=== PATIENT | male | born 1935 | race African-American/Black ===

== ENCOUNTER 2019-09-17 14:50 | Inpatient (IN) | payer MEDICARE, OTHER ==
[~2019-09-17] VITALS: Ht 165.1 cm; Wt 65.8 kg
[~2019-09-17 14:50] MED LIST: AMIO200T4 PO; ASPI325T8 PO; ATOR80TA72 PO; CARV25TA2 PO; DIGO125T PO; DILT120C99 PO; FOLI1TAB4 PO; FURO20TA3 PO; FURO40TA4 PO; HYDR-2761 PO; INSU100I11 SQ; LINA5TAB PO; LISI-334 PO; LISI-338 PO; LORA2ORA7 SL; METF10007 PO; METO50TA4 PO; MORP100S3 SL; OMEG1CAP27 PO; POTA10TA12 PO; TAMS0.4C97 PO
--- NOTE | 2019-09-17 15:17 | PHYS DOC ---
Past Medical History Past Medical History: Diabetes-Type II, Heart Disease Additional Past Medical Histor: BYPASS 1999 (CARMEN CHEN APRN) Past Surgical History: Coronary Bypass Surgery, Other Additional Past Surgical Histo: NECK, hand (CARMEN CHEN APRN) Alcohol Use: None Drug Use: None (CARMEN CHEN APRN) Adult General Chief Complaint Chief Complaint: BEDSORES HPI HPI Patient is a 84 year old male who presents with pressure ulcer. Living at home with daughter on Hospice for failure to thrive and weakness. Recent admission in June 2019. Offered placement in [place], refused so sent home on hospice Patient reports he has had a buttock ulcer since April. No wound care being provided. No fever. Bed bound at this time. He is resting in no distress. Arrived via EMS (CARMEN CHEN APRN) Review of Systems Review of Systems Constitutional: Denies fever or chills [] Eyes: Denies change in visual acuity, redness, or eye pain [] HENT: Denies nasal congestion or sore throat [] Respiratory: Denies cough or shortness of breath [] Cardiovascular: No additional information not addressed in HPI [] GI: Denies abdominal pain, nausea, vomiting, bloody stools or diarrhea [] : Denies dysuria or hematuria [] Musculoskeletal: Denies joint pain []c/o lower back pain, skin ulcer Integument: Denies rash or skin lesions [] Neurologic: Denies headache, focal weakness or sensory changes [] Endocrine: Denies polyuria or polydipsia [] All other systems were reviewed and found to be within normal limits, except as documented in this note. (CARMEN CHEN APRN) Current Medications Current Medications Current Medications Medications (Trade) Dose Ordered Sig/Pat Start Time Stop Time Status Last Admin Dose Admin Acetaminophen/ Hydrocodone Bitart (Lortab 5/325) 1 tab 1X ONCE 09/17/19 15:45 09/17/19 15:46 DC (BALDEMAR KONG MD) Allergies Allergies Allergies Coded Allergies Type Severity Reaction Last Updated Verified No Known Drug Allergies 05/17/19 No (BALDEMAR KONG MD) Physical Exam Physical Exam Constitutional: Well developed, well nourished, no acute distress, non-toxic appearance. [] HENT: Normocephalic, atraumatic, bilateral external ears normal, oropharynx moist, no oral exudates, nose normal. [] Eyes: PERRLA, EOMI, conjunctiva normal, no discharge. [] Neck: Normal range of motion, no tenderness, supple, no stridor. [] Cardiovascular:Heart rate regular rhythm, no murmur [] Lungs & Thorax: Bilateral breath sounds clear to auscultation [] Abdomen: Bowel sounds normal, soft, no tenderness, no masses, no pulsatile masses. [] Skin: Warm, dry, no erythema, no rash. [] Back: no CVA tenderness. [] Lower sacrum area 6cm stage 2 pressure ulcer scant dried up blood, no streaking or purulent drainage, no abscess. normal ROM of spine, no bony TTP Extremities: No tenderness, no cyanosis, no clubbing, ROM intact, no edema. [] Neurologic: Alert and oriented X 3, normal motor function, normal sensory function, no focal deficits noted. [] Psychologic: Affect normal, judgement normal, mood normal. [] (CARMEN CHEN APRN) Current Patient Data Vital Signs Vital Signs Date Time Temp Pulse Resp B/P (MAP) Pulse Ox O2 Delivery O2 Flow Rate FiO2 09/17/19 15:45 16 09/17/19 15:00 80 110/62 (78) 95 09/17/19 14:53 97.6 Room Air 97.6 (BALDEMAR KONG MD) Lab Values Please see chart, labs reviewed (CARMEN CHEN APRN) EKG EKG [] (CARMEN CHEN APRN) Radiology/Procedures Radiology/Procedures Chest xray, No acute finding, EP interpretation[] (CARMEN CHEN APRN) Impressions: Chronic sacral pressure ulcer, inability to ambulate, leukocytosis, renal failure (CARMEN CHEN APRN) Course & Med Decision Making Course & Med Decision Making Pertinent Labs and Imaging studies reviewed. (See chart for details) []Patient here via EMS for pressure ulcer, lives with daughter, on hospice for weakness and failure to thrive. Last admit in May, refused NH care at that time. He is bed bound. Daughter having a hard time caring for him. Chronic sacral pressure ulcer since April, was healed up but broke open over the last week. 2 days ago dressing fell off and daughter has no more dressings at home. No hourly sales staff on weekends to assist. She was worried about wound care and called 911 to bring to the ER. 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 He is unable to ambulate or perform basic ADL's Discussed wound care in the ER with close fu with social work administrator and Hospice for wound are and placement, daughter would like him to be admitted at this point to help expedite/manage care, she is unable to manage his care, patient is in agreement for inpatient and NH transfer. He is a full code Admitted to Hospitalist WBC result, 21. Added on lactic and blood cultures, remains with no fever. Hx of incontience. dairrhea last week. no abdominal pain Chronic dysphagia, will add on chest xray NS 500 cc bolus, not provided with 30ml/kg due to hx of CHF. BP stable Vancomycin and Zosyn Chest xray, no acute finding. Re- discussed case with Hospitalist to update on patient status. No further orders at this time (CARMEN CHEN APRN) Course & Med Decision Making Staff Physician Addendum: I was working in the ER during the course of this patient's visit. I was available for consultation as needed, but I was not directly involved in the care of this patient. (BALDEMAR KONG MD) Dragon Disclaimer Dragon Disclaimer This electronic medical record was generated, in whole or in part, using a voice recognition dictation system. (CARMEN CHEN APRN) Departure Departure Impression: Primary Impression: Pressure ulcer Additional Impressions: Leukocytosis Unable to ambulate Renal failure Disposition: ADMITTED INPATIENT ([place]) Condition: STABLE Referrals: LOREE DESAI (PCP) Problem Qualifiers CARMEN CHEN APRN Sep 17, 2019 15:17 BALDEMAR KONG MD Sep 18, 2019 23:11
[2019-09-17] MEDS ORDERED: HYDROcodone/APAP 5/325MG 1 TAB TABLET PO ONE (15:45)
--- NOTE | 2019-09-17 16:39 | PDOC1 ---
History and Physical Date of Admission Date of Admission DATE: 09/17/19 TIME: 16:27 Identification/Chief Complaint Chief Complaint Unable to care for self Source Source: Patient History of Present Illness History of Present Illness Mr Jacome is an 84yo M w/ PMHx Arthritis, Diabetes-Type II, Hypertension, CAD s/p CABG in 1999, systolic CHF with EF15% who came in per daughter from home for progressive generalized weakness, inability to urinate, and new bedbound status. He is unable to perform any activities of daily living and his daughter is unable to completely care for him by herself. He has been previously seen 4 additional times this year for episodes of atrial fibrillation, urinary retention, and BPH. Seen by PT/OT recommended rehabili tation at SNF last visit and his family decided to home with palliative/hospice home health, but now that he is completely bedbound for the past 3 weeks, and has bedsores for the same amount of time she feels he needs further care. Patient reports he has had a buttock ulcer since 3 weeks ago with no formal wound care being provided. No fevers. Bed bound at this time. He is resting in no distress. Arrived via EMS as his family could not get him into a private vehicle. WBC 21.6, Hb 11.1, K 5.6, BUN 62, Cr 2.8, glucose 245, admit for further care. Past Medical History Cardiovascular: AFIB, CAD, HTN, Hyperlipidemia, Other Pulmonary: No pertinent hx CENTRAL NERVOUS SYSTEM: Periperal neuropathy Musculoskeletal: Osteoarthritis Rheumatologic: Rheumatoid arthritis Renal/: Chronic renal insuff, UTI, Benign prostatic enlarg. Endocrine: Diabetes Past Surgical History Past Surgical History: CABG, Cataract Removal, Other Family History Family History: Diabetes Social History ALCOHOL: none Drugs: None Current Problem List Problem List Problems Medical Problems: (1) Pressure ulcer Status: Acute Current Medications Current Medications Current Medications Acetaminophen/ Hydrocodone Bitart (Lortab 5/325) 1 tab 1X ONCE PO ; Start 09/17/19 at 15:45; Stop 09/17/19 at 15:46; Status DC Active Scripts Active Lorazepam Intensol (Lorazepam) 2 Mg/1 Ml Oral.conc 2 Mg SL PRN Q6HRS PRN 30 Days Morphine Sulfate 100 Mg/5 Ml Solution 4 Mg SL PRN Q3HRS PRN 30 Days Humalog (Insulin Lispro) 100 Unit/1 Ml Insuln.pen 0 Units SQ TIDWMEALS 30 Days For BG 151-200 - 4u 201-250 - 5u 251-300 - 7u 301-350 - 9u >351 - Call Aspirin 325 Mg Tablet 325 Mg PO DAILYWBKFT 30 Days Flomax (Tamsulosin Hcl) 0.4 Mg Cap.er.24h 0.4 Mg PO QHS 30 Days Reported Furosemide 40 Mg Tablet 40 Mg PO DAILY Amiodarone Hcl 200 Mg Tablet 200 Mg PO DAILY Centrum Silver Chewable Tablet (Folic Acid/Multivits-Min/Lut) 1 Each Tab.chew 1 Each PO DAILY08 Tradjenta (Linagliptin) 5 Mg Tablet 5 Mg PO DAILY Potassium Chloride 10 Meq Tablet.er 10 Meq PO DAILY Fish Oil 1,000 Mg Softgel ([place]-3 Fatty Acids/Fish Oil) 1 Each Capsule 1 Each PO DAILY Atorvastatin Calcium 80 Mg Tablet 40 Mg PO DAILY Allergies Allergies: Coded Allergies: No Known Drug Allergies (Unverified , 05/17/19) Physical Exam General: Alert, Cooperative, mild distress HEENT: Atraumatic, PERRLA, EOMI, Mucous membr. moist/pink Lungs: Clear to auscultation, Normal air movement Heart: S1S2, irregularly irregular Abdomen: Normal bowel sounds, Soft, No tenderness, No hepatosplenomegaly, No masses Rectal Exam: hemorrhoids Extremities: No clubbing, No cyanosis, No edema, Normal pulses, No tenderness/swelling Skin: Other (Large 4x6cm foul smelling decubitus ulcer with some fat tissue visible, mostly stage II, part stage III) Neuro: Reflexes 2+, Other (Decreased sensation in glove and stocking distribution) Vitals Vitals Vital Signs Date Time Temp Pulse Resp B/P (MAP) Pulse Ox O2 Delivery O2 Flow Rate FiO2 09/17/19 15:45 16 09/17/19 14:53 97.6 85 106/56 (73) 95 Room Air 97.6 VTE Prophylaxis Ordered VTE Prophylaxis Devices: Yes VTE Pharmacological Prophylaxi: Yes Assessment/Plan Assessment/Plan A/P: Sacral decubitus ulcer - with foul-smell, likely infected, based on his WBC as well. Will give empiric vancomycin, ceftriaxone. Consult ID RYAN on CKD2 - likely vasomotor nephropathy, unable to feed himself. Was active with hospice at home, but feels he needs hospice in a SNF setting Hyperkalemia - K 5.6, will hold potassium supplements, 1L NSS, will not likely be able to give more given his severe CHF Leukocytosis - no diarrhea per his sister, this is likely from his sacral ulcer Unable to walk - 3 weeks bedbound Falls at home recurrently - now bedbound Adult failure to thrive - nutrition to see Severe benign prostatic hypertrophy - cont flomax, previously required a elaine Diabetes - previously controlled. Now hyperglycemic. Basal bolus plus regimen in house Cognitive decline - progressive A fib s.p RVR - converted. 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 Will monitor FEN - ADA cardiac diet PPX - Heparin CODE - DNR/DNI per patient and sister bedside Dispo - Inpatient for infected decubitis ulcer, needs SNF with hospice on d/c RITIKA COLLADO MD Sep 17, 2019 16:39
[2019-09-17 16:53] LABS: BASO % 0 % (0-3); EOS % 0 % (0-3); HEMATOCRIT 33.9 % (39.0-53.0); HEMOGLOBIN 11.1 g/dL (13.0-17.5); LYMPH # 0.7 x10^3/uL (1.0-4.8); LYMPH % 3 % (24-48); MEAN CORPUSCULAR HEMOGLOBIN 29 pg (25-35); MEAN CORPUSCULAR HGB CONC 33 g/dL (31-37); MEAN CORPUSCULAR VOLUME 88 fL (79-100); MONO # 0.7 x10^3/uL (0.0-1.1); MONO % 3 % (0-9); NEUT # 20.1 x10^3/uL (1.8-7.7); NEUT % 93 % (31-73); PLATELET COUNT 180 x10^3/uL (140-400); RED BLOOD COUNT 3.86 x10^6/uL (4.30-5.70); RED CELL DISTRIBUTION WIDTH 18.8 % (11.5-14.5); WHITE BLOOD COUNT 21.6 x10^3/uL (4.0-11.0)
[2019-09-17 16:58] LABS: CALCIUM 8.6 mg/dL (8.5-10.1); CREATININE 2.8 mg/dL (0.7-1.3); GFR 26.4; POTASSIUM 5.6 mmol/L (3.5-5.1)
[2019-09-17] MEDS ORDERED: fentaNYL PF VIAL 100 MCG/2 ML VIAL IV ONE (17:00)
[2019-09-17] MEDS ORDERED: fentaNYL PF VIAL 100 MCG/2 ML VIAL IV PRN (17:00)
[2019-09-17 17:10] LABS: % BANDS 4 % (0-9); % LYMPHS 7 % (24-48); % MONOS 4 % (0-10); % SEGS 85 % (35-66)
[2019-09-17] MEDS ORDERED: IV NORMAL SALINE 500ML BAG 500 ML IV ONE (17:15)
[2019-09-17] MEDS ORDERED: DEXTROSE 50% 25 GM / 50ML DISP.SYRIN. IV PRN (17:15)
[2019-09-17] MEDS ORDERED: IV NORMAL SALINE 1000ML BAG 1,000 ML IV ONE (17:15)
[2019-09-17] MEDS ORDERED: MORPHINE SULFATE 20 MG/ML CONC SOLUTION. SL PRN (17:15)
[2019-09-17] MEDS ORDERED: LORazepam INTENSOL 2 MG/ML ORAL.CONC SL PRN (17:15)
[2019-09-17 17:18] LABS: ACANTHOCYTES MANY; ANISOCYTOSIS MOD; PLT ESTIMATE ADEQUATE (ADEQUATE); POLYCHROMASIA SLIGHT; SCHISTOCYTES FEW
[2019-09-17 17:19] LABS: TOXIC GRANULATION SLIGHT; TOXIC VACUOLATION SLIGHT
[2019-09-17] MEDS ORDERED: VANCOMYCIN PER PHARMACY MC PRN (17:45)
[2019-09-17] MEDS ORDERED: PIP/TAZO PER PHARMACY MC PRN (17:45)
[2019-09-17] MEDS ORDERED: VANCOMYCIN 1.25 GM in IV NORMAL SALINE 250ML 250 ML IV ONE (18:00)
[2019-09-17] MEDS ORDERED: cefTRIAXone IV Push 1 GM VIAL. IVP SCH (18:00)
--- NOTE | 2019-09-17 18:52 | NUR ---
The patient, CEDRIC BRINK, 84 y/o, M admitted by RITIKA COLLADO MD, was given written information regarding hospital policies, unit procedures and contact persons. Valuables were checked and left with him.
[2019-09-17 19:00] VITALS: BP 107/61
[2019-09-17] MEDS: VANCOMYCIN PER PHARMACY MC PRN ×2 (19:31→20:19)
--- NOTE | 2019-09-17 20:19 | NUR ---
Pharmacy Vancomycin Dosing Note S:Consulted to monitor and dose vancomycin started 09/17/19. O:CEDRIC BRINK is a 84 year old M with Sepsis, Pressure ulcer Height: 5 feet, 5 inches Weight: 59kg [place] Body Weight: 61.50 Adjusted Body Weight: 60.50 Dosing Weight: Actual Other Antibiotics: ceftriaxone 1g q24h LABS: Last BUN: 62 Last Creatinine: 2.8 Creatinine Clearance: 16 mL/min Last WBC: 21.6 Last Procalcitonin: Tmax (past 24 hours): 97.6 Vancomycin Dosing: Loading Dose: 1250 mg x1 Dosing Weight: Actual Target Trough: 15-20 A: Based on: weight and renal function P: 1. Dose Vancomycin 1250 mg IV One Time 2. Follow up with labs in am to time future doses and levels 3. Pharmacy will continue to monitor, follow and adjust therapy as needed. Luz Elena Rice RPH, 09/17/19 2019
[2019-09-17] MEDS ORDERED: INSULIN LISPRO 300 UNITS/3 ML VIAL. SQ SCH (21:00)
[2019-09-17] MEDS: TAMSULOSIN 0.4 MG CAP.ER.24H. PO SCH (22:25)
[2019-09-17] MEDS: ATORVASTATIN CALCIUM 40 MG TABLET. PO SCH (22:25)
[2019-09-17] MEDS: INSULIN GLARGINE SYRINGE. SQ SCH (22:35)
[2019-09-17 23:00] VITALS: BP 103/62
[2019-09-18 00:40] LABS: BILIRUBIN,URINE SMALL (NEG); CLARITY,URINE CLOUDY; COLOR,URINE AMBER; NITRITE,URINE NEGATIVE (NEG); PH,URINE 5.5; PROTEIN,URINE 100 mg/dL (NEG-TRACE)
[2019-09-18 00:44] LABS: SQUAMOUS EPITHELIAL CELL,UR FEW /LPF
[2019-09-18 00:45] LABS: AMORPHOUS SEDIMENT,UR PRESENT /HPF; BACTERIA,URINE 0 /HPF (0-FEW); GRANULAR CASTS,URINE FEW /HPF; HYALINE CASTS, URINE FEW /HPF; WBC,URINE OCC /HPF (0-4)
--- NOTE | 2019-09-18 01:53 | RAD ---
PROCEDURE: CHEST AP ONLY CLINICAL INDICATION: Dysphagia related leukocytosis. COMPARISON: 06/23/2019 FINDINGS: CABG changes noted. No pneumothorax identified. Cardiac and mediastinal contours unremarkable. No pulmonary consolidation or acute airspace disease. No acute osseous abnormalities identified. IMPRESSION: No pulmonary consolidation or acute airspace disease. Electronically signed by: Solo Oliveira DO (09/18/2019 1:50 AM) [facility]
[2019-09-18 03:00] VITALS: BP 91/56
[2019-09-18 03:23] LABS: BASO # 0.1 x10^3/uL (0.0-0.2); BASO % 0 % (0-3); EOS % 0 % (0-3); HEMATOCRIT 29.3 % (39.0-53.0); HEMOGLOBIN 9.6 g/dL (13.0-17.5); LYMPH # 0.6 x10^3/uL (1.0-4.8); LYMPH % 3 % (24-48); MEAN CORPUSCULAR HEMOGLOBIN 29 pg (25-35); MEAN CORPUSCULAR HGB CONC 33 g/dL (31-37); MEAN CORPUSCULAR VOLUME 88 fL (79-100); MONO # 0.6 x10^3/uL (0.0-1.1); MONO % 3 % (0-9); NEUT % 93 % (31-73); PLATELET COUNT 152 x10^3/uL (140-400); RED BLOOD COUNT 3.34 x10^6/uL (4.30-5.70); RED CELL DISTRIBUTION WIDTH 18.3 % (11.5-14.5); WHITE BLOOD COUNT 19.3 x10^3/uL (4.0-11.0)
[2019-09-18 03:42] LABS: ALBUMIN/GLOBULIN RATIO 0.6 (1.0-1.7); CALCIUM 8.2 mg/dL (8.5-10.1); CREATININE 2.5 mg/dL (0.7-1.3); GFR 30.1; POTASSIUM 5.2 mmol/L (3.5-5.1); TOTAL BILIRUBIN 1.9 mg/dL (0.2-1.0); TOTAL PROTEIN 5.4 g/dL (6.4-8.2)
[2019-09-18 07:00] VITALS: BP 90/42
[2019-09-18] MEDS ORDERED: ACETAMINOPHEN 500 MG TABLET PO PRN (08:30)
[2019-09-18] MEDS ORDERED: ONDANSETRON PF 4 MG/2 ML VIAL. IVP PRN (08:30)
[2019-09-18] MEDS: OMEGA-3 FATTY ACIDS/FISH OIL 1,000 MG CAPSULE. PO SCH (09:00)
--- NOTE | 2019-09-18 09:42 | PDOC2 ---
CONSULT Date of Consult Date of Consult DATE: 09/18/19 TIME: 09:34 Reason for Consult Reason for Consult: RYAN Source Source: Chart review History of Present Illness Reason for Visit: Mr Jacome is 84yo AA M w/ PMHx Arthritis, Diabetes-Type II, Hypertension, CAD s/p CABG in 1999, systolic CHF with EF15% who came in per daughter from home for progressive generalized weakness, inability to urinate, and new bedbound status. He is unable to perform any activities of daily living and his daughter is unable to completely care for him by herself. He has been previously seen 4 additional times this year for episodes of atrial fibrillation, urinary retention, and BPH. Seen by PT/OT recommended rehabilitation at SNF last visit and his family decided to home with palliative/hospice home health, but now that he is completely bedbound for the past 3 weeks, and has bedsores for the same amount of time she feels he needs further care. Patient reports he has had a buttock ulcer since 3 weeks ago with no formal wound care being provided. No fevers. Bed bound at this time. Past Medical History Cardiovascular: AFIB, CAD, HTN, Hyperlipidemia, Other Pulmonary: No pertinent hx CENTRAL NERVOUS SYSTEM: Periperal neuropathy Musculoskeletal: Osteoarthritis Rheumatologic: Rheumatoid arthritis Renal/: Chronic renal insuff, UTI, Benign prostatic enlarg. Endocrine: Diabetes Past Surgical History Past Surgical History: CABG, Cataract Removal, Other Family History Family History: Diabetes Social History ALCOHOL: none Drugs: None Lives: with Family Current Problem List Problem List Problems Medical Problems: (1) Leukocytosis Status: Acute (2) Pressure ulcer Status: Acute (3) Unable to ambulate Status: Acute Current Medications Current Medications Current Medications Acetaminophen/ Hydrocodone Bitart (Lortab 5/325) 1 tab 1X ONCE PO ; Start 09/17/19 at 15:45; Stop 09/17/19 at 15:46; Status DC Fentanyl Citrate (Fentanyl 2ml Vial) 25 mcg 1X ONCE IV Last administered on 09/17/19at 16:58; Start 09/17/19 at 17:00; Stop 09/17/19 at 17:01; Status DC Fentanyl Citrate (Fentanyl 2ml Vial) 25 mcg PRN Q3HRS PRN IV PAIN Last administered on 09/17/19at 18:31; Start 09/17/19 at 17:00; Stop 09/18/19 at 16:59 Sodium Chloride 500 ml @ 500 mls/hr 1X ONCE IV Last administered on 09/17/19at 17:11; Start 09/17/19 at 17:15; Stop 09/17/19 at 18:14; Status DC Amiodarone HCl (Cordarone) 200 mg DAILY PO ; Start 09/18/19 at 09:00 Aspirin (Rachel Aspirin) 325 mg DAILYWBKFT PO ; Start 09/18/19 at 08:00 Lorazepam (Ativan Intensol) 2 mg PRN Q6HRS PRN SL ANXIETY / AGITATION; Start 09/17/19 at 17:15 Morphine Sulfate (Roxanol Conc) 4 mg PRN Q3HRS PRN SL PAIN; Start 09/17/19 at 17:15 Tamsulosin HCl (Flomax) 0.4 mg QHS PO Last administered on 09/17/19at 22:25; Start 09/17/19 at 21:00 Atorvastatin Calcium (Lipitor) 40 mg QHS PO Last administered on 09/17/19at 22:25; Start 09/17/19 at 21:00 Multivitamins (Thera M Plus) 1 tab DAILY PO ; Start 09/18/19 at 09:00 Fish Oil (Fish Oil) 1,000 mg DAILY PO ; Start 09/18/19 at 09:00 Sodium Chloride 1,000 ml @ 75 mls/hr 1X ONCE IV Last administered on 09/17/19at 22:48; Start 09/17/19 at 17:15; Stop 09/18/19 at 06:34; Status DC Vancomycin HCl 1.25 gm/Sodium Chloride 250 ml @ 166.667 mls/hr 1X ONCE IV Last administered on 09/17/19at 22:48; Start 09/17/19 at 18:00; Stop 09/17/19 at 19:29; Status DC Vancomycin HCl (Vanco Per Pharmacy) 1 each PRN DAILY PRN MC SEE COMMENTS Last administered on 09/17/19at 20:19; Start 09/17/19 at 17:15 Ceftriaxone Sodium (Rocephin) 1 gm Q24H IVP Last administered on 09/17/19at 17:47; Start 09/17/19 at 18:00 Insulin Glargine (Lantus Syringe) 8 unit QHS SQ Last administered on 09/17/19at 22:35; Start 09/17/19 at 21:00 Insulin Human Lispro (HumaLOG) 0-7 UNITS TIDACHC SQ Last administered on 09/17/19at 22:52; Start 09/17/19 at 21:00; Stop 09/18/19 at 08:30; Status DC Dextrose (Dextrose 50%-Water Syringe) 12.5 gm PRN Q15MIN PRN IV SEE COMMENTS; Start 09/17/19 at 17:15 Vancomycin HCl (Vanco Per Pharmacy) 1 each PRN DAILY PRN MC SEE COMMENTS; Start 09/17/19 at 17:45; Status UNV Piperacillin Sod/ Tazobactam Sod (Zosyn Per Pharmacy) 1 each PRN DAILY PRN MC SEE COMMENTS; Start 09/17/19 at 17:45; Status UNV Acetaminophen/ Hydrocodone Bitart (Lortab 5/325) 1 tab PRN Q4HRS PRN PO PAIN; Start 09/18/19 at 08:30 Ondansetron HCl (Zofran) 4 mg PRN Q6HRS PRN IVP NAUSEA/VOMITING; Start 09/18/19 at 08:30 Acetaminophen (Tylenol) 500 mg PRN Q6HRS PRN PO MILD PAIN / TEMP; Start 09/18/19 at 08:30 Linagliptin (Tradjenta) 5 mg DAILY PO ; Start 09/18/19 at 09:00 Active Scripts Active Lorazepam Intensol (Lorazepam) 2 Mg/1 Ml Oral.conc 2 Mg SL PRN Q6HRS PRN 30 Days Morphine Sulfate 100 Mg/5 Ml Solution 4 Mg SL PRN Q3HRS PRN 30 Days Humalog (Insulin Lispro) 100 Unit/1 Ml Insuln.pen 0 Units SQ TIDWMEALS 30 Days For BG 151-200 - 4u 201-250 - 5u 251-300 - 7u 301-350 - 9u >351 - Call Aspirin 325 Mg Tablet 325 Mg PO DAILYWBKFT 30 Days Flomax (Tamsulosin Hcl) 0.4 Mg Cap.er.24h 0.4 Mg PO QHS 30 Days Reported Furosemide 40 Mg Tablet 40 Mg PO DAILY Amiodarone Hcl 200 Mg Tablet 200 Mg PO DAILY Centrum Silver Chewable Tablet (Folic Acid/Multivits-Min/Lut) 1 Each Tab.chew 1 Each PO DAILY08 Tradjenta (Linagliptin) 5 Mg Tablet 5 Mg PO DAILY Potassium Chloride 10 Meq Tablet.er 10 Meq PO DAILY Fish Oil 1,000 Mg Softgel (Paoli-3 Fatty Acids/Fish Oil) 1 Each Capsule 1 Each PO DAILY Atorvastatin Calcium 80 Mg Tablet 40 Mg PO DAILY Allergies Allergies: Coded Allergies: No Known Drug Allergies (Unverified , 05/17/19) ROS Review of System Per HPI, rest negative Physical Exam Physical Exam GENERAL: NAD HEENT OM moist , On O2 by NC NECK Supple HEART: Normal S1, S2. LUNGS: Clear. ABDOMEN: Soft, NT EXTREMITIES: Trace edema - No Elaine NEURO- Grossly Normal SKIN - no Rash Vital Signs Vital Signs Date Time Temp Pulse Resp B/P (MAP) Pulse Ox O2 Delivery O2 Flow Rate FiO2 09/18/19 07:00 97.8 75 16 90/42 (58) 91 Room Air 97.8 Assessment & Plan RYAN - Vasomotor- Poor PO intake Has baseline CKD , UA unremarkable Improving with IVF - cautious with IVF EF of 15% Supportive care, strict I/O Monitor Check Renal US - c/o inability to urinate, per RN unable to place elaine , Had Elaine in past and severe BPH Hyperkalemia K supplements at home Held- Improved K mildly elevated. Monitor CKD-baseline Unknown Hospitalized in April with Cr 1.5 -1.7, peaked at 2.1 Renal US- Echogenic Kidneys Hypotension- On multiple BP meds as OP Currently Holding antihypertensives A fib with RVR - converted. Now in hospice Acute on chronic systolic CHF- stable, compensated ischemic cardiomyopathy with low EF 15% Recd Lasix IV per cardiology CAD, s/p CABG Severe benign prostatic hypertrophy- US in April no e/o BEE , previously required elaine DM - per primary Sacral decubitus ulcer - with foul-smell, ID consulted Leukocytosis Falls at home recurrently - now bedbound failure to thrive - nutrition to see CAD s/p CABG in 1999 - stable Hypertension - have backed off meds in hospice Severe ischemic cardiomyopathy with an EF of 15% - History of renal stones Labs Labs Laboratory Tests Test 09/17/19 16:40 09/17/19 20:40 09/17/19 21:42 09/18/19 00:30 White Blood Count 21.6 x10^3/uL (4.0-11.0) Red Blood Count 3.86 x10^6/uL (4.30-5.70) Hemoglobin 11.1 g/dL (13.0-17.5) Hematocrit 33.9 % (39.0-53.0) Mean Corpuscular Volume 88 fL (79-100) Mean Corpuscular Hemoglobin 29 pg (25-35) Mean Corpuscular Hemoglobin Concent 33 g/dL (31-37) Red Cell Distribution Width 18.8 % (11.5-14.5) Platelet Count 180 x10^3/uL (140-400) Neutrophils (%) (Auto) 93 % (31-73) Lymphocytes (%) (Auto) 3 % (24-48) Monocytes (%) (Auto) 3 % (0-9) Eosinophils (%) (Auto) 0 % (0-3) Basophils (%) (Auto) 0 % (0-3) Neutrophils # (Auto) 20.1 x10^3/uL (1.8-7.7) Lymphocytes # (Auto) 0.7 x10^3/uL (1.0-4.8) Monocytes # (Auto) 0.7 x10^3/uL (0.0-1.1) Eosinophils # (Auto) 0.0 x10^3/uL (0.0-0.7) Basophils # (Auto) 0.0 x10^3/uL (0.0-0.2) Segmented Neutrophils % 85 % (35-66) Band Neutrophils % 4 % (0-9) Lymphocytes % 7 % (24-48) Monocytes % 4 % (0-10) Toxic Granulation Slight Toxic Vacuolation Slight Platelet Estimate Adequate (ADEQUATE) Polychromasia Slight Anisocytosis Mod Acanthocytes Many Schistocytes Few Sodium Level 142 mmol/L (136-145) Potassium Level 5.6 mmol/L (3.5-5.1) Chloride Level 106 mmol/L (98-107) Carbon Dioxide Level 26 mmol/L (21-32) Anion Gap 10 (6-14) Blood Urea Nitrogen 62 mg/dL (8-26) Creatinine 2.8 mg/dL (0.7-1.3) Estimated GFR (Cockcroft-Gault) 26.4 Glucose Level 245 mg/dL (70-99) Lactic Acid Level 2.2 mmol/L (0.4-2.0) 1.8 mmol/L (0.4-2.0) Calcium Level 8.6 mg/dL (8.5-10.1) Glucose (Fingerstick) 228 mg/dL (70-99) Urine Collection Type Unknown Urine Color [place] Urine Clarity Cloudy Urine pH 5.5 Urine Specific [place] 1.015 Urine Protein 100 mg/dL (NEG-TRACE) Urine Glucose (UA) 100 mg/dL (NEG) Urine Ketones (Stick) Negative mg/dL (NEG) Urine Blood Large (NEG) Urine Nitrite Negative (NEG) Urine Bilirubin Small (NEG) Urine Urobilinogen Dipstick 1.0 mg/dL (0.2 mg/dL) Urine Leukocyte Esterase Negative (NEG) Urine RBC 3-5 /HPF (0-2) Urine WBC Occ /HPF (0-4) Urine Squamous Epithelial Cells Few /LPF Urine Amorphous Sediment Present /HPF Urine Bacteria 0 /HPF (0-FEW) Urine Hyaline Casts Few /HPF Urine Granular Casts Few /HPF Urine Mucus Mod /LPF Test 09/18/19 02:35 09/18/19 07:52 White Blood Count 19.3 x10^3/uL (4.0-11.0) Red Blood Count 3.34 x10^6/uL (4.30-5.70) Hemoglobin 9.6 g/dL (13.0-17.5) Hematocrit 29.3 % (39.0-53.0) Mean Corpuscular Volume 88 fL (79-100) Mean Corpuscular Hemoglobin 29 pg (25-35) Mean Corpuscular Hemoglobin Concent 33 g/dL (31-37) Red Cell Distribution Width 18.3 % (11.5-14.5) Platelet Count 152 x10^3/uL (140-400) Neutrophils (%) (Auto) 93 % (31-73) Lymphocytes (%) (Auto) 3 % (24-48) Monocytes (%) (Auto) 3 % (0-9) Eosinophils (%) (Auto) 0 % (0-3) Basophils (%) (Auto) 0 % (0-3) Neutrophils # (Auto) 18.0 x10^3/uL (1.8-7.7) Lymphocytes # (Auto) 0.6 x10^3/uL (1.0-4.8) Monocytes # (Auto) 0.6 x10^3/uL (0.0-1.1) Eosinophils # (Auto) 0.0 x10^3/uL (0.0-0.7) Basophils # (Auto) 0.1 x10^3/uL (0.0-0.2) Sodium Level 140 mmol/L (136-145) Potassium Level 5.2 mmol/L (3.5-5.1) Chloride Level 106 mmol/L (98-107) Carbon Dioxide Level 25 mmol/L (21-32) Anion Gap 9 (6-14) Blood Urea Nitrogen 59 mg/dL (8-26) Creatinine 2.5 mg/dL (0.7-1.3) Estimated GFR (Cockcroft-Gault) 30.1 BUN/Creatinine Ratio 24 (6-20) Glucose Level 237 mg/dL (70-99) Calcium Level 8.2 mg/dL (8.5-10.1) Total Bilirubin 1.9 mg/dL (0.2-1.0) Aspartate Amino Transf (AST/SGOT) 277 U/L (15-37) Alanine Aminotransferase (ALT/SGPT) 244 U/L (16-63) Alkaline Phosphatase 104 U/L (46-116) Total Protein 5.4 g/dL (6.4-8.2) Albumin 2.0 g/dL (3.4-5.0) Albumin/Globulin Ratio 0.6 (1.0-1.7) Glucose (Fingerstick) 216 mg/dL (70-99) Laboratory Tests Test 09/17/19 16:40 09/17/19 20:40 09/17/19 21:42 09/18/19 00:30 White Blood Count 21.6 x10^3/uL (4.0-11.0) Red Blood Count 3.86 x10^6/uL (4.30-5.70) Hemoglobin 11.1 g/dL (13.0-17.5) Hematocrit 33.9 % (39.0-53.0) Mean Corpuscular Volume 88 fL (79-100) Mean Corpuscular Hemoglobin 29 pg (25-35) Mean Corpuscular Hemoglobin Concent 33 g/dL (31-37) Red Cell Distribution Width 18.8 % (11.5-14.5) Platelet Count 180 x10^3/uL (140-400) Neutrophils (%) (Auto) 93 % (31-73) Lymphocytes (%) (Auto) 3 % (24-48) Monocytes (%) (Auto) 3 % (0-9) Eosinophils (%) (Auto) 0 % (0-3) Basophils (%) (Auto) 0 % (0-3) Neutrophils # (Auto) 20.1 x10^3/uL (1.8-7.7) Lymphocytes # (Auto) 0.7 x10^3/uL (1.0-4.8) Monocytes # (Auto) 0.7 x10^3/uL (0.0-1.1) Eosinophils # (Auto) 0.0 x10^3/uL (0.0-0.7) Basophils # (Auto) 0.0 x10^3/uL (0.0-0.2) Segmented Neutrophils % 85 % (35-66) Band Neutrophils % 4 % (0-9) Lymphocytes % 7 % (24-48) Monocytes % 4 % (0-10) Toxic Granulation Slight Toxic Vacuolation Slight Platelet Estimate Adequate (ADEQUATE) Polychromasia Slight Anisocytosis Mod Acanthocytes Many Schistocytes Few Sodium Level 142 mmol/L (136-145) Potassium Level 5.6 mmol/L (3.5-5.1) Chloride Level 106 mmol/L (98-107) Carbon Dioxide Level 26 mmol/L (21-32) Anion Gap 10 (6-14) Blood Urea Nitrogen 62 mg/dL (8-26) Creatinine 2.8 mg/dL (0.7-1.3) Estimated GFR (Cockcroft-Gault) 26.4 Glucose Level 245 mg/dL (70-99) Lactic Acid Level 2.2 mmol/L (0.4-2.0) 1.8 mmol/L (0.4-2.0) Calcium Level 8.6 mg/dL (8.5-10.1) Glucose (Fingerstick) 228 mg/dL (70-99) Urine Collection Type Unknown Urine Color [place] Urine Clarity Cloudy Urine pH 5.5 Urine Specific [place] 1.015 Urine Protein 100 mg/dL (NEG-TRACE) Urine Glucose (UA) 100 mg/dL (NEG) Urine Ketones (Stick) Negative mg/dL (NEG) Urine Blood Large (NEG) Urine Nitrite Negative (NEG) Urine Bilirubin Small (NEG) Urine Urobilinogen Dipstick 1.0 mg/dL (0.2 mg/dL) Urine Leukocyte Esterase Negative (NEG) Urine RBC 3-5 /HPF (0-2) Urine WBC Occ /HPF (0-4) Urine Squamous Epithelial Cells Few /LPF Urine Amorphous Sediment Present /HPF Urine Bacteria 0 /HPF (0-FEW) Urine Hyaline Casts Few /HPF Urine Granular Casts Few /HPF Urine Mucus Mod /LPF Test 09/18/19 02:35 09/18/19 07:52 White Blood Count 19.3 x10^3/uL (4.0-11.0) Red Blood Count 3.34 x10^6/uL (4.30-5.70) Hemoglobin 9.6 g/dL (13.0-17.5) Hematocrit 29.3 % (39.0-53.0) Mean Corpuscular Volume 88 fL (79-100) Mean Corpuscular Hemoglobin 29 pg (25-35) Mean Corpuscular Hemoglobin Concent 33 g/dL (31-37) Red Cell Distribution Width 18.3 % (11.5-14.5) Platelet Count 152 x10^3/uL (140-400) Neutrophils (%) (Auto) 93 % (31-73) Lymphocytes (%) (Auto) 3 % (24-48) Monocytes (%) (Auto) 3 % (0-9) Eosinophils (%) (Auto) 0 % (0-3) Basophils (%) (Auto) 0 % (0-3) Neutrophils # (Auto) 18.0 x10^3/uL (1.8-7.7) Lymphocytes # (Auto) 0.6 x10^3/uL (1.0-4.8) Monocytes # (Auto) 0.6 x10^3/uL (0.0-1.1) Eosinophils # (Auto) 0.0 x10^3/uL (0.0-0.7) Basophils # (Auto) 0.1 x10^3/uL (0.0-0.2) Sodium Level 140 mmol/L (136-145) Potassium Level 5.2 mmol/L (3.5-5.1) Chloride Level 106 mmol/L (98-107) Carbon Dioxide Level 25 mmol/L (21-32) Anion Gap 9 (6-14) Blood Urea Nitrogen 59 mg/dL (8-26) Creatinine 2.5 mg/dL (0.7-1.3) Estimated GFR (Cockcroft-Gault) 30.1 BUN/Creatinine Ratio 24 (6-20) Glucose Level 237 mg/dL (70-99) Calcium Level 8.2 mg/dL (8.5-10.1) Total Bilirubin 1.9 mg/dL (0.2-1.0) Aspartate Amino Transf (AST/SGOT) 277 U/L (15-37) Alanine Aminotransferase (ALT/SGPT) 244 U/L (16-63) Alkaline Phosphatase 104 U/L (46-116) Total Protein 5.4 g/dL (6.4-8.2) Albumin 2.0 g/dL (3.4-5.0) Albumin/Globulin Ratio 0.6 (1.0-1.7) Glucose (Fingerstick) 216 mg/dL (70-99) Review All relevant outside records, renal labs, imaging studies, telemetry/EKG's were reviewed. Images Images CxR- No pulmonary consolidation or acute airspace disease. MUNDO PEOPLES MD Sep 18, 2019 09:42
[2019-09-18] MEDS ORDERED: VANCOMYCIN PER PHARMACY MC PRN (10:15)
--- NOTE | 2019-09-18 10:45 | PDOC ---
Provider Note Provider Note Pt seen and examined ID Consult dictated [id number] Thank you DAYSI HENRIQUEZ MD Sep 18, 2019 10:45
[2019-09-18] MEDS: MEROPENEM 500 MG in IV NORMAL SALINE 50ML 50 ML IV SCH ×2 (10:59→23:34)
[2019-09-18 11:00] VITALS: BP 116/53
--- NOTE | 2019-09-18 11:02 | CONS ---
DATE OF CONSULTATION: 09/18/2019 REFERRING PHYSICIAN: Garcia Long MD REASON FOR CONSULTATION: Infected sacral wound, antibiotic management. HISTORY OF PRESENT ILLNESS: This is an 84-year-old male with a history of severe cardiomyopathy, atrial fibrillation, coronary artery disease, hypertension, hyperlipidemia, peripheral neuropathy, rheumatoid arthritis, osteoarthritis, CKD, BPH, history of renal stones, multiple hospitalizations this year, was home on hospice, brought in to [facility] for progressive generalized weakness, inability to urinate and sacral wound which came on a couple of weeks ago as he is completely bedbound. The patient's daughter was unable to take care of him by herself. He was found to have a fever and leukocytosis. He received a dose of vancomycin and ceftriaxone. The patient had LFT elevation. Nurse was unable to put Downing catheter. Urology service is not available here at [facility]. ID consult has been requested for antibiotic management. White count was 21,000 with a creatinine of 2.8. The patient has CKD, BUN of 62, glucose of 245. Blood cultures were done, 1/4 have been reported positive for gram-positive cocci. Final ID and PREET is pending at this time. The patient had chest x-ray, which showed no pulmonary consolidation. Today, the patient states he still continues to feel weak, feels slightly better since admission. No other complaints. PAST MEDICAL HISTORY: Atrial fibrillation, severe cardiomyopathy, coronary artery disease, hypertension, hyperlipidemia, peripheral neuropathy, rheumatoid arthritis, osteoarthritis, CKD, BPH, renal stones. PAST SURGICAL HISTORY: CABG, cataract, back and neck surgery. FAMILY HISTORY: As per HPI. SOCIAL HISTORY: No smoking. ALLERGIES: No known drug allergies. CURRENT MEDICATIONS: IV vancomycin and ceftriaxone daily. REVIEW OF SYSTEMS: Negative except for above, though is limited. PHYSICAL EXAMINATION: VITAL SIGNS: Temperature 97.8, T-max 100, pulse 75, respirations 16, blood pressure 90/42, oxygen saturation 91% on room air. GENERAL: Alert, awake male, lying in bed, cachectic, weak appearing, chronically ill. HEENT: Sclerae are anicteric, no thrush. NECK: Supple. LUNGS: Decreased breath sounds. HEART: S1, S2. ABDOMEN: Soft, obese. EXTREMITIES: Edema both lower extremities, mild. BACK: Large foul smelling decubitus sacral ulcer with surrounding redness and erythema, very close to the anal canal. DERMATOLOGIC: Warm, dry. No generalized rash except for above. CENTRAL NERVOUS SYSTEM: Alert and awake, moves all four extremities, though weak. PSYCHIATRIC: Unable to put Downing in place. IMPRESSION: 1. Fever.source large infected decubitus necrotic wound 2. Leukocytosis. 3. Bacteremia / bottles. ID and PREET pending. Source likely infected sacral wound. 4. Infected sacral wound with surrounding cellulitis. 5. Chronic kidney disease. 6. Atrial fibrillation. 7. History of benign prostatic hypertrophy with hematuria and inability to place Downing. 8. Generalized anasarca. 9. Generalized debility. 10.Dysphagia RECOMMENDATIONS: 1. Discontinue IV vancomycin and Rocephin. 2. Start empiric daptomycin, meropenem and micafungin. Dose of daptomycin and meropenem may need to be adjusted per renal function. 3. Consult General Surgery for I and D. 4. Repeat blood cultures in a.m. 5. Follow up GPC in blood cultures. 6. Continue local wound care. 7. Prognosis very poor. 8. Recommend palliative care. 9. Continue supportive care. 10. Continue offload. Discussed with RN. Thank you, Dr. Long for consulting Infectious Disease to participate in this patient's care. If you have any questions, do not hesitate to contact us. DAYSI HENRIQUEZ MD DR: PAULA/swetha JOB#: [id number] / [id number] JULIET
--- NOTE | 2019-09-18 11:11 | PDOC ---
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 History of Present Illness History of Present Illness he has no complaints Lives at home with dtr but clearly bed bound Agreeable to SNU Huge sacral wound, ID on board, K was high - was on kCl 10 meqs at home WBC 19, no efvers, non toxic appearing CREat 2,5 AST ALT high - no sxs, prev on hospice EF 15% DM 2 on Tradjenta Lowish BP Called by RN, GPC 12/02 bottles, 2 sets drawn PLAN: Start vanc per pharmacy On rocephin - will defer to ID HOld lasix and Kcl, actually getting hydrated by renal ID with wound care for the sacral SW - agreeable to SNU Follw BC - THEY ARE POSITIVE AND HE HAS A SACRALW OUND DNR PRev on hospice Vitals Vitals Vital Signs Date Time Temp Pulse Resp B/P (MAP) Pulse Ox O2 Delivery O2 Flow Rate FiO2 09/18/19 08:30 Room Air 09/18/19 07:00 97.8 75 16 90/42 (58) 91 97.8 Physical Exam General: Alert, Cooperative, mild distress Lungs: Clear Abdomen: Normal bowel sounds, Soft, No tenderness, No hepatosplenomegaly, No masses Extremities: No clubbing, No cyanosis, No edema, Normal pulses, No tenderness/swelling Skin: Other (Large 4x6cm foul smelling decubitus ulcer with some fat tissue visible, mostly stage II, part stage III) Labs LABS Laboratory Tests Test 09/17/19 16:40 09/17/19 20:40 09/17/19 21:42 09/18/19 00:30 White Blood Count 21.6 x10^3/uL (4.0-11.0) Red Blood Count 3.86 x10^6/uL (4.30-5.70) Hemoglobin 11.1 g/dL (13.0-17.5) Hematocrit 33.9 % (39.0-53.0) Mean Corpuscular Volume 88 fL (79-100) Mean Corpuscular Hemoglobin 29 pg (25-35) Mean Corpuscular Hemoglobin Concent 33 g/dL (31-37) Red Cell Distribution Width 18.8 % (11.5-14.5) Platelet Count 180 x10^3/uL (140-400) Neutrophils (%) (Auto) 93 % (31-73) Lymphocytes (%) (Auto) 3 % (24-48) Monocytes (%) (Auto) 3 % (0-9) Eosinophils (%) (Auto) 0 % (0-3) Basophils (%) (Auto) 0 % (0-3) Neutrophils # (Auto) 20.1 x10^3/uL (1.8-7.7) Lymphocytes # (Auto) 0.7 x10^3/uL (1.0-4.8) Monocytes # (Auto) 0.7 x10^3/uL (0.0-1.1) Eosinophils # (Auto) 0.0 x10^3/uL (0.0-0.7) Basophils # (Auto) 0.0 x10^3/uL (0.0-0.2) Segmented Neutrophils % 85 % (35-66) Band Neutrophils % 4 % (0-9) Lymphocytes % 7 % (24-48) Monocytes % 4 % (0-10) Toxic Granulation Slight Toxic Vacuolation Slight Platelet Estimate Adequate (ADEQUATE) Polychromasia Slight Anisocytosis Mod Acanthocytes Many Schistocytes Few Sodium Level 142 mmol/L (136-145) Potassium Level 5.6 mmol/L (3.5-5.1) Chloride Level 106 mmol/L (98-107) Carbon Dioxide Level 26 mmol/L (21-32) Anion Gap 10 (6-14) Blood Urea Nitrogen 62 mg/dL (8-26) Creatinine 2.8 mg/dL (0.7-1.3) Estimated GFR (Cockcroft-Gault) 26.4 Glucose Level 245 mg/dL (70-99) Lactic Acid Level 2.2 mmol/L (0.4-2.0) 1.8 mmol/L (0.4-2.0) Calcium Level 8.6 mg/dL (8.5-10.1) Glucose (Fingerstick) 228 mg/dL (70-99) Urine Collection Type Unknown Urine Color [place] Urine Clarity Cloudy Urine pH 5.5 Urine Specific [place] 1.015 Urine Protein 100 mg/dL (NEG-TRACE) Urine Glucose (UA) 100 mg/dL (NEG) Urine Ketones (Stick) Negative mg/dL (NEG) Urine Blood Large (NEG) Urine Nitrite Negative (NEG) Urine Bilirubin Small (NEG) Urine Urobilinogen Dipstick 1.0 mg/dL (0.2 mg/dL) Urine Leukocyte Esterase Negative (NEG) Urine RBC 3-5 /HPF (0-2) Urine WBC Occ /HPF (0-4) Urine Squamous Epithelial Cells Few /LPF Urine Amorphous Sediment Present /HPF Urine Bacteria 0 /HPF (0-FEW) Urine Hyaline Casts Few /HPF Urine Granular Casts Few /HPF Urine Mucus Mod /LPF Test 09/18/19 02:35 09/18/19 07:52 White Blood Count 19.3 x10^3/uL (4.0-11.0) Red Blood Count 3.34 x10^6/uL (4.30-5.70) Hemoglobin 9.6 g/dL (13.0-17.5) Hematocrit 29.3 % (39.0-53.0) Mean Corpuscular Volume 88 fL (79-100) Mean Corpuscular Hemoglobin 29 pg (25-35) Mean Corpuscular Hemoglobin Concent 33 g/dL (31-37) Red Cell Distribution Width 18.3 % (11.5-14.5) Platelet Count 152 x10^3/uL (140-400) Neutrophils (%) (Auto) 93 % (31-73) Lymphocytes (%) (Auto) 3 % (24-48) Monocytes (%) (Auto) 3 % (0-9) Eosinophils (%) (Auto) 0 % (0-3) Basophils (%) (Auto) 0 % (0-3) Neutrophils # (Auto) 18.0 x10^3/uL (1.8-7.7) Lymphocytes # (Auto) 0.6 x10^3/uL (1.0-4.8) Monocytes # (Auto) 0.6 x10^3/uL (0.0-1.1) Eosinophils # (Auto) 0.0 x10^3/uL (0.0-0.7) Basophils # (Auto) 0.1 x10^3/uL (0.0-0.2) Sodium Level 140 mmol/L (136-145) Potassium Level 5.2 mmol/L (3.5-5.1) Chloride Level 106 mmol/L (98-107) Carbon Dioxide Level 25 mmol/L (21-32) Anion Gap 9 (6-14) Blood Urea Nitrogen 59 mg/dL (8-26) Creatinine 2.5 mg/dL (0.7-1.3) Estimated GFR (Cockcroft-Gault) 30.1 BUN/Creatinine Ratio 24 (6-20) Glucose Level 237 mg/dL (70-99) Calcium Level 8.2 mg/dL (8.5-10.1) Total Bilirubin 1.9 mg/dL (0.2-1.0) Aspartate Amino Transf (AST/SGOT) 277 U/L (15-37) Alanine Aminotransferase (ALT/SGPT) 244 U/L (16-63) Alkaline Phosphatase 104 U/L (46-116) Total Protein 5.4 g/dL (6.4-8.2) Albumin 2.0 g/dL (3.4-5.0) Albumin/Globulin Ratio 0.6 (1.0-1.7) Glucose (Fingerstick) 216 mg/dL (70-99) Review of Systems Review of Systems weak, all else 14 pt he denies Assessment and Plan Assessmemt and Plan Problems Medical Problems: (1) Leukocytosis Status: Acute (2) Pressure ulcer Status: Acute (3) Unable to ambulate Status: Acute Comment Review of Relevant I have reviewed the following items christina (where applicable) has been applied. Labs Laboratory Tests Test 09/17/19 16:40 09/17/19 20:40 09/17/19 21:42 09/18/19 00:30 White Blood Count 21.6 x10^3/uL (4.0-11.0) Red Blood Count 3.86 x10^6/uL (4.30-5.70) Hemoglobin 11.1 g/dL (13.0-17.5) Hematocrit 33.9 % (39.0-53.0) Mean Corpuscular Volume 88 fL (79-100) Mean Corpuscular Hemoglobin 29 pg (25-35) Mean Corpuscular Hemoglobin Concent 33 g/dL (31-37) Red Cell Distribution Width 18.8 % (11.5-14.5) Platelet Count 180 x10^3/uL (140-400) Neutrophils (%) (Auto) 93 % (31-73) Lymphocytes (%) (Auto) 3 % (24-48) Monocytes (%) (Auto) 3 % (0-9) Eosinophils (%) (Auto) 0 % (0-3) Basophils (%) (Auto) 0 % (0-3) Neutrophils # (Auto) 20.1 x10^3/uL (1.8-7.7) Lymphocytes # (Auto) 0.7 x10^3/uL (1.0-4.8) Monocytes # (Auto) 0.7 x10^3/uL (0.0-1.1) Eosinophils # (Auto) 0.0 x10^3/uL (0.0-0.7) Basophils # (Auto) 0.0 x10^3/uL (0.0-0.2) Segmented Neutrophils % 85 % (35-66) Band Neutrophils % 4 % (0-9) Lymphocytes % 7 % (24-48) Monocytes % 4 % (0-10) Toxic Granulation Slight Toxic Vacuolation Slight Platelet Estimate Adequate (ADEQUATE) Polychromasia Slight Anisocytosis Mod Acanthocytes Many Schistocytes Few Sodium Level 142 mmol/L (136-145) Potassium Level 5.6 mmol/L (3.5-5.1) Chloride Level 106 mmol/L (98-107) Carbon Dioxide Level 26 mmol/L (21-32) Anion Gap 10 (6-14) Blood Urea Nitrogen 62 mg/dL (8-26) Creatinine 2.8 mg/dL (0.7-1.3) Estimated GFR (Cockcroft-Gault) 26.4 Glucose Level 245 mg/dL (70-99) Lactic Acid Level 2.2 mmol/L (0.4-2.0) 1.8 mmol/L (0.4-2.0) Calcium Level 8.6 mg/dL (8.5-10.1) Glucose (Fingerstick) 228 mg/dL (70-99) Urine Collection Type Unknown Urine Color [place] Urine Clarity Cloudy Urine pH 5.5 Urine Specific [place] 1.015 Urine Protein 100 mg/dL (NEG-TRACE) Urine Glucose (UA) 100 mg/dL (NEG) Urine Ketones (Stick) Negative mg/dL (NEG) Urine Blood Large (NEG) Urine Nitrite Negative (NEG) Urine Bilirubin Small (NEG) Urine Urobilinogen Dipstick 1.0 mg/dL (0.2 mg/dL) Urine Leukocyte Esterase Negative (NEG) Urine RBC 3-5 /HPF (0-2) Urine WBC Occ /HPF (0-4) Urine Squamous Epithelial Cells Few /LPF Urine Amorphous Sediment Present /HPF Urine Bacteria 0 /HPF (0-FEW) Urine Hyaline Casts Few /HPF Urine Granular Casts Few /HPF Urine Mucus Mod /LPF Test 09/18/19 02:35 09/18/19 07:52 White Blood Count 19.3 x10^3/uL (4.0-11.0) Red Blood Count 3.34 x10^6/uL (4.30-5.70) Hemoglobin 9.6 g/dL (13.0-17.5) Hematocrit 29.3 % (39.0-53.0) Mean Corpuscular Volume 88 fL (79-100) Mean Corpuscular Hemoglobin 29 pg (25-35) Mean Corpuscular Hemoglobin Concent 33 g/dL (31-37) Red Cell Distribution Width 18.3 % (11.5-14.5) Platelet Count 152 x10^3/uL (140-400) Neutrophils (%) (Auto) 93 % (31-73) Lymphocytes (%) (Auto) 3 % (24-48) Monocytes (%) (Auto) 3 % (0-9) Eosinophils (%) (Auto) 0 % (0-3) Basophils (%) (Auto) 0 % (0-3) Neutrophils # (Auto) 18.0 x10^3/uL (1.8-7.7) Lymphocytes # (Auto) 0.6 x10^3/uL (1.0-4.8) Monocytes # (Auto) 0.6 x10^3/uL (0.0-1.1) Eosinophils # (Auto) 0.0 x10^3/uL (0.0-0.7) Basophils # (Auto) 0.1 x10^3/uL (0.0-0.2) Sodium Level 140 mmol/L (136-145) Potassium Level 5.2 mmol/L (3.5-5.1) Chloride Level 106 mmol/L (98-107) Carbon Dioxide Level 25 mmol/L (21-32) Anion Gap 9 (6-14) Blood Urea Nitrogen 59 mg/dL (8-26) Creatinine 2.5 mg/dL (0.7-1.3) Estimated GFR (Cockcroft-Gault) 30.1 BUN/Creatinine Ratio 24 (6-20) Glucose Level 237 mg/dL (70-99) Calcium Level 8.2 mg/dL (8.5-10.1) Total Bilirubin 1.9 mg/dL (0.2-1.0) Aspartate Amino Transf (AST/SGOT) 277 U/L (15-37) Alanine Aminotransferase (ALT/SGPT) 244 U/L (16-63) Alkaline Phosphatase 104 U/L (46-116) Total Protein 5.4 g/dL (6.4-8.2) Albumin 2.0 g/dL (3.4-5.0) Albumin/Globulin Ratio 0.6 (1.0-1.7) Glucose (Fingerstick) 216 mg/dL (70-99) Laboratory Tests Test 09/17/19 16:40 09/17/19 20:40 09/17/19 21:42 09/18/19 00:30 White Blood Count 21.6 x10^3/uL (4.0-11.0) Red Blood Count 3.86 x10^6/uL (4.30-5.70) Hemoglobin 11.1 g/dL (13.0-17.5) Hematocrit 33.9 % (39.0-53.0) Mean Corpuscular Volume 88 fL (79-100) Mean Corpuscular Hemoglobin 29 pg (25-35) Mean Corpuscular Hemoglobin Concent 33 g/dL (31-37) Red Cell Distribution Width 18.8 % (11.5-14.5) Platelet Count 180 x10^3/uL (140-400) Neutrophils (%) (Auto) 93 % (31-73) Lymphocytes (%) (Auto) 3 % (24-48) Monocytes (%) (Auto) 3 % (0-9) Eosinophils (%) (Auto) 0 % (0-3) Basophils (%) (Auto) 0 % (0-3) Neutrophils # (Auto) 20.1 x10^3/uL (1.8-7.7) Lymphocytes # (Auto) 0.7 x10^3/uL (1.0-4.8) Monocytes # (Auto) 0.7 x10^3/uL (0.0-1.1) Eosinophils # (Auto) 0.0 x10^3/uL (0.0-0.7) Basophils # (Auto) 0.0 x10^3/uL (0.0-0.2) Segmented Neutrophils % 85 % (35-66) Band Neutrophils % 4 % (0-9) Lymphocytes % 7 % (24-48) Monocytes % 4 % (0-10) Toxic Granulation Slight Toxic Vacuolation Slight Platelet Estimate Adequate (ADEQUATE) Polychromasia Slight Anisocytosis Mod Acanthocytes Many Schistocytes Few Sodium Level 142 mmol/L (136-145) Potassium Level 5.6 mmol/L (3.5-5.1) Chloride Level 106 mmol/L (98-107) Carbon Dioxide Level 26 mmol/L (21-32) Anion Gap 10 (6-14) Blood Urea Nitrogen 62 mg/dL (8-26) Creatinine 2.8 mg/dL (0.7-1.3) Estimated GFR (Cockcroft-Gault) 26.4 Glucose Level 245 mg/dL (70-99) Lactic Acid Level 2.2 mmol/L (0.4-2.0) 1.8 mmol/L (0.4-2.0) Calcium Level 8.6 mg/dL (8.5-10.1) Glucose (Fingerstick) 228 mg/dL (70-99) Urine Collection Type Unknown Urine Color [place] Urine Clarity Cloudy Urine pH 5.5 Urine Specific [place] 1.015 Urine Protein 100 mg/dL (NEG-TRACE) Urine Glucose (UA) 100 mg/dL (NEG) Urine Ketones (Stick) Negative mg/dL (NEG) Urine Blood Large (NEG) Urine Nitrite Negative (NEG) Urine Bilirubin Small (NEG) Urine Urobilinogen Dipstick 1.0 mg/dL (0.2 mg/dL) Urine Leukocyte Esterase Negative (NEG) Urine RBC 3-5 /HPF (0-2) Urine WBC Occ /HPF (0-4) Urine Squamous Epithelial Cells Few /LPF Urine Amorphous Sediment Present /HPF Urine Bacteria 0 /HPF (0-FEW) Urine Hyaline Casts Few /HPF Urine Granular Casts Few /HPF Urine Mucus Mod /LPF Test 09/18/19 02:35 09/18/19 07:52 White Blood Count 19.3 x10^3/uL (4.0-11.0) Red Blood Count 3.34 x10^6/uL (4.30-5.70) Hemoglobin 9.6 g/dL (13.0-17.5) Hematocrit 29.3 % (39.0-53.0) Mean Corpuscular Volume 88 fL (79-100) Mean Corpuscular Hemoglobin 29 pg (25-35) Mean Corpuscular Hemoglobin Concent 33 g/dL (31-37) Red Cell Distribution Width 18.3 % (11.5-14.5) Platelet Count 152 x10^3/uL (140-400) Neutrophils (%) (Auto) 93 % (31-73) Lymphocytes (%) (Auto) 3 % (24-48) Monocytes (%) (Auto) 3 % (0-9) Eosinophils (%) (Auto) 0 % (0-3) Basophils (%) (Auto) 0 % (0-3) Neutrophils # (Auto) 18.0 x10^3/uL (1.8-7.7) Lymphocytes # (Auto) 0.6 x10^3/uL (1.0-4.8) Monocytes # (Auto) 0.6 x10^3/uL (0.0-1.1) Eosinophils # (Auto) 0.0 x10^3/uL (0.0-0.7) Basophils # (Auto) 0.1 x10^3/uL (0.0-0.2) Sodium Level 140 mmol/L (136-145) Potassium Level 5.2 mmol/L (3.5-5.1) Chloride Level 106 mmol/L (98-107) Carbon Dioxide Level 25 mmol/L (21-32) Anion Gap 9 (6-14) Blood Urea Nitrogen 59 mg/dL (8-26) Creatinine 2.5 mg/dL (0.7-1.3) Estimated GFR (Cockcroft-Gault) 30.1 BUN/Creatinine Ratio 24 (6-20) Glucose Level 237 mg/dL (70-99) Calcium Level 8.2 mg/dL (8.5-10.1) Total Bilirubin 1.9 mg/dL (0.2-1.0) Aspartate Amino Transf (AST/SGOT) 277 U/L (15-37) Alanine Aminotransferase (ALT/SGPT) 244 U/L (16-63) Alkaline Phosphatase 104 U/L (46-116) Total Protein 5.4 g/dL (6.4-8.2) Albumin 2.0 g/dL (3.4-5.0) Albumin/Globulin Ratio 0.6 (1.0-1.7) Glucose (Fingerstick) 216 mg/dL (70-99) Microbiology 09/17/19 Blood Culture - Final, Complete Medications Current Medications Acetaminophen/ Hydrocodone Bitart (Lortab 5/325) 1 tab 1X ONCE PO ; Start 09/17/19 at 15:45; Stop 09/17/19 at 15:46; Status DC Fentanyl Citrate (Fentanyl 2ml Vial) 25 mcg 1X ONCE IV Last administered on 09/17/19at 16:58; Start 09/17/19 at 17:00; Stop 09/17/19 at 17:01; Status DC Fentanyl Citrate (Fentanyl 2ml Vial) 25 mcg PRN Q3HRS PRN IV PAIN Last administered on 09/17/19at 18:31; Start 09/17/19 at 17:00; Stop 09/18/19 at 16:59 Sodium Chloride 500 ml @ 500 mls/hr 1X ONCE IV Last administered on 09/17/19at 17:11; Start 09/17/19 at 17:15; Stop 09/17/19 at 18:14; Status DC Amiodarone HCl (Cordarone) 200 mg DAILY PO ; Start 09/18/19 at 09:00 Aspirin (Rachel Aspirin) 325 mg DAILYWBKFT PO ; Start 09/18/19 at 08:00 Lorazepam (Ativan Intensol) 2 mg PRN Q6HRS PRN SL ANXIETY / AGITATION; Start 09/17/19 at 17:15 Morphine Sulfate (Roxanol Conc) 4 mg PRN Q3HRS PRN SL PAIN; Start 09/17/19 at 17:15 Tamsulosin HCl (Flomax) 0.4 mg QHS PO Last administered on 09/17/19at 22:25; Start 09/17/19 at 21:00 Atorvastatin Calcium (Lipitor) 40 mg QHS PO Last administered on 09/17/19at 22:25; Start 09/17/19 at 21:00 Multivitamins (Thera M Plus) 1 tab DAILY PO ; Start 09/18/19 at 09:00 Fish Oil (Fish Oil) 1,000 mg DAILY PO ; Start 09/18/19 at 09:00 Sodium Chloride 1,000 ml @ 75 mls/hr 1X ONCE IV Last administered on 09/17/19at 22:48; Start 09/17/19 at 17:15; Stop 09/18/19 at 06:34; Status DC Vancomycin HCl 1.25 gm/Sodium Chloride 250 ml @ 166.667 mls/hr 1X ONCE IV Last administered on 09/17/19at 22:48; Start 09/17/19 at 18:00; Stop 09/17/19 at 19:29; Status DC Vancomycin HCl (Vanco Per Pharmacy) 1 each PRN DAILY PRN MC SEE COMMENTS Last administered on 09/17/19at 20:19; Start 09/17/19 at 17:15; Stop 09/18/19 at 10:37; Status DC Ceftriaxone Sodium (Rocephin) 1 gm Q24H IVP Last administered on 09/17/19at 17:47; Start 09/17/19 at 18:00 Insulin Glargine (Lantus Syringe) 8 unit QHS SQ Last administered on 09/17/19at 22:35; Start 09/17/19 at 21:00 Insulin Human Lispro (HumaLOG) 0-7 UNITS TIDACHC SQ Last administered on 09/17/19at 22:52; Start 09/17/19 at 21:00; Stop 09/18/19 at 08:30; Status DC Dextrose (Dextrose 50%-Water Syringe) 12.5 gm PRN Q15MIN PRN IV SEE COMMENTS; Start 09/17/19 at 17:15 Vancomycin HCl (Vanco Per Pharmacy) 1 each PRN DAILY PRN MC SEE COMMENTS; Start 09/17/19 at 17:45; Status UNV Piperacillin Sod/ Tazobactam Sod (Zosyn Per Pharmacy) 1 each PRN DAILY PRN MC SEE COMMENTS; Start 09/17/19 at 17:45; Status UNV Acetaminophen/ Hydrocodone Bitart (Lortab 5/325) 1 tab PRN Q4HRS PRN PO PAIN; Start 09/18/19 at 08:30 Ondansetron HCl (Zofran) 4 mg PRN Q6HRS PRN IVP NAUSEA/VOMITING; Start 09/18/19 at 08:30 Acetaminophen (Tylenol) 500 mg PRN Q6HRS PRN PO MILD PAIN / TEMP; Start 09/18/19 at 08:30 Linagliptin (Tradjenta) 5 mg DAILY PO ; Start 09/18/19 at 09:00 Vancomycin HCl (Vanco Per Pharmacy) 1 each PRN DAILY PRN MC SEE COMMENTS; Start 09/18/19 at 10:15; Stop 09/18/19 at 10:08; Status DC Daptomycin 390 mg/ Sodium Chloride 50 ml @ 100 mls/hr Q24H IV ; Start 09/18/19 at 13:00 Micafungin Sodium 100 mg/Dextrose 100 ml @ 100 mls/hr Q24H IV ; Start 09/18/19 at 12:00 Meropenem 500 mg/ Sodium Chloride 50 ml @ 100 mls/hr Q12HR IV Last administered on 09/18/19at 10:59; Start 09/18/19 at 11:30 Active Scripts Active Lorazepam Intensol (Lorazepam) 2 Mg/1 Ml Oral.conc 2 Mg SL PRN Q6HRS PRN 30 Days Morphine Sulfate 100 Mg/5 Ml Solution 4 Mg SL PRN Q3HRS PRN 30 Days Humalog (Insulin Lispro) 100 Unit/1 Ml Insuln.pen 0 Units SQ TIDWMEALS 30 Days For BG 151-200 - 4u 201-250 - 5u 251-300 - 7u 301-350 - 9u >351 - Call Aspirin 325 Mg Tablet 325 Mg PO DAILYWBKFT 30 Days Flomax (Tamsulosin Hcl) 0.4 Mg Cap.er.24h 0.4 Mg PO QHS 30 Days Reported Furosemide 40 Mg Tablet 40 Mg PO DAILY Amiodarone Hcl 200 Mg Tablet 200 Mg PO DAILY Centrum Silver Chewable Tablet (Folic Acid/Multivits-Min/Lut) 1 Each Tab.chew 1 Each PO DAILY08 Tradjenta (Linagliptin) 5 Mg Tablet 5 Mg PO DAILY Potassium Chloride 10 Meq Tablet.er 10 Meq PO DAILY Fish Oil 1,000 Mg Softgel ([place]-3 Fatty Acids/Fish Oil) 1 Each Capsule 1 Each PO DAILY Atorvastatin Calcium 80 Mg Tablet 40 Mg PO DAILY Vitals/I & O Vital Sign - Last 24 Hours 09/17/19 09/17/19 09/17/19 09/17/19 14:53 15:00 15:45 16:30 Temp 97.6 97.6 Pulse 85 80 75 Resp 18 16 16 16 B/P (MAP) 106/56 (73) 110/62 (78) 101/60 (74) Pulse Ox 95 95 95 O2 Delivery Room Air Room Air 09/17/19 09/17/19 09/17/19 09/17/19 16:58 18:10 18:31 18:58 Pulse 79 Resp 16 16 16 B/P (MAP) 102/58 (73) Pulse Ox 95 O2 Delivery Room Air 09/17/19 09/17/19 09/17/19 09/18/19 19:00 19:01 23:00 03:00 Temp 99.0 100.0 99.9 99.0 100.0 99.9 Pulse 81 80 81 Resp 22 18 18 18 B/P (MAP) 107/61 (76) 103/62 (76) 91/56 (68) Pulse Ox 96 96 91 92 O2 Delivery Room Air 09/18/19 09/18/19 07:00 08:30 Temp 97.8 97.8 Pulse 75 Resp 16 B/P (MAP) 90/42 (58) Pulse Ox 91 O2 Delivery Room Air Room Air Intake and Output 09/17/19 09/17/19 09/18/19 15:00 23:00 07:00 Intake Total 120 ml 360 ml Output Total 500 ml Balance 120 ml -140 ml MARITA VELAZQUEZ MD Sep 18, 2019 11:11
--- NOTE | 2019-09-18 11:19 | PDOC2 ---
USMAN SERRA SCREENER OPERATOR 09/18/19 1119: CONSULT Date of Consult Date of Consult DATE: 09/18/19 TIME: 11:13 Reason for Consult Reason for Consult: sacral decub Referring Physician Referring Physician: Dr Timmons Identification/Chief Complaint Chief Complaint worsening wound Source Source: Chart review, Patient History of Present Illness Reason for Visit: Has been staying with daughter. Wound to sacrum since April, has been increasingly worse in the last month. Worsening odor. Denies fevers or chills. Bed bound last few weeks, prior limited walking with assistance, mainly chair bound Past Medical History Cardiovascular: AFIB, CAD, HTN, Hyperlipidemia, Other Pulmonary: No pertinent hx CENTRAL NERVOUS SYSTEM: Periperal neuropathy Musculoskeletal: Osteoarthritis Rheumatologic: Rheumatoid arthritis Renal/: Chronic renal insuff, UTI, Benign prostatic enlarg. Endocrine: Diabetes Past Surgical History Past Surgical History: CABG, Cataract Removal, Other Family History Family History: Diabetes Social History ALCOHOL: none Drugs: None Lives: with Family Current Problem List Problem List Problems Medical Problems: (1) Leukocytosis Status: Acute (2) Pressure ulcer Status: Acute (3) Unable to ambulate Status: Acute Current Medications Current Medications Current Medications Acetaminophen/ Hydrocodone Bitart (Lortab 5/325) 1 tab 1X ONCE PO ; Start 09/17/19 at 15:45; Stop 09/17/19 at 15:46; Status DC Fentanyl Citrate (Fentanyl 2ml Vial) 25 mcg 1X ONCE IV Last administered on 09/17/19at 16:58; Start 09/17/19 at 17:00; Stop 09/17/19 at 17:01; Status DC Fentanyl Citrate (Fentanyl 2ml Vial) 25 mcg PRN Q3HRS PRN IV PAIN Last administered on 09/17/19at 18:31; Start 09/17/19 at 17:00; Stop 09/18/19 at 16:59 Sodium Chloride 500 ml @ 500 mls/hr 1X ONCE IV Last administered on 09/17/19at 17:11; Start 09/17/19 at 17:15; Stop 09/17/19 at 18:14; Status DC Amiodarone HCl (Cordarone) 200 mg DAILY PO ; Start 09/18/19 at 09:00 Aspirin (Rachel Aspirin) 325 mg DAILYWBKFT PO ; Start 09/18/19 at 08:00 Lorazepam (Ativan Intensol) 2 mg PRN Q6HRS PRN SL ANXIETY / AGITATION; Start 09/17/19 at 17:15 Morphine Sulfate (Roxanol Conc) 4 mg PRN Q3HRS PRN SL PAIN; Start 09/17/19 at 17:15 Tamsulosin HCl (Flomax) 0.4 mg QHS PO Last administered on 09/17/19at 22:25; Start 09/17/19 at 21:00 Atorvastatin Calcium (Lipitor) 40 mg QHS PO Last administered on 09/17/19at 22:25; Start 09/17/19 at 21:00 Multivitamins (Thera M Plus) 1 tab DAILY PO ; Start 09/18/19 at 09:00 Fish Oil (Fish Oil) 1,000 mg DAILY PO ; Start 09/18/19 at 09:00 Sodium Chloride 1,000 ml @ 75 mls/hr 1X ONCE IV Last administered on 09/17/19at 22:48; Start 09/17/19 at 17:15; Stop 09/18/19 at 06:34; Status DC Vancomycin HCl 1.25 gm/Sodium Chloride 250 ml @ 166.667 mls/hr 1X ONCE IV Last administered on 09/17/19at 22:48; Start 09/17/19 at 18:00; Stop 09/17/19 at 19:29; Status DC Vancomycin HCl (Vanco Per Pharmacy) 1 each PRN DAILY PRN MC SEE COMMENTS Last administered on 09/17/19at 20:19; Start 09/17/19 at 17:15; Stop 09/18/19 at 10:37; Status DC Ceftriaxone Sodium (Rocephin) 1 gm Q24H IVP Last administered on 09/17/19at 17:47; Start 09/17/19 at 18:00 Insulin Glargine (Lantus Syringe) 8 unit QHS SQ Last administered on 09/17/19at 22:35; Start 09/17/19 at 21:00 Insulin Human Lispro (HumaLOG) 0-7 UNITS TIDACHC SQ Last administered on 09/17/19at 22:52; Start 09/17/19 at 21:00; Stop 09/18/19 at 08:30; Status DC Dextrose (Dextrose 50%-Water Syringe) 12.5 gm PRN Q15MIN PRN IV SEE COMMENTS; Start 09/17/19 at 17:15 Vancomycin HCl (Vanco Per Pharmacy) 1 each PRN DAILY PRN MC SEE COMMENTS; Start 09/17/19 at 17:45; Status UNV Piperacillin Sod/ Tazobactam Sod (Zosyn Per Pharmacy) 1 each PRN DAILY PRN MC SEE COMMENTS; Start 09/17/19 at 17:45; Status UNV Acetaminophen/ Hydrocodone Bitart (Lortab 5/325) 1 tab PRN Q4HRS PRN PO PAIN; Start 09/18/19 at 08:30 Ondansetron HCl (Zofran) 4 mg PRN Q6HRS PRN IVP NAUSEA/VOMITING; Start 09/18/19 at 08:30 Acetaminophen (Tylenol) 500 mg PRN Q6HRS PRN PO MILD PAIN / TEMP; Start 09/18/19 at 08:30 Linagliptin (Tradjenta) 5 mg DAILY PO ; Start 09/18/19 at 09:00 Vancomycin HCl (Vanco Per Pharmacy) 1 each PRN DAILY PRN MC SEE COMMENTS; Star t 09/18/19 at 10:15; Stop 09/18/19 at 10:08; Status DC Daptomycin 390 mg/ Sodium Chloride 50 ml @ 100 mls/hr Q24H IV ; Start 09/18/19 at 13:00 Micafungin Sodium 100 mg/Dextrose 100 ml @ 100 mls/hr Q24H IV ; Start 09/18/19 at 12:00 Meropenem 500 mg/ Sodium Chloride 50 ml @ 100 mls/hr Q12HR IV Last administered on 09/18/19at 10:59; Start 09/18/19 at 11:30 Active Scripts Active Lorazepam Intensol (Lorazepam) 2 Mg/1 Ml Oral.conc 2 Mg SL PRN Q6HRS PRN 30 Days Morphine Sulfate 100 Mg/5 Ml Solution 4 Mg SL PRN Q3HRS PRN 30 Days Humalog (Insulin Lispro) 100 Unit/1 Ml Insuln.pen 0 Units SQ TIDWMEALS 30 Days For BG 151-200 - 4u 201-250 - 5u 251-300 - 7u 301-350 - 9u >351 - Call Aspirin 325 Mg Tablet 325 Mg PO DAILYWBKFT 30 Days Flomax (Tamsulosin Hcl) 0.4 Mg Cap.er.24h 0.4 Mg PO QHS 30 Days Reported Furosemide 40 Mg Tablet 40 Mg PO DAILY Amiodarone Hcl 200 Mg Tablet 200 Mg PO DAILY Centrum Silver Chewable Tablet (Folic Acid/Multivits-Min/Lut) 1 Each Tab.chew 1 Each PO DAILY08 Tradjenta (Linagliptin) 5 Mg Tablet 5 Mg PO DAILY Potassium Chloride 10 Meq Tablet.er 10 Meq PO DAILY Fish Oil 1,000 Mg Softgel (Caroleen-3 Fatty Acids/Fish Oil) 1 Each Capsule 1 Each PO DAILY Atorvastatin Calcium 80 Mg Tablet 40 Mg PO DAILY Allergies Allergies: Coded Allergies: No Known Drug Allergies (Unverified , 05/17/19) ROS General: YES: Fatigue; No: Chills PSYCHOLOGICAL ROS: No: Anxiety, Depression Eyes: No Blurry vision, No Double vision HEENT: No: Heacaches, Sore Throat Hematological and Lymphatic: No: Bleeding Problems, Blood Clots Respiratory: No: Cough, Shortness of breath Cardiovascular: No Chest Pain, No Palpitations Gastrointestinal: No Nausea, No Vomiting, No Abdominal Pain Genitourinary: YES Incontinence, YES Retention Musculoskeletal: Yes Joint Stiffness, Yes Muscular Weakness Neurological: Yes Impaired Coord/balance; No Numbness/Tingling Skin: Yes Other (see hpi) Physical Exam General: Alert, Oriented X3, Cooperative, No acute distress HEENT: Atraumatic, PERRLA Lungs: Clear to auscultation, Normal air movement Heart: Regular rate, Normal S1, Normal S2 Abdomen: Soft, No tenderness, No hepatosplenomegaly Extremities: No clubbing, No cyanosis Skin: Other (sacral ulcer, some dusky central tissue, + odor, no drainage ) Vitals VITALS Vital Signs Date Time Temp Pulse Resp B/P (MAP) Pulse Ox O2 Delivery O2 Flow Rate FiO2 09/18/19 08:30 Room Air 09/18/19 07:00 97.8 75 16 90/42 (58 91 97.8 Labs Labs Laboratory Tests Test 09/17/19 16:40 09/17/19 20:40 09/17/19 21:42 09/18/19 00:30 White Blood Count 21.6 x10^3/uL (4.0-11.0) Red Blood Count 3.86 x10^6/uL (4.30-5.70) Hemoglobin 11.1 g/dL (13.0-17.5) Hematocrit 33.9 % (39.0-53.0) Mean Corpuscular Volume 88 fL (79-100) Mean Corpuscular Hemoglobin 29 pg (25-35) Mean Corpuscular Hemoglobin Concent 33 g/dL (31-37) Red Cell Distribution Width 18.8 % (11.5-14.5) Platelet Count 180 x10^3/uL (140-400) Neutrophils (%) (Auto) 93 % (31-73) Lymphocytes (%) (Auto) 3 % (24-48) Monocytes (%) (Auto) 3 % (0-9) Eosinophils (%) (Auto) 0 % (0-3) Basophils (%) (Auto) 0 % (0-3) Neutrophils # (Auto) 20.1 x10^3/uL (1.8-7.7) Lymphocytes # (Auto) 0.7 x10^3/uL (1.0-4.8) Monocytes # (Auto) 0.7 x10^3/uL (0.0-1.1) Eosinophils # (Auto) 0.0 x10^3/uL (0.0-0.7) Basophils # (Auto) 0.0 x10^3/uL (0.0-0.2) Segmented Neutrophils % 85 % (35-66) Band Neutrophils % 4 % (0-9) Lymphocytes % 7 % (24-48) Monocytes % 4 % (0-10) Toxic Granulation Slight Toxic Vacuolation Slight Platelet Estimate Adequate (ADEQUATE) Polychromasia Slight Anisocytosis Mod Acanthocytes Many Schistocytes Few Sodium Level 142 mmol/L (136-145) Potassium Level 5.6 mmol/L (3.5-5.1) Chloride Level 106 mmol/L (98-107) Carbon Dioxide Level 26 mmol/L (21-32) Anion Gap 10 (6-14) Blood Urea Nitrogen 62 mg/dL (8-26) Creatinine 2.8 mg/dL (0.7-1.3) Estimated GFR (Cockcroft-Gault) 26.4 Glucose Level 245 mg/dL (70-99) Lactic Acid Level 2.2 mmol/L (0.4-2.0) 1.8 mmol/L (0.4-2.0) Calcium Level 8.6 mg/dL (8.5-10.1) Glucose (Fingerstick) 228 mg/dL (70-99) Urine Collection Type Unknown Urine Color Dahiana Urine Clarity Cloudy Urine pH 5.5 Urine Specific Bowdle 1.015 Urine Protein 100 mg/dL (NEG-TRACE) Urine Glucose (UA) 100 mg/dL (NEG) Urine Ketones (Stick) Negative mg/dL (NEG) Urine Blood Large (NEG) Urine Nitrite Negative (NEG) Urine Bilirubin Small (NEG) Urine Urobilinogen Dipstick 1.0 mg/dL (0.2 mg/dL) Urine Leukocyte Esterase Negative (NEG) Urine RBC 3-5 /HPF (0-2) Urine WBC Occ /HPF (0-4) Urine Squamous Epithelial Cells Few /LPF Urine Amorphous Sediment Present /HPF Urine Bacteria 0 /HPF (0-FEW) Urine Hyaline Casts Few /HPF Urine Granular Casts Few /HPF Urine Mucus Mod /LPF Test 09/18/19 02:35 09/18/19 07:52 White Blood Count 19.3 x10^3/uL (4.0-11.0) Red Blood Count 3.34 x10^6/uL (4.30-5.70) Hemoglobin 9.6 g/dL (13.0-17.5) Hematocrit 29.3 % (39.0-53.0) Mean Corpuscular Volume 88 fL (79-100) Mean Corpuscular Hemoglobin 29 pg (25-35) Mean Corpuscular Hemoglobin Concent 33 g/dL (31-37) Red Cell Distribution Width 18.3 % (11.5-14.5) Platelet Count 152 x10^3/uL (140-400) Neutrophils (%) (Auto) 93 % (31-73) Lymphocytes (%) (Auto) 3 % (24-48) Monocytes (%) (Auto) 3 % (0-9) Eosinophils (%) (Auto) 0 % (0-3) Basophils (%) (Auto) 0 % (0-3) Neutrophils # (Auto) 18.0 x10^3/uL (1.8-7.7) Lymphocytes # (Auto) 0.6 x10^3/uL (1.0-4.8) Monocytes # (Auto) 0.6 x10^3/uL (0.0-1.1) Eosinophils # (Auto) 0.0 x10^3/uL (0.0-0.7) Basophils # (Auto) 0.1 x10^3/uL (0.0-0.2) Sodium Level 140 mmol/L (136-145) Potassium Level 5.2 mmol/L (3.5-5.1) Chloride Level 106 mmol/L (98-107) Carbon Dioxide Level 25 mmol/L (21-32) Anion Gap 9 (6-14) Blood Urea Nitrogen 59 mg/dL (8-26) Creatinine 2.5 mg/dL (0.7-1.3) Estimated GFR (Cockcroft-Gault) 30.1 BUN/Creatinine Ratio 24 (6-20) Glucose Level 237 mg/dL (70-99) Calcium Level 8.2 mg/dL (8.5-10.1) Total Bilirubin 1.9 mg/dL (0.2-1.0) Aspartate Amino Transf (AST/SGOT) 277 U/L (15-37) Alanine Aminotransferase (ALT/SGPT) 244 U/L (16-63) Alkaline Phosphatase 104 U/L (46-116) Total Protein 5.4 g/dL (6.4-8.2) Albumin 2.0 g/dL (3.4-5.0) Albumin/Globulin Ratio 0.6 (1.0-1.7) Glucose (Fingerstick) 216 mg/dL (70-99) Laboratory Tests Test 09/17/19 16:40 09/17/19 20:40 09/17/19 21:42 09/18/19 00:30 White Blood Count 21.6 x10^3/uL (4.0-11.0) Red Blood Count 3.86 x10^6/uL (4.30-5.70) Hemoglobin 11.1 g/dL (13.0-17.5) Hematocrit 33.9 % (39.0-53.0) Mean Corpuscular Volume 88 fL (79-100) Mean Corpuscular Hemoglobin 29 pg (25-35) Mean Corpuscular Hemoglobin Concent 33 g/dL (31-37) Red Cell Distribution Width 18.8 % (11.5-14.5) Platelet Count 180 x10^3/uL (140-400) Neutrophils (%) (Auto) 93 % (31-73) Lymphocytes (%) (Auto) 3 % (24-48) Monocytes (%) (Auto) 3 % (0-9) Eosinophils (%) (Auto) 0 % (0-3) Basophils (%) (Auto) 0 % (0-3) Neutrophils # (Auto) 20.1 x10^3/uL (1.8-7.7) Lymphocytes # (Auto) 0.7 x10^3/uL (1.0-4.8) Monocytes # (Auto) 0.7 x10^3/uL (0.0-1.1) Eosinophils # (Auto) 0.0 x10^3/uL (0.0-0.7) Basophils # (Auto) 0.0 x10^3/uL (0.0-0.2) Segmented Neutrophils % 85 % (35-66) Band Neutrophils % 4 % (0-9) Lymphocytes % 7 % (24-48) Monocytes % 4 % (0-10) Toxic Granulation Slight Toxic Vacuolation Slight Platelet Estimate Adequate (ADEQUATE) Polychromasia Slight Anisocytosis Mod Acanthocytes Many Schistocytes Few Sodium Level 142 mmol/L (136-145) Potassium Level 5.6 mmol/L (3.5-5.1) Chloride Level 106 mmol/L (98-107) Carbon Dioxide Level 26 mmol/L (21-32) Anion Gap 10 (6-14) Blood Urea Nitrogen 62 mg/dL (8-26) Creatinine 2.8 mg/dL (0.7-1.3) Estimated GFR (Cockcroft-Gault) 26.4 Glucose Level 245 mg/dL (70-99) Lactic Acid Level 2.2 mmol/L (0.4-2.0) 1.8 mmol/L (0.4-2.0) Calcium Level 8.6 mg/dL (8.5-10.1) Glucose (Fingerstick) 228 mg/dL (70-99) Urine Collection Type Unknown Urine Color Dahiana Urine Clarity Cloudy Urine pH 5.5 Urine Specific Bowdle 1.015 Urine Protein 100 mg/dL (NEG-TRACE) Urine Glucose (UA) 100 mg/dL (NEG) Urine Ketones (Stick) Negative mg/dL (NEG) Urine Blood Large (NEG) Urine Nitrite Negative (NEG) Urine Bilirubin Small (NEG) Urine Urobilinogen Dipstick 1.0 mg/dL (0.2 mg/dL) Urine Leukocyte Esterase Negative (NEG) Urine RBC 3-5 /HPF (0-2) Urine WBC Occ /HPF (0-4) Urine Squamous Epithelial Cells Few /LPF Urine Amorphous Sediment Present /HPF Urine Bacteria 0 /HPF (0-FEW) Urine Hyaline Casts Few /HPF Urine Granular Casts Few /HPF Urine Mucus Mod /LPF Test 09/18/19 02:35 09/18/19 07:52 White Blood Count 19.3 x10^3/uL (4.0-11.0) Red Blood Count 3.34 x10^6/uL (4.30-5.70) Hemoglobin 9.6 g/dL (13.0-17.5) Hematocrit 29.3 % (39.0-53.0) Mean Corpuscular Volume 88 fL (79-100) Mean Corpuscular Hemoglobin 29 pg (25-35) Mean Corpuscular Hemoglobin Concent 33 g/dL (31-37) Red Cell Distribution Width 18.3 % (11.5-14.5) Platelet Count 152 x10^3/uL (140-400) Neutrophils (%) (Auto) 93 % (31-73) Lymphocytes (%) (Auto) 3 % (24-48) Monocytes (%) (Auto) 3 % (0-9) Eosinophils (%) (Auto) 0 % (0-3) Basophils (%) (Auto) 0 % (0-3) Neutrophils # (Auto) 18.0 x10^3/uL (1.8-7.7) Lymphocytes # (Auto) 0.6 x10^3/uL (1.0-4.8) Monocytes # (Auto) 0.6 x10^3/uL (0.0-1.1) Eosinophils # (Auto) 0.0 x10^3/uL (0.0-0.7) Basophils # (Auto) 0.1 x10^3/uL (0.0-0.2) Sodium Level 140 mmol/L (136-145) Potassium Level 5.2 mmol/L (3.5-5.1) Chloride Level 106 mmol/L (98-107) Carbon Dioxide Level 25 mmol/L (21-32) Anion Gap 9 (6-14) Blood Urea Nitrogen 59 mg/dL (8-26) Creatinine 2.5 mg/dL (0.7-1.3) Estimated GFR (Cockcroft-Gault) 30.1 BUN/Creatinine Ratio 24 (6-20) Glucose Level 237 mg/dL (70-99) Calcium Level 8.2 mg/dL (8.5-10.1) Total Bilirubin 1.9 mg/dL (0.2-1.0) Aspartate Amino Transf (AST/SGOT) 277 U/L (15-37) Alanine Aminotransferase (ALT/SGPT) 244 U/L (16-63) Alkaline Phosphatase 104 U/L (46-116) Total Protein 5.4 g/dL (6.4-8.2) Albumin 2.0 g/dL (3.4-5.0) Albumin/Globulin Ratio 0.6 (1.0-1.7) Glucose (Fingerstick) 216 mg/dL (70-99) Assessment/Plan Assessment/Plan sacral decub, wound care will review with RIVERA Castillo MD 09/18/19 1132: CONSULT Assessment/Plan Assessment/Plan Pt seen and examined. Agree with Ms. Serra's note Pt pleasant, d/w pt's supportive daugheter pt with increasing problems with swallowing, pt not interested in feeding tube. Currently on hospice, but unable to be cared for at home. Large sacral decub ulcer. Given cardiac issues and hyperkalemia, poor surgical candidate agree with wound care and they would like to d/w palliative care team. Will follow for possible surgical intervention. Thanks for consult! USMAN SERRA APRN Sep 18, 2019 11:19 RIVERA BIANCHI MD Sep 18, 2019 11:32
[2019-09-18] MEDS: AMIODARONE HCL 200 MG TABLET. PO SCH (11:54)
[2019-09-18] MEDS: LINAGLIPTIN 5 MG TABLET PO SCH (11:54)
[2019-09-18] MEDS: ASPIRIN 325 MG TABLET PO SCH (11:54)
[2019-09-18] MEDS: MULTIVITAMIN with MINERAL TABLET. PO SCH (11:54)
[2019-09-18] MEDS: MICAFUNGIN 100 MG in IV DEXTROSE 5% 100ML 100 ML IV SCH (11:55)
[2019-09-18] MEDS: DAPTOmycin (GENERIC) IVPB 390 MG in IV NORMAL SALINE 50ML 50 ML IV SCH (13:21)
[2019-09-18 15:00] VITALS: BP 85/40
--- NOTE | 2019-09-18 15:50 | NUR ---
Wound Care Wound care consult for multiple wounds. Pt has DFU to left heel and right midfoot that are DTI/eschar, painted with Betadine and covered with foam. Pt left finger is scabbed/calloused, left KOKI. Pt coccyx is eschar and dark red with foul odor, covered with honey alginate and foam, Recommend to change every 2-3 days. No other wounds noted on full skin inspection. Pt on P500 bed, left on left side with heels floated. WC will continue to follow for possible changes.
[2019-09-18 19:00] VITALS: BP 100/52
[2019-09-18 23:00] VITALS: BP 102/56
[2019-09-18] MEDS: LACTOBACILLUS RHAMNOSUS GG 1 CAPSULE. PO SCH (23:33)
[2019-09-18] MEDS: TAMSULOSIN 0.4 MG CAP.ER.24H. PO SCH (23:33)
[2019-09-18] MEDS: ATORVASTATIN CALCIUM 40 MG TABLET. PO SCH (23:33)
[2019-09-18] MEDS: INSULIN GLARGINE SYRINGE. SQ SCH (23:44)
[2019-09-19] VITALS (7 sets, daily range): BP systolic 89–145; BP diastolic 39–73
[2019-09-19] MEDS: HYDROcodone/APAP 5/325MG 1 TAB TABLET PO PRN (03:34)
[2019-09-19 04:59] LABS: BASO # 0.1 x10^3/uL (0.0-0.2); BASO % 1 % (0-3); EOS % 0 % (0-3); HEMOGLOBIN 9.4 g/dL (13.0-17.5); LYMPH # 0.6 x10^3/uL (1.0-4.8); LYMPH % 4 % (24-48); MEAN CORPUSCULAR HEMOGLOBIN 29 pg (25-35); MEAN CORPUSCULAR HGB CONC 33 g/dL (31-37); MEAN CORPUSCULAR VOLUME 88 fL (79-100); MONO # 0.5 x10^3/uL (0.0-1.1); MONO % 3 % (0-9); NEUT # 13.2 x10^3/uL (1.8-7.7); NEUT % 92 % (31-73); PLATELET COUNT 164 x10^3/uL (140-400); RED BLOOD COUNT 3.28 x10^6/uL (4.30-5.70); RED CELL DISTRIBUTION WIDTH 18.4 % (11.5-14.5); WHITE BLOOD COUNT 14.3 x10^3/uL (4.0-11.0)
[2019-09-19 05:47] LABS: CALCIUM 8.2 mg/dL (8.5-10.1); CREATININE 2.6 mg/dL (0.7-1.3); GFR 28.7; POTASSIUM 5.2 mmol/L (3.5-5.1)
--- NOTE | 2019-09-19 07:53 | RAD ---
Examination: RENAL COMPLETE BILATERAL History: Acute renal insufficiency. A Downing catheter reportedly could not be placed.. Comparison/Correlation: None Findings: Right kidney measures 9.6 cm x 4.8 cm x 4 cm. Left kidney measures 8.9 cm x 4.4 cm x 2.8 cm. No hydronephrosis. Renal echotexture is echogenic. Renal contours are unremarkable. No renal calculi identified. Mild thinning of the right renal cortex is evident. Urinary bladder volume is 775 cc. Debris within the urinary bladder evident. Impression: No hydronephrosis. Distended urinary bladder with debris within it. Electronically signed by: Octavio Rehman MD (09/19/2019 7:50 AM) [facility]
[2019-09-19] MEDS ORDERED: ACETAMINOPHEN 325 MG TABLET. PO PRN (08:00)
[2019-09-19] MEDS ORDERED: IV NORMAL SALINE 500ML BAG 500 ML IV ONE (08:00)
--- NOTE | 2019-09-19 08:10 | NUR ---
SW consulted for placement with hospice. Chart reviewed and pt lives at home with daughter. Pt was discharged home with [facility] in June 2019. Palliative care consulted. Per chart review, pt appears to be a poor candidate for SNU and will need to be able work with PT/OT to qualify for SNU for insurance to approve placement. Plan 1. SW will await for Palliative care discussion. 2. Pt only has managed medicare and if family is interested in LTC placement with hospice, will discuss private pays for LTC vs Medicaid pending placement. 3. SW will continue to follow.
[2019-09-19] MEDS: MEROPENEM 500 MG in IV NORMAL SALINE 50ML 50 ML IV SCH ×2 (08:17→21:19)
[2019-09-19] MEDS: ASPIRIN 325 MG TABLET PO SCH (08:18)
[2019-09-19] MEDS: LINAGLIPTIN 5 MG TABLET PO SCH (08:18)
[2019-09-19] MEDS: MULTIVITAMIN with MINERAL TABLET. PO SCH (08:18)
[2019-09-19] MEDS: LACTOBACILLUS RHAMNOSUS GG 1 CAPSULE. PO SCH ×2 (08:18→21:19)
[2019-09-19] MEDS: OMEGA-3 FATTY ACIDS/FISH OIL 1,000 MG CAPSULE. PO SCH (08:19)
--- NOTE | 2019-09-19 08:30 | PDOC ---
Infectious Disease Note Subjective: Subjective Pt says feels the same tired had fevers but pattern improving d/w rn ROS: ROS Negative otherwise. Vital Signs: Vital Signs Vital Signs Date Time Temp Pulse Resp B/P (MAP) Pulse Ox O2 Delivery O2 Flow Rate FiO2 09/19/19 07:00 100.1 75 16 89/39 (56) 94 Room Air 100.1 Medications: Inpatient Meds: Current Medications Medications (Trade) Dose Ordered Sig/Pat Start Time Stop Time Status Last Admin Dose Admin Acetaminophen (Tylenol) 650 mg PRN Q6HRS PRN 09/19/19 08:00 09/19/19 08:19 650 MG Acetaminophen/ Hydrocodone Bitart (Lortab 5/325) 1 tab PRN Q4HRS PRN 09/18/19 08:30 09/19/19 03:34 1 TAB Amiodarone HCl (Cordarone) 200 mg DAILY 09/18/19 09:00 09/18/19 11:54 200 MG Aspirin (Rachel Aspirin) 325 mg DAILYWBKFT 09/18/19 08:00 09/19/19 08:18 325 MG Atorvastatin Calcium (Lipitor) 40 mg QHS 09/17/19 21:00 09/18/19 23:33 40 MG Ceftriaxone Sodium (Rocephin) 1 gm Q24H 09/17/19 18:00 09/18/19 12:11 DC 09/17/19 17:47 1 GM Daptomycin 390 mg/ Sodium Chloride 50 ml @ 100 mls/hr Q24H 09/18/19 13:00 09/18/19 13:21 100 MLS/HR Dextrose (Dextrose 50%-Water Syringe) 12.5 gm PRN Q15MIN PRN 09/17/19 17:15 Fentanyl Citrate (Fentanyl 2ml Vial) 25 mcg PRN Q3HRS PRN 09/17/19 17:00 09/18/19 16:59 DC 09/17/19 18:31 25 MCG Fish Oil (Fish Oil) 1,000 mg DAILY 09/18/19 09:00 09/19/19 08:19 1,000 MG Insulin Glargine (Lantus Syringe) 8 unit QHS 09/17/19 21:00 09/18/19 23:44 8 UNIT Insulin Human Lispro (HumaLOG) 0-7 UNITS TIDACHC 09/17/19 21:00 09/18/19 08:30 DC 09/17/19 22:52 2 UNITS Lactobacillus Rhamnosus (Culturelle) 1 cap BID 09/18/19 21:00 09/19/19 08:18 1 CAP Linagliptin (Tradjenta) 5 mg DAILY 09/18/19 09:00 09/19/19 08:18 5 MG Lorazepam (Ativan Intensol) 2 mg PRN Q6HRS PRN 09/17/19 17:15 Meropenem 500 mg/ Sodium Chloride 50 ml @ 100 mls/hr Q12HR 09/18/19 11:30 09/19/19 08:17 100 MLS/HR Micafungin Sodium 100 mg/Dextrose 100 ml @ 100 mls/hr Q24H 09/18/19 12:00 09/18/19 11:55 100 MLS/HR Morphine Sulfate (Roxanol Conc) 4 mg PRN Q3HRS PRN 09/17/19 17:15 Multivitamins (Thera M Plus) 1 tab DAILY 09/18/19 09:00 09/19/19 08:18 1 TAB Ondansetron HCl (Zofran) 4 mg PRN Q6HRS PRN 09/18/19 08:30 Piperacillin Sod/ Tazobactam Sod (Zosyn Per Pharmacy) 1 each PRN DAILY PRN 09/17/19 17:45 UNV Sodium Chloride 1,000 ml @ 100 mls/hr Q10H 09/19/19 08:00 Tamsulosin HCl (Flomax) 0.4 mg QHS 09/17/19 21:00 09/18/19 23:33 0.4 MG Vancomycin HCl (Vanco Per Pharmacy) 1 each PRN DAILY PRN 09/18/19 10:15 09/18/19 10:08 DC Vancomycin HCl 1.25 gm/Sodium Chloride 250 ml @ 166.667 mls/hr 1X ONCE 09/17/19 18:00 09/17/19 19:29 DC 09/17/19 22:48 166.667 MLS/HR Labs: Lab Laboratory Tests Test 09/18/19 11:48 09/18/19 16:43 09/18/19 20:49 09/19/19 03:11 Glucose (Fingerstick) 164 mg/dL (70-99) 155 mg/dL (70-99) 172 mg/dL (70-99) White Blood Count 14.3 x10^3/uL (4.0-11.0) Red Blood Count 3.28 x10^6/uL (4.30-5.70) Hemoglobin 9.4 g/dL (13.0-17.5) Hematocrit 29.0 % (39.0-53.0) Mean Corpuscular Volume 88 fL (79-100) Mean Corpuscular Hemoglobin 29 pg (25-35) Mean Corpuscular Hemoglobin Concent 33 g/dL (31-37) Red Cell Distribution Width 18.4 % (11.5-14.5) Platelet Count 164 x10^3/uL (140-400) Neutrophils (%) (Auto) 92 % (31-73) Lymphocytes (%) (Auto) 4 % (24-48) Monocytes (%) (Auto) 3 % (0-9) Eosinophils (%) (Auto) 0 % (0-3) Basophils (%) (Auto) 1 % (0-3) Neutrophils # (Auto) 13.2 x10^3/uL (1.8-7.7) Lymphocytes # (Auto) 0.6 x10^3/uL (1.0-4.8) Monocytes # (Auto) 0.5 x10^3/uL (0.0-1.1) Eosinophils # (Auto) 0.0 x10^3/uL (0.0-0.7) Basophils # (Auto) 0.1 x10^3/uL (0.0-0.2) Sodium Level 142 mmol/L (136-145) Potassium Level 5.2 mmol/L (3.5-5.1) Chloride Level 107 mmol/L (98-107) Carbon Dioxide Level 23 mmol/L (21-32) Anion Gap 12 (6-14) Blood Urea Nitrogen 60 mg/dL (8-26) Creatinine 2.6 mg/dL (0.7-1.3) Estimated GFR (Cockcroft-Gault) 28.7 Glucose Level 178 mg/dL (70-99) Calcium Level 8.2 mg/dL (8.5-10.1) Test 09/19/19 07:13 09/19/19 07:47 Glucose (Fingerstick) 113 mg/dL (70-99) Lactic Acid Level 1.4 mmol/L (0.4-2.0) Objective: Assessment: 1. Fever.source large infected decubitus necrotic wound 2. Leukocytosis. 3. Bacteremia / bottles. ID and PREET pending. Source likely infected sacral wound. 4. Infected sacral wound with surrounding cellulitis. 5. Chronic kidney disease. 6. Atrial fibrillation. 7. History of benign prostatic hypertrophy with hematuria and inability to place Downing. 8. Generalized anasarca. 9. Generalized debility. 10. Dysphagia 11. PCM Plan: Plan of Care daptomycin, meropenem and micafungin. Dose of daptomycin and meropenem may need to be adjusted per renal function. gen surgery following consider palliative consult f/u blood cultures Follow up GPC in blood cultures. Continue local wound care. Continue supportive care. Continue offload. Prognosis very poor. Discussed with RN. DAYSI HENRIQUEZ MD Sep 19, 2019 08:30
[2019-09-19] MEDS: AMIODARONE HCL 200 MG TABLET. PO SCH (08:31)
--- NOTE | 2019-09-19 09:20 | PDOC ---
SURGICAL PROGRESS NOTE Subjective sleeping did not awaken, family not present Vital Signs Vital Signs Date Time Temp Pulse Resp B/P (MAP) Pulse Ox O2 Delivery O2 Flow Rate FiO2 09/19/19 08:31 77 145/58 09/19/19 08:30 18 09/19/19 07:00 100.1 94 Room Air 100.1 I&O Intake and Output 09/19/19 07:00 Intake Total 610 ml Output Total 1220 ml Balance -610 ml Intake Oral 360 ml IV Total 250 ml Output Urine Total 1020 ml Emesis 200 ml Labs Laboratory Tests Test 09/17/19 16:40 09/17/19 20:40 09/17/19 21:42 09/18/19 00:30 White Blood Count 21.6 x10^3/uL (4.0-11.0) Red Blood Count 3.86 x10^6/uL (4.30-5.70) Hemoglobin 11.1 g/dL (13.0-17.5) Hematocrit 33.9 % (39.0-53.0) Mean Corpuscular Volume 88 fL (79-100) Mean Corpuscular Hemoglobin 29 pg (25-35) Mean Corpuscular Hemoglobin Concent 33 g/dL (31-37) Red Cell Distribution Width 18.8 % (11.5-14.5) Platelet Count 180 x10^3/uL (140-400) Neutrophils (%) (Auto) 93 % (31-73) Lymphocytes (%) (Auto) 3 % (24-48) Monocytes (%) (Auto) 3 % (0-9) Eosinophils (%) (Auto) 0 % (0-3) Basophils (%) (Auto) 0 % (0-3) Neutrophils # (Auto) 20.1 x10^3/uL (1.8-7.7) Lymphocytes # (Auto) 0.7 x10^3/uL (1.0-4.8) Monocytes # (Auto) 0.7 x10^3/uL (0.0-1.1) Eosinophils # (Auto) 0.0 x10^3/uL (0.0-0.7) Basophils # (Auto) 0.0 x10^3/uL (0.0-0.2) Segmented Neutrophils % 85 % (35-66) Band Neutrophils % 4 % (0-9) Lymphocytes % 7 % (24-48) Monocytes % 4 % (0-10) Toxic Granulation Slight Toxic Vacuolation Slight Platelet Estimate Adequate (ADEQUATE) Polychromasia Slight Anisocytosis Mod Acanthocytes Many Schistocytes Few Sodium Level 142 mmol/L (136-145) Potassium Level 5.6 mmol/L (3.5-5.1) Chloride Level 106 mmol/L (98-107) Carbon Dioxide Level 26 mmol/L (21-32) Anion Gap 10 (6-14) Blood Urea Nitrogen 62 mg/dL (8-26) Creatinine 2.8 mg/dL (0.7-1.3) Estimated GFR (Cockcroft-Gault) 26.4 Glucose Level 245 mg/dL (70-99) Lactic Acid Level 2.2 mmol/L (0.4-2.0) 1.8 mmol/L (0.4-2.0) Calcium Level 8.6 mg/dL (8.5-10.1) Glucose (Fingerstick) 228 mg/dL (70-99) Urine Collection Type Unknown Urine Color [place] Urine Clarity Cloudy Urine pH 5.5 Urine Specific [place] 1.015 Urine Protein 100 mg/dL (NEG-TRACE) Urine Glucose (UA) 100 mg/dL (NEG) Urine Ketones (Stick) Negative mg/dL (NEG) Urine Blood Large (NEG) Urine Nitrite Negative (NEG) Urine Bilirubin Small (NEG) Urine Urobilinogen Dipstick 1.0 mg/dL (0.2 mg/dL) Urine Leukocyte Esterase Negative (NEG) Urine RBC 3-5 /HPF (0-2) Urine WBC Occ /HPF (0-4) Urine Squamous Epithelial Cells Few /LPF Urine Amorphous Sediment Present /HPF Urine Bacteria 0 /HPF (0-FEW) Urine Hyaline Casts Few /HPF Urine Granular Casts Few /HPF Urine Mucus Mod /LPF Test 09/18/19 02:35 09/18/19 07:52 09/18/19 11:48 09/18/19 16:43 White Blood Count 19.3 x10^3/uL (4.0-11.0) Red Blood Count 3.34 x10^6/uL (4.30-5.70) Hemoglobin 9.6 g/dL (13.0-17.5) Hematocrit 29.3 % (39.0-53.0) Mean Corpuscular Volume 88 fL (79-100) Mean Corpuscular Hemoglobin 29 pg (25-35) Mean Corpuscular Hemoglobin Concent 33 g/dL (31-37) Red Cell Distribution Width 18.3 % (11.5-14.5) Platelet Count 152 x10^3/uL (140-400) Neutrophils (%) (Auto) 93 % (31-73) Lymphocytes (%) (Auto) 3 % (24-48) Monocytes (%) (Auto) 3 % (0-9) Eosinophils (%) (Auto) 0 % (0-3) Basophils (%) (Auto) 0 % (0-3) Neutrophils # (Auto) 18.0 x10^3/uL (1.8-7.7) Lymphocytes # (Auto) 0.6 x10^3/uL (1.0-4.8) Monocytes # (Auto) 0.6 x10^3/uL (0.0-1.1) Eosinophils # (Auto) 0.0 x10^3/uL (0.0-0.7) Basophils # (Auto) 0.1 x10^3/uL (0.0-0.2) Sodium Level 140 mmol/L (136-145) Potassium Level 5.2 mmol/L (3.5-5.1) Chloride Level 106 mmol/L (98-107) Carbon Dioxide Level 25 mmol/L (21-32) Anion Gap 9 (6-14) Blood Urea Nitrogen 59 mg/dL (8-26) Creatinine 2.5 mg/dL (0.7-1.3) Estimated GFR (Cockcroft-Gault) 30.1 BUN/Creatinine Ratio 24 (6-20) Glucose Level 237 mg/dL (70-99) Calcium Level 8.2 mg/dL (8.5-10.1) Total Bilirubin 1.9 mg/dL (0.2-1.0) Aspartate Amino Transf (AST/SGOT) 277 U/L (15-37) Alanine Aminotransferase (ALT/SGPT) 244 U/L (16-63) Alkaline Phosphatase 104 U/L (46-116) Total Protein 5.4 g/dL (6.4-8.2) Albumin 2.0 g/dL (3.4-5.0) Albumin/Globulin Ratio 0.6 (1.0-1.7) Glucose (Fingerstick) 216 mg/dL (70-99) 164 mg/dL (70-99) 155 mg/dL (70-99) Test 09/18/19 20:49 09/19/19 03:11 09/19/19 07:13 09/19/19 07:47 Glucose (Fingerstick) 172 mg/dL (70-99) 113 mg/dL (70-99) White Blood Count 14.3 x10^3/uL (4.0-11.0) Red Blood Count 3.28 x10^6/uL (4.30-5.70) Hemoglobin 9.4 g/dL (13.0-17.5) Hematocrit 29.0 % (39.0-53.0) Mean Corpuscular Volume 88 fL (79-100) Mean Corpuscular Hemoglobin 29 pg (25-35) Mean Corpuscular Hemoglobin Concent 33 g/dL (31-37) Red Cell Distribution Width 18.4 % (11.5-14.5) Platelet Count 164 x10^3/uL (140-400) Neutrophils (%) (Auto) 92 % (31-73) Lymphocytes (%) (Auto) 4 % (24-48) Monocytes (%) (Auto) 3 % (0-9) Eosinophils (%) (Auto) 0 % (0-3) Basophils (%) (Auto) 1 % (0-3) Neutrophils # (Auto) 13.2 x10^3/uL (1.8-7.7) Lymphocytes # (Auto) 0.6 x10^3/uL (1.0-4.8) Monocytes # (Auto) 0.5 x10^3/uL (0.0-1.1) Eosinophils # (Auto) 0.0 x10^3/uL (0.0-0.7) Basophils # (Auto) 0.1 x10^3/uL (0.0-0.2) Sodium Level 142 mmol/L (136-145) Potassium Level 5.2 mmol/L (3.5-5.1) Chloride Level 107 mmol/L (98-107) Carbon Dioxide Level 23 mmol/L (21-32) Anion Gap 12 (6-14) Blood Urea Nitrogen 60 mg/dL (8-26) Creatinine 2.6 mg/dL (0.7-1.3) Estimated GFR (Cockcroft-Gault) 28.7 Glucose Level 178 mg/dL (70-99) Calcium Level 8.2 mg/dL (8.5-10.1) Lactic Acid Level 1.4 mmol/L (0.4-2.0) Laboratory Tests Test 09/18/19 11:48 09/18/19 16:43 09/18/19 20:49 09/19/19 03:11 Glucose (Fingerstick) 164 mg/dL (70-99) 155 mg/dL (70-99) 172 mg/dL (70-99) White Blood Count 14.3 x10^3/uL (4.0-11.0) Red Blood Count 3.28 x10^6/uL (4.30-5.70) Hemoglobin 9.4 g/dL (13.0-17.5) Hematocrit 29.0 % (39.0-53.0) Mean Corpuscular Volume 88 fL (79-100) Mean Corpuscular Hemoglobin 29 pg (25-35) Mean Corpuscular Hemoglobin Concent 33 g/dL (31-37) Red Cell Distribution Width 18.4 % (11.5-14.5) Platelet Count 164 x10^3/uL (140-400) Neutrophils (%) (Auto) 92 % (31-73) Lymphocytes (%) (Auto) 4 % (24-48) Monocytes (%) (Auto) 3 % (0-9) Eosinophils (%) (Auto) 0 % (0-3) Basophils (%) (Auto) 1 % (0-3) Neutrophils # (Auto) 13.2 x10^3/uL (1.8-7.7) Lymphocytes # (Auto) 0.6 x10^3/uL (1.0-4.8) Monocytes # (Auto) 0.5 x10^3/uL (0.0-1.1) Eosinophils # (Auto) 0.0 x10^3/uL (0.0-0.7) Basophils # (Auto) 0.1 x10^3/uL (0.0-0.2) Sodium Level 142 mmol/L (136-145) Potassium Level 5.2 mmol/L (3.5-5.1) Chloride Level 107 mmol/L (98-107) Carbon Dioxide Level 23 mmol/L (21-32) Anion Gap 12 (6-14) Blood Urea Nitrogen 60 mg/dL (8-26) Creatinine 2.6 mg/dL (0.7-1.3) Estimated GFR (Cockcroft-Gault) 28.7 Glucose Level 178 mg/dL (70-99) Calcium Level 8.2 mg/dL (8.5-10.1) Test 09/19/19 07:13 09/19/19 07:47 Glucose (Fingerstick) 113 mg/dL (70-99) Lactic Acid Level 1.4 mmol/L (0.4-2.0) Problem List Problems Medical Problems: (1) Leukocytosis Status: Acute (2) Pressure ulcer Status: Acute (3) Unable to ambulate Status: Acute Assessment/Plan wound care continue medical management USMAN BELLE APRN Sep 19, 2019 09:20
--- NOTE | 2019-09-19 09:48 | PDOC ---
SUBJECTIVE ROS Stable , has a elaine now OBJECTIVE Vital Signs Vital Signs Date Time Temp Pulse Resp B/P (MAP) Pulse Ox O2 Delivery O2 Flow Rate FiO2 09/19/19 08:31 77 145/58 09/19/19 08:30 18 09/19/19 07:00 100.1 94 Room Air 100.1 I & 0 Intake and Output 09/19/19 06:59 Intake Total 610 ml Output Total 1220 ml Balance -610 ml Intake Oral 360 ml IV Total 250 ml Output Urine Total 1020 ml Emesis 200 ml PHYSICAL EXAM Physical Exam GENERAL: NAD HEENT OM moist , On O2 by NC NECK Supple HEART: Normal S1, S2. LUNGS: Clear. ABDOMEN: Soft, NT EXTREMITIES: Trace edema - Elaine + NEURO- Grossly Normal SKIN - no Rash DIAGNOSIS/ASSESSMENT Assessment & Plan RYAN - Vasomotor- Poor PO intake , BEE Has baseline CKD , UA unremarkable EF of 15% , Supportive care, strict I/O Monitor Renal US -Urinary retention -770 ml - has a elaine now Hyperkalemia K supplements at home and suspect 2/2 urinary retention mildly elevated. Monitor CKD-baseline Unknown Hospitalized in April with Cr 1.5 -1.7, peaked at 2.1 Renal US- Echogenic Kidneys Hypotension- On multiple BP meds as OP Currently Holding antihypertensives A fib with RVR - converted. 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 Debris within the urinary bladder evident. Impression: No hydronephrosis. Distended urinary bladder with debris within it. COMMENT/RELEVANT DATA Meds Current Medications Medications (Trade) Dose Ordered Sig/Pat Start Time Stop Time Status Last Admin Dose Admin Acetaminophen (Tylenol) 650 mg PRN Q6HRS PRN 09/19/19 08:00 09/19/19 08:19 650 MG Acetaminophen/ Hydrocodone Bitart (Lortab 5/325) 1 tab PRN Q4HRS PRN 09/18/19 08:30 09/19/19 03:34 1 TAB Amiodarone HCl (Cordarone) 200 mg DAILY 09/18/19 09:00 09/19/19 08:31 200 MG Aspirin (Rachel Aspirin) 325 mg [id number] 09/18/19 08:00 09/19/19 08:18 325 MG Atorvastatin Calcium (Lipitor) 40 mg QHS 09/17/19 21:00 09/18/19 23:33 40 MG Ceftriaxone Sodium (Rocephin) 1 gm Q24H 09/17/19 18:00 09/18/19 12:11 DC 09/17/19 17:47 1 GM Daptomycin 390 mg/ Sodium Chloride 50 ml @ 100 mls/hr Q24H 09/18/19 13:00 09/18/19 13:21 100 MLS/HR Dextrose (Dextrose 50%-Water Syringe) 12.5 gm PRN Q15MIN PRN 09/17/19 17:15 Fentanyl Citrate (Fentanyl 2ml Vial) 25 mcg PRN Q3HRS PRN 09/17/19 17:00 09/18/19 16:59 DC 09/17/19 18:31 25 MCG Fish Oil (Fish Oil) 1,000 mg DAILY 09/18/19 09:00 09/19/19 08:19 1,000 MG Insulin Glargine (Lantus Syringe) 8 unit QHS 09/17/19 21:00 09/18/19 23:44 8 UNIT Insulin Human Lispro (HumaLOG) 0-7 UNITS TIDACHC 09/17/19 21:00 09/18/19 08:30 DC 09/17/19 22:52 2 UNITS Lactobacillus Rhamnosus (Culturelle) 1 cap BID 09/18/19 21:00 09/19/19 08:18 1 CAP Linagliptin (Tradjenta) 5 mg DAILY 09/18/19 09:00 09/19/19 08:18 5 MG Lorazepam (Ativan Intensol) 2 mg PRN Q6HRS PRN 09/17/19 17:15 Meropenem 500 mg/ Sodium Chloride 50 ml @ 100 mls/hr Q12HR 09/18/19 11:30 09/19/19 08:17 100 MLS/HR Micafungin Sodium 100 mg/Dextrose 100 ml @ 100 mls/hr Q24H 09/18/19 12:00 09/18/19 11:55 100 MLS/HR Morphine Sulfate (Roxanol Conc) 4 mg PRN Q3HRS PRN 09/17/19 17:15 Multivitamins (Thera M Plus) 1 tab DAILY 09/18/19 09:00 09/19/19 08:18 1 TAB Ondansetron HCl (Zofran) 4 mg PRN Q6HRS PRN 09/18/19 08:30 Piperacillin Sod/ Tazobactam Sod (Zosyn Per Pharmacy) 1 each PRN DAILY PRN 09/17/19 17:45 UNV Sodium Chloride 1,000 ml @ 100 mls/hr Q10H 09/19/19 08:00 Tamsulosin HCl (Flomax) 0.4 mg QHS 09/17/19 21:00 09/18/19 23:33 0.4 MG Vancomycin HCl (Vanco Per Pharmacy) 1 each PRN DAILY PRN 09/18/19 10:15 09/18/19 10:08 DC Vancomycin HCl 1.25 gm/Sodium Chloride 250 ml @ 166.667 mls/hr 1X ONCE 09/17/19 18:00 09/17/19 19:29 DC 09/17/19 22:48 166.667 MLS/HR Lab Laboratory Tests Test 09/18/19 11:48 09/18/19 16:43 09/18/19 20:49 09/19/19 03:11 Glucose (Fingerstick) 164 mg/dL (70-99) 155 mg/dL (70-99) 172 mg/dL (70-99) White Blood Count 14.3 x10^3/uL (4.0-11.0) Red Blood Count 3.28 x10^6/uL (4.30-5.70) Hemoglobin 9.4 g/dL (13.0-17.5) Hematocrit 29.0 % (39.0-53.0) Mean Corpuscular Volume 88 fL (79-100) Mean Corpuscular Hemoglobin 29 pg (25-35) Mean Corpuscular Hemoglobin Concent 33 g/dL (31-37) Red Cell Distribution Width 18.4 % (11.5-14.5) Platelet Count 164 x10^3/uL (140-400) Neutrophils (%) (Auto) 92 % (31-73) Lymphocytes (%) (Auto) 4 % (24-48) Monocytes (%) (Auto) 3 % (0-9) Eosinophils (%) (Auto) 0 % (0-3) Basophils (%) (Auto) 1 % (0-3) Neutrophils # (Auto) 13.2 x10^3/uL (1.8-7.7) Lymphocytes # (Auto) 0.6 x10^3/uL (1.0-4.8) Monocytes # (Auto) 0.5 x10^3/uL (0.0-1.1) Eosinophils # (Auto) 0.0 x10^3/uL (0.0-0.7) Basophils # (Auto) 0.1 x10^3/uL (0.0-0.2) Sodium Level 142 mmol/L (136-145) Potassium Level 5.2 mmol/L (3.5-5.1) Chloride Level 107 mmol/L (98-107) Carbon Dioxide Level 23 mmol/L (21-32) Anion Gap 12 (6-14) Blood Urea Nitrogen 60 mg/dL (8-26) Creatinine 2.6 mg/dL (0.7-1.3) Estimated GFR (Cockcroft-Gault) 28.7 Glucose Level 178 mg/dL (70-99) Calcium Level 8.2 mg/dL (8.5-10.1) Test 09/19/19 07:13 09/19/19 07:47 Glucose (Fingerstick) 113 mg/dL (70-99) Lactic Acid Level 1.4 mmol/L (0.4-2.0) Results All relevant outside records, renal labs, imaging studies, telemetry/EKG's were reviewed. Other Findings: Right kidney measures 9.6 cm x 4.8 cm x 4 cm. Left kidney measures 8.9 cm x 4.4 cm x 2.8 cm. No hydronephrosis. Renal echotexture is echogenic. Renal contours are unremarkable. No renal calculi identified. Mild thinning of the right renal cortex is evident. Urinary bladder volume is 775 cc. Debris within the urinary bladder evident. Impression: No hydronephrosis. Distended urinary bladder with debris within it. MUNDO PEOPLES MD Sep 19, 2019 09:48
[2019-09-19] MEDS: IV NORMAL SALINE 1000ML BAG 1,000 ML IV SCH (09:55)
[2019-09-19] MEDS: MICAFUNGIN 100 MG in IV DEXTROSE 5% 100ML 100 ML IV SCH (11:59)
--- NOTE | 2019-09-19 12:25 | PDOC ---
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 prev hospice DNR History of Present Illness History of Present Illness called by RN low BP Temp 100. GNR bacetremia 2/2 - ID on board Looking at SNU Poor po reported to me by aide PLAn: NS 100cc for pressure support I have seen wound on chart - medical mx - GS on case, wound care/medical mx COnt IV abx per ID DNR Plans on SNu then possibly hospice - dw PAT Vitals Vitals Vital Signs Date Time Temp Pulse Resp B/P (MAP) Pulse Ox O2 Delivery O2 Flow Rate FiO2 09/19/19 10:47 100.2 81 16 103/54 (70) 96 Room Air 100.2 Physical Exam General: Alert, Oriented X3, Cooperative, No acute distress Heart: Regular rate, Normal S1, Normal S2 Lungs: Clear Abdomen: Soft, No tenderness, No hepatosplenomegaly Extremities: No clubbing, No cyanosis Skin: Other (sacral ulcer, some dusky central tissue, + odor, no drainage ) Labs LABS Laboratory Tests Test 09/18/19 16:43 09/18/19 20:49 09/19/19 03:11 09/19/19 07:13 Glucose (Fingerstick) 155 mg/dL (70-99) 172 mg/dL (70-99) 113 mg/dL (70-99) White Blood Count 14.3 x10^3/uL (4.0-11.0) Red Blood Count 3.28 x10^6/uL (4.30-5.70) Hemoglobin 9.4 g/dL (13.0-17.5) Hematocrit 29.0 % (39.0-53.0) Mean Corpuscular Volume 88 fL (79-100) Mean Corpuscular Hemoglobin 29 pg (25-35) Mean Corpuscular Hemoglobin Concent 33 g/dL (31-37) Red Cell Distribution Width 18.4 % (11.5-14.5) Platelet Count 164 x10^3/uL (140-400) Neutrophils (%) (Auto) 92 % (31-73) Lymphocytes (%) (Auto) 4 % (24-48) Monocytes (%) (Auto) 3 % (0-9) Eosinophils (%) (Auto) 0 % (0-3) Basophils (%) (Auto) 1 % (0-3) Neutrophils # (Auto) 13.2 x10^3/uL (1.8-7.7) Lymphocytes # (Auto) 0.6 x10^3/uL (1.0-4.8) Monocytes # (Auto) 0.5 x10^3/uL (0.0-1.1) Eosinophils # (Auto) 0.0 x10^3/uL (0.0-0.7) Basophils # (Auto) 0.1 x10^3/uL (0.0-0.2) Sodium Level 142 mmol/L (136-145) Potassium Level 5.2 mmol/L (3.5-5.1) Chloride Level 107 mmol/L (98-107) Carbon Dioxide Level 23 mmol/L (21-32) Anion Gap 12 (6-14) Blood Urea Nitrogen 60 mg/dL (8-26) Creatinine 2.6 mg/dL (0.7-1.3) Estimated GFR (Cockcroft-Gault) 28.7 Glucose Level 178 mg/dL (70-99) Calcium Level 8.2 mg/dL (8.5-10.1) Test 09/19/19 07:47 09/19/19 11:22 Lactic Acid Level 1.4 mmol/L (0.4-2.0) Glucose (Fingerstick) 148 mg/dL (70-99) Review of Systems Review of Systems he denies 14 pt reviewed with me Assessment and Plan Assessmemt and Plan Problems Medical Problems: (1) Leukocytosis Status: Acute (2) Pressure ulcer Status: Acute (3) Unable to ambulate Status: Acute Comment Review of Relevant I have reviewed the following items christina (where applicable) has been applied. Labs Laboratory Tests Test 09/17/19 16:40 09/17/19 20:40 09/17/19 21:42 09/18/19 00:30 White Blood Count 21.6 x10^3/uL (4.0-11.0) Red Blood Count 3.86 x10^6/uL (4.30-5.70) Hemoglobin 11.1 g/dL (13.0-17.5) Hematocrit 33.9 % (39.0-53.0) Mean Corpuscular Volume 88 fL (79-100) Mean Corpuscular Hemoglobin 29 pg (25-35) Mean Corpuscular Hemoglobin Concent 33 g/dL (31-37) Red Cell Distribution Width 18.8 % (11.5-14.5) Platelet Count 180 x10^3/uL (140-400) Neutrophils (%) (Auto) 93 % (31-73) Lymphocytes (%) (Auto) 3 % (24-48) Monocytes (%) (Auto) 3 % (0-9) Eosinophils (%) (Auto) 0 % (0-3) Basophils (%) (Auto) 0 % (0-3) Neutrophils # (Auto) 20.1 x10^3/uL (1.8-7.7) Lymphocytes # (Auto) 0.7 x10^3/uL (1.0-4.8) Monocytes # (Auto) 0.7 x10^3/uL (0.0-1.1) Eosinophils # (Auto) 0.0 x10^3/uL (0.0-0.7) Basophils # (Auto) 0.0 x10^3/uL (0.0-0.2) Segmented Neutrophils % 85 % (35-66) Band Neutrophils % 4 % (0-9) Lymphocytes % 7 % (24-48) Monocytes % 4 % (0-10) Toxic Granulation Slight Toxic Vacuolation Slight Platelet Estimate Adequate (ADEQUATE) Polychromasia Slight Anisocytosis Mod Acanthocytes Many Schistocytes Few Sodium Level 142 mmol/L (136-145) Potassium Level 5.6 mmol/L (3.5-5.1) Chloride Level 106 mmol/L (98-107) Carbon Dioxide Level 26 mmol/L (21-32) Anion Gap 10 (6-14) Blood Urea Nitrogen 62 mg/dL (8-26) Creatinine 2.8 mg/dL (0.7-1.3) Estimated GFR (Cockcroft-Gault) 26.4 Glucose Level 245 mg/dL (70-99) Lactic Acid Level 2.2 mmol/L (0.4-2.0) 1.8 mmol/L (0.4-2.0) Calcium Level 8.6 mg/dL (8.5-10.1) Glucose (Fingerstick) 228 mg/dL (70-99) Urine Collection Type Unknown Urine Color [place] Urine Clarity Cloudy Urine pH 5.5 Urine Specific [place] 1.015 Urine Protein 100 mg/dL (NEG-TRACE) Urine Glucose (UA) 100 mg/dL (NEG) Urine Ketones (Stick) Negative mg/dL (NEG) Urine Blood Large (NEG) Urine Nitrite Negative (NEG) Urine Bilirubin Small (NEG) Urine Urobilinogen Dipstick 1.0 mg/dL (0.2 mg/dL) Urine Leukocyte Esterase Negative (NEG) Urine RBC 3-5 /HPF (0-2) Urine WBC Occ /HPF (0-4) Urine Squamous Epithelial Cells Few /LPF Urine Amorphous Sediment Present /HPF Urine Bacteria 0 /HPF (0-FEW) Urine Hyaline Casts Few /HPF Urine Granular Casts Few /HPF Urine Mucus Mod /LPF Test 09/18/19 02:35 09/18/19 07:52 09/18/19 11:48 09/18/19 16:43 White Blood Count 19.3 x10^3/uL (4.0-11.0) Red Blood Count 3.34 x10^6/uL (4.30-5.70) Hemoglobin 9.6 g/dL (13.0-17.5) Hematocrit 29.3 % (39.0-53.0) Mean Corpuscular Volume 88 fL (79-100) Mean Corpuscular Hemoglobin 29 pg (25-35) Mean Corpuscular Hemoglobin Concent 33 g/dL (31-37) Red Cell Distribution Width 18.3 % (11.5-14.5) Platelet Count 152 x10^3/uL (140-400) Neutrophils (%) (Auto) 93 % (31-73) Lymphocytes (%) (Auto) 3 % (24-48) Monocytes (%) (Auto) 3 % (0-9) Eosinophils (%) (Auto) 0 % (0-3) Basophils (%) (Auto) 0 % (0-3) Neutrophils # (Auto) 18.0 x10^3/uL (1.8-7.7) Lymphocytes # (Auto) 0.6 x10^3/uL (1.0-4.8) Monocytes # (Auto) 0.6 x10^3/uL (0.0-1.1) Eosinophils # (Auto) 0.0 x10^3/uL (0.0-0.7) Basophils # (Auto) 0.1 x10^3/uL (0.0-0.2) Sodium Level 140 mmol/L (136-145) Potassium Level 5.2 mmol/L (3.5-5.1) Chloride Level 106 mmol/L (98-107) Carbon Dioxide Level 25 mmol/L (21-32) Anion Gap 9 (6-14) Blood Urea Nitrogen 59 mg/dL (8-26) Creatinine 2.5 mg/dL (0.7-1.3) Estimated GFR (Cockcroft-Gault) 30.1 BUN/Creatinine Ratio 24 (6-20) Glucose Level 237 mg/dL (70-99) Calcium Level 8.2 mg/dL (8.5-10.1) Total Bilirubin 1.9 mg/dL (0.2-1.0) Aspartate Amino Transf (AST/SGOT) 277 U/L (15-37) Alanine Aminotransferase (ALT/SGPT) 244 U/L (16-63) Alkaline Phosphatase 104 U/L (46-116) Total Protein 5.4 g/dL (6.4-8.2) Albumin 2.0 g/dL (3.4-5.0) Albumin/Globulin Ratio 0.6 (1.0-1.7) Glucose (Fingerstick) 216 mg/dL (70-99) 164 mg/dL (70-99) 155 mg/dL (70-99) Test 09/18/19 20:49 09/19/19 03:11 09/19/19 07:13 09/19/19 07:47 Glucose (Fingerstick) 172 mg/dL (70-99) 113 mg/dL (70-99) White Blood Count 14.3 x10^3/uL (4.0-11.0) Red Blood Count 3.28 x10^6/uL (4.30-5.70) Hemoglobin 9.4 g/dL (13.0-17.5) Hematocrit 29.0 % (39.0-53.0) Mean Corpuscular Volume 88 fL (79-100) Mean Corpuscular Hemoglobin 29 pg (25-35) Mean Corpuscular Hemoglobin Concent 33 g/dL (31-37) Red Cell Distribution Width 18.4 % (11.5-14.5) Platelet Count 164 x10^3/uL (140-400) Neutrophils (%) (Auto) 92 % (31-73) Lymphocytes (%) (Auto) 4 % (24-48) Monocytes (%) (Auto) 3 % (0-9) Eosinophils (%) (Auto) 0 % (0-3) Basophils (%) (Auto) 1 % (0-3) Neutrophils # (Auto) 13.2 x10^3/uL (1.8-7.7) Lymphocytes # (Auto) 0.6 x10^3/uL (1.0-4.8) Monocytes # (Auto) 0.5 x10^3/uL (0.0-1.1) Eosinophils # (Auto) 0.0 x10^3/uL (0.0-0.7) Basophils # (Auto) 0.1 x10^3/uL (0.0-0.2) Sodium Level 142 mmol/L (136-145) Potassium Level 5.2 mmol/L (3.5-5.1) Chloride Level 107 mmol/L (98-107) Carbon Dioxide Level 23 mmol/L (21-32) Anion Gap 12 (6-14) Blood Urea Nitrogen 60 mg/dL (8-26) Creatinine 2.6 mg/dL (0.7-1.3) Estimated GFR (Cockcroft-Gault) 28.7 Glucose Level 178 mg/dL (70-99) Calcium Level 8.2 mg/dL (8.5-10.1) Lactic Acid Level 1.4 mmol/L (0.4-2.0) Test 09/19/19 11:22 Glucose (Fingerstick) 148 mg/dL (70-99) Laboratory Tests Test 09/18/19 16:43 09/18/19 20:49 09/19/19 03:11 09/19/19 07:13 Glucose (Fingerstick) 155 mg/dL (70-99) 172 mg/dL (70-99) 113 mg/dL (70-99) White Blood Count 14.3 x10^3/uL (4.0-11.0) Red Blood Count 3.28 x10^6/uL (4.30-5.70) Hemoglobin 9.4 g/dL (13.0-17.5) Hematocrit 29.0 % (39.0-53.0) Mean Corpuscular Volume 88 fL (79-100) Mean Corpuscular Hemoglobin 29 pg (25-35) Mean Corpuscular Hemoglobin Concent 33 g/dL (31-37) Red Cell Distribution Width 18.4 % (11.5-14.5) Platelet Count 164 x10^3/uL (140-400) Neutrophils (%) (Auto) 92 % (31-73) Lymphocytes (%) (Auto) 4 % (24-48) Monocytes (%) (Auto) 3 % (0-9) Eosinophils (%) (Auto) 0 % (0-3) Basophils (%) (Auto) 1 % (0-3) Neutrophils # (Auto) 13.2 x10^3/uL (1.8-7.7) Lymphocytes # (Auto) 0.6 x10^3/uL (1.0-4.8) Monocytes # (Auto) 0.5 x10^3/uL (0.0-1.1) Eosinophils # (Auto) 0.0 x10^3/uL (0.0-0.7) Basophils # (Auto) 0.1 x10^3/uL (0.0-0.2) Sodium Level 142 mmol/L (136-145) Potassium Level 5.2 mmol/L (3.5-5.1) Chloride Level 107 mmol/L (98-107) Carbon Dioxide Level 23 mmol/L (21-32) Anion Gap 12 (6-14) Blood Urea Nitrogen 60 mg/dL (8-26) Creatinine 2.6 mg/dL (0.7-1.3) Estimated GFR (Cockcroft-Gault) 28.7 Glucose Level 178 mg/dL (70-99) Calcium Level 8.2 mg/dL (8.5-10.1) Test 09/19/19 07:47 09/19/19 11:22 Lactic Acid Level 1.4 mmol/L (0.4-2.0) Glucose (Fingerstick) 148 mg/dL (70-99) Microbiology 09/17/19 Blood Culture - Preliminary, Resulted NO GROWTH AFTER 1 DAY Medications Current Medications Acetaminophen/ Hydrocodone Bitart (Lortab 5/325) 1 tab 1X ONCE PO ; Start 09/17/19 at 15:45; Stop 09/17/19 at 15:46; Status DC Fentanyl Citrate (Fentanyl 2ml Vial) 25 mcg 1X ONCE IV Last administered on 09/17/19at 16:58; Start 09/17/19 at 17:00; Stop 09/17/19 at 17:01; Status DC Fentanyl Citrate (Fentanyl 2ml Vial) 25 mcg PRN Q3HRS PRN IV PAIN Last administered on 09/17/19at 18:31; Start 09/17/19 at 17:00; Stop 09/18/19 at 16:59; Status DC Sodium Chloride 500 ml @ 500 mls/hr 1X ONCE IV Last administered on 09/17/19at 17:11; Start 09/17/19 at 17:15; Stop 09/17/19 at 18:14; Status DC Amiodarone HCl (Cordarone) 200 mg DAILY PO Last administered on 09/19/19at 08:31; Start 09/18/19 at 09:00 Aspirin (Rachel Aspirin) 325 mg DAILYWBKFT PO Last administered on 09/19/19at 08:18; Start 09/18/19 at 08:00 Lorazepam (Ativan Intensol) 2 mg PRN Q6HRS PRN SL ANXIETY / AGITATION; Start 09/17/19 at 17:15 Morphine Sulfate (Roxanol Conc) 4 mg PRN Q3HRS PRN SL PAIN; Start 09/17/19 at 17:15 Tamsulosin HCl (Flomax) 0.4 mg QHS PO Last administered on 09/18/19at 23:33; Start 09/17/19 at 21:00 Atorvastatin Calcium (Lipitor) 40 mg QHS PO Last administered on 09/18/19at 23:33; Start 09/17/19 at 21:00 Multivitamins (Thera M Plus) 1 tab DAILY PO Last administered on 09/19/19at 08:18; Start 09/18/19 at 09:00 Fish Oil (Fish Oil) 1,000 mg DAILY PO Last administered on 09/19/19at 08:19; Start 09/18/19 at 09:00 Sodium Chloride 1,000 ml @ 75 mls/hr 1X ONCE IV Last administered on 09/17/19at 22:48; Start 09/17/19 at 17:15; Stop 09/18/19 at 06:34; Status DC Vancomycin HCl 1.25 gm/Sodium Chloride 250 ml @ 166.667 mls/hr 1X ONCE IV Last administered on 09/17/19at 22:48; Start 09/17/19 at 18:00; Stop 09/17/19 at 19:29; Status DC Vancomycin HCl (Vanco Per Pharmacy) 1 each PRN DAILY PRN MC SEE COMMENTS Last administered on 09/17/19at 20:19; Start 09/17/19 at 17:15; Stop 09/18/19 at 10:37; Status DC Ceftriaxone Sodium (Rocephin) 1 gm Q24H IVP Last administered on 09/17/19at 17:47; Start 09/17/19 at 18:00; Stop 09/18/19 at 12:11; Status DC Insulin Glargine (Lantus Syringe) 8 unit QHS SQ Last administered on 09/18/19at 23:44; Start 09/17/19 at 21:00 Insulin Human Lispro (HumaLOG) 0-7 UNITS TIDACHC SQ Last administered on 09/17/19at 22:52; Start 09/17/19 at 21:00; Stop 09/18/19 at 08:30; Status DC Dextrose (Dextrose 50%-Water Syringe) 12.5 gm PRN Q15MIN PRN IV SEE COMMENTS; Start 09/17/19 at 17:15 Vancomycin HCl (Vanco Per Pharmacy) 1 each PRN DAILY PRN MC SEE COMMENTS; Start 09/17/19 at 17:45; Status UNV Piperacillin Sod/ Tazobactam Sod (Zosyn Per Pharmacy) 1 each PRN DAILY PRN MC SEE COMMENTS; Start 09/17/19 at 17:45; Status UNV Acetaminophen/ Hydrocodone Bitart (Lortab 5/325) 1 tab PRN Q4HRS PRN PO PAIN Last administered on 09/19/19at 03:34; Start 09/18/19 at 08:30 Ondansetron HCl (Zofran) 4 mg PRN Q6HRS PRN IVP NAUSEA/VOMITING; Start 09/18/19 at 08:30 Acetaminophen (Tylenol) 500 mg PRN Q6HRS PRN PO MILD PAIN / TEMP; Start 09/18/19 at 08:30 Linagliptin (Tradjenta) 5 mg DAILY PO Last administered on 09/19/19at 08:18; Start 09/18/19 at 09:00 Vancomycin HCl (Vanco Per Pharmacy) 1 each PRN DAILY PRN MC SEE COMMENTS; Start 09/18/19 at 10:15; Stop 09/18/19 at 10:08; Status DC Daptomycin 390 mg/ Sodium Chloride 50 ml @ 100 mls/hr Q24H IV Last administered on 09/18/19at 13:21; Start 09/18/19 at 13:00 Micafungin Sodium 100 mg/Dextrose 100 ml @ 100 mls/hr Q24H IV Last administered on 09/19/19at 11:59; Start 09/18/19 at 12:00 Meropenem 500 mg/ Sodium Chloride 50 ml @ 100 mls/hr Q12HR IV Last administered on 09/19/19at 08:17; Start 09/18/19 at 11:30 Lactobacillus Rhamnosus (Culturelle) 1 cap BID PO Last administered on 09/19/19at 08:18; Start 09/18/19 at 21:00 Sodium Chloride 500 ml @ 500 mls/hr 1X ONCE IV Last administered on 09/19/19at 08:14; Start 09/19/19 at 08:00; Stop 09/19/19 at 08:59; Status DC Sodium Chloride 1,000 ml @ 50 mls/hr Q20H IV Last administered on 09/19/19at 09:55; Start 09/19/19 at 08:00 Acetaminophen (Tylenol) 650 mg PRN Q6HRS PRN PO FEVER Last administered on 09/19/19at 08:19; Start 09/19/19 at 08:00 Active Scripts Active Lorazepam Intensol (Lorazepam) 2 Mg/1 Ml Oral.conc 2 Mg SL PRN Q6HRS PRN 30 Days Morphine Sulfate 100 Mg/5 Ml Solution 4 Mg SL PRN Q3HRS PRN 30 Days Humalog (Insulin Lispro) 100 Unit/1 Ml Insuln.pen 0 Units SQ TIDWMEALS 30 Days For BG 151-200 - 4u 201-250 - 5u 251-300 - 7u 301-350 - 9u >351 - Call Aspirin 325 Mg Tablet 325 Mg PO DAILYWBKFT 30 Days Flomax (Tamsulosin Hcl) 0.4 Mg Cap.er.24h 0.4 Mg PO QHS 30 Days Reported Furosemide 40 Mg Tablet 40 Mg PO DAILY Amiodarone Hcl 200 Mg Tablet 200 Mg PO DAILY Centrum Silver Chewable Tablet (Folic Acid/Multivits-Min/Lut) 1 Each Tab.chew 1 Each PO DAILY08 Tradjenta (Linagliptin) 5 Mg Tablet 5 Mg PO DAILY Potassium Chloride 10 Meq Tablet.er 10 Meq PO DAILY Fish Oil 1,000 Mg Softgel ([place]-3 Fatty Acids/Fish Oil) 1 Each Capsule 1 Each PO DAILY Atorvastatin Calcium 80 Mg Tablet 40 Mg PO DAILY Vitals/I & O Vital Sign - Last 24 Hours 09/18/19 09/18/19 09/18/19 09/18/19 15:00 19:00 20:00 23:00 Temp 97.6 98.1 99.5 97.6 98.1 99.5 Pulse 80 73 74 Resp 16 16 18 B/P (MAP) 85/40 (55) 100/52 (68) 102/56 (71) Pulse Ox 94 96 94 O2 Delivery Room Air Room Air Room Air Room Air 09/19/19 09/19/19 09/19/19 09/19/19 02:16 03:34 04:34 07:00 Temp 99.3 100.1 99.3 100.1 Pulse 79 75 Resp 18 18 18 16 B/P (MAP) 118/59 (78) 89/39 (56) Pulse Ox 95 95 95 94 O2 Delivery Room Air Room Air Room Air Room Air 09/19/19 09/19/19 09/19/19 09/19/19 08:00 08:30 08:31 10:47 Temp 100.2 100.2 Pulse 77 77 81 Resp 18 16 B/P (MAP) 145/58 (87) 145/58 103/54 (70) Pulse Ox 96 O2 Delivery Room Air Room Air Intake and Output 09/18/19 09/18/19 09/19/19 15:00 23:00 07:00 Intake Total 200 ml 410 ml Output Total 1220 ml Balance 200 ml -810 ml Nutrition Consultation Dietary Evaluation: Recommendations by RD: Increase Calorie Intake, Protein supplementation Comments: diet change to mech soft, ADA, Renal nepro bid chandu bid continue mvi Expected Outcomes/Goals: to meet > 75% est nutrition needs Malnutrition Findings: Food and Nutrition Intake (Mod: <75% est energy req 7days Body Fat Depletion (Non Severe: Mild Depletion Weight Status: Underweight MARITA VELAZQUEZ MD Sep 19, 2019 12:25
--- NOTE | 2019-09-19 13:02 | PDOC2 ---
PALLIATIVE CARE Palliative Care Note Palliative Care Patient alert. Received permission to speak with Daughter Courtney Consult received from Dr. Ken Timmons to address plan of care after failing at home with hospice. Daughter unable to care for him at home. PT NOTE: Pt has been able to complete transfers to chair and commode at home and would benefit from SNU to address limitations in strength, balance, safety, activity tolerance and coordination to maximize functional indep. Pt reports that he would like to be able to walk short distances again. Spoke with daughter Courtney. Reviewed Medical condition; Sacral Ulcer Courtney would like for patient to go to [facility] for PT/OT then Assisted Care. Understands patient is responsible for room and board after therapy. Second choice would be [facility]. patient has signed out of Hospice. Courtney stated she has signed Out of Hospital DNR Form that she will bring in today. Above reviewed with Dr. Trejo and SHAHNAZ Kent Sep 19, 2019 13:02
--- NOTE | 2019-09-19 14:03 | NUR ---
GWEN following pt. Pt's family is interested in going to [facility] for SNU and possibly transition to LTC placement. DC train planner will fax referral to [facility]. Jonathan from [facility] will come to visit pt today. Will continue to follow.
[2019-09-19] MEDS: DAPTOmycin (GENERIC) IVPB 390 MG in IV NORMAL SALINE 50ML 50 ML IV SCH (14:13)
[2019-09-19] MEDS: ATORVASTATIN CALCIUM 40 MG TABLET. PO SCH (21:19)
[2019-09-19] MEDS: TAMSULOSIN 0.4 MG CAP.ER.24H. PO SCH (21:20)
[2019-09-19] MEDS: INSULIN GLARGINE SYRINGE. SQ SCH (21:48)
[2019-09-20] MEDS: IV NORMAL SALINE 1000ML BAG 1,000 ML IV SCH (02:00)
[2019-09-20 03:00] VITALS: BP 102/57
[2019-09-20 04:58] LABS: CALCIUM 7.8 mg/dL (8.5-10.1); CREATININE 2.6 mg/dL (0.7-1.3); GFR 28.7; POTASSIUM 4.4 mmol/L (3.5-5.1)
[2019-09-20 04:59] LABS: BASO % 0 % (0-3); EOS # 0.1 x10^3/uL (0.0-0.7); EOS % 1 % (0-3); HEMATOCRIT 29.1 % (39.0-53.0); HEMOGLOBIN 9.4 g/dL (13.0-17.5); LYMPH # 0.5 x10^3/uL (1.0-4.8); LYMPH % 5 % (24-48); MEAN CORPUSCULAR HEMOGLOBIN 29 pg (25-35); MEAN CORPUSCULAR HGB CONC 32 g/dL (31-37); MEAN CORPUSCULAR VOLUME 88 fL (79-100); MONO # 0.6 x10^3/uL (0.0-1.1); MONO % 5 % (0-9); NEUT # 9.9 x10^3/uL (1.8-7.7); NEUT % 89 % (31-73); PLATELET COUNT 172 x10^3/uL (140-400); RED BLOOD COUNT 3.29 x10^6/uL (4.30-5.70); RED CELL DISTRIBUTION WIDTH 18.2 % (11.5-14.5); WHITE BLOOD COUNT 11.2 x10^3/uL (4.0-11.0)
[2019-09-20 07:00] VITALS: BP 98/58
[2019-09-20] MEDS: ASPIRIN 325 MG TABLET PO SCH (09:06)
[2019-09-20] MEDS: MEROPENEM 500 MG in IV NORMAL SALINE 50ML 50 ML IV SCH ×2 (09:06→21:27)
[2019-09-20] MEDS: MULTIVITAMIN with MINERAL TABLET. PO SCH (09:07)
[2019-09-20] MEDS: AMIODARONE HCL 200 MG TABLET. PO SCH (09:07)
[2019-09-20] MEDS: LACTOBACILLUS RHAMNOSUS GG 1 CAPSULE. PO SCH ×2 (09:07→21:27)
[2019-09-20] MEDS: OMEGA-3 FATTY ACIDS/FISH OIL 1,000 MG CAPSULE. PO SCH (09:07)
[2019-09-20] MEDS: LINAGLIPTIN 5 MG TABLET PO SCH (09:07)
--- NOTE | 2019-09-20 09:31 | PDOC ---
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 prev hospice DNR History of Present Illness History of Present Illness GPC bacteremia ID and sensitivities still pending He has no complaints Aide feeding him SNU in the works No overnight calls LAst BM wednesday PLAn: Awaiting GPC identificn and sensitivities BOwel regimen, be on top of Turn q2 DNR SNU on dc prev hospice - palliative note reviewed Outside dnr signed by Dr Carcamo Vitals Vitals Vital Signs Date Time Temp Pulse Resp B/P (MAP) Pulse Ox O2 Delivery O2 Flow Rate FiO2 09/20/19 09:07 114 98/58 09/20/19 07:00 99.2 16 100 Room Air 99.2 Physical Exam General: Alert, Oriented X3, Cooperative, No acute distress Heart: Regular rate, Normal S1, Normal S2 Lungs: Clear Abdomen: Soft, No tenderness, No hepatosplenomegaly Extremities: No clubbing, No cyanosis Skin: Other (sacral ulcer, some dusky central tissue, + odor, no drainage ) Labs LABS Laboratory Tests Test 09/19/19 11:22 09/19/19 16:47 09/19/19 21:11 09/20/19 03:40 Glucose (Fingerstick) 148 mg/dL (70-99) 166 mg/dL (70-99) 180 mg/dL (70-99) White Blood Count 11.2 x10^3/uL (4.0-11.0) Red Blood Count 3.29 x10^6/uL (4.30-5.70) Hemoglobin 9.4 g/dL (13.0-17.5) Hematocrit 29.1 % (39.0-53.0) Mean Corpuscular Volume 88 fL (79-100) Mean Corpuscular Hemoglobin 29 pg (25-35) Mean Corpuscular Hemoglobin Concent 32 g/dL (31-37) Red Cell Distribution Width 18.2 % (11.5-14.5) Platelet Count 172 x10^3/uL (140-400) Neutrophils (%) (Auto) 89 % (31-73) Lymphocytes (%) (Auto) 5 % (24-48) Monocytes (%) (Auto) 5 % (0-9) Eosinophils (%) (Auto) 1 % (0-3) Basophils (%) (Auto) 0 % (0-3) Neutrophils # (Auto) 9.9 x10^3/uL (1.8-7.7) Lymphocytes # (Auto) 0.5 x10^3/uL (1.0-4.8) Monocytes # (Auto) 0.6 x10^3/uL (0.0-1.1) Eosinophils # (Auto) 0.1 x10^3/uL (0.0-0.7) Basophils # (Auto) 0.0 x10^3/uL (0.0-0.2) Sodium Level 142 mmol/L (136-145) Potassium Level 4.4 mmol/L (3.5-5.1) Chloride Level 110 mmol/L (98-107) Carbon Dioxide Level 24 mmol/L (21-32) Anion Gap 8 (6-14) Blood Urea Nitrogen 59 mg/dL (8-26) Creatinine 2.6 mg/dL (0.7-1.3) Estimated GFR (Cockcroft-Gault) 28.7 Glucose Level 136 mg/dL (70-99) Calcium Level 7.8 mg/dL (8.5-10.1) Test 09/20/19 07:23 Glucose (Fingerstick) 71 mg/dL (70-99) Review of Systems Review of Systems denies 14 pt reviewed with him Assessment and Plan Assessmemt and Plan Problems Medical Problems: (1) Leukocytosis Status: Acute (2) Pressure ulcer Status: Acute (3) Unable to ambulate Status: Acute Comment Review of Relevant I have reviewed the following items christina (where applicable) has been applied. Labs Laboratory Tests Test 09/18/19 11:48 09/18/19 16:43 09/18/19 20:49 09/19/19 03:11 Glucose (Fingerstick) 164 mg/dL (70-99) 155 mg/dL (70-99) 172 mg/dL (70-99) White Blood Count 14.3 x10^3/uL (4.0-11.0) Red Blood Count 3.28 x10^6/uL (4.30-5.70) Hemoglobin 9.4 g/dL (13.0-17.5) Hematocrit 29.0 % (39.0-53.0) Mean Corpuscular Volume 88 fL (79-100) Mean Corpuscular Hemoglobin 29 pg (25-35) Mean Corpuscular Hemoglobin Concent 33 g/dL (31-37) Red Cell Distribution Width 18.4 % (11.5-14.5) Platelet Count 164 x10^3/uL (140-400) Neutrophils (%) (Auto) 92 % (31-73) Lymphocytes (%) (Auto) 4 % (24-48) Monocytes (%) (Auto) 3 % (0-9) Eosinophils (%) (Auto) 0 % (0-3) Basophils (%) (Auto) 1 % (0-3) Neutrophils # (Auto) 13.2 x10^3/uL (1.8-7.7) Lymphocytes # (Auto) 0.6 x10^3/uL (1.0-4.8) Monocytes # (Auto) 0.5 x10^3/uL (0.0-1.1) Eosinophils # (Auto) 0.0 x10^3/uL (0.0-0.7) Basophils # (Auto) 0.1 x10^3/uL (0.0-0.2) Sodium Level 142 mmol/L (136-145) Potassium Level 5.2 mmol/L (3.5-5.1) Chloride Level 107 mmol/L (98-107) Carbon Dioxide Level 23 mmol/L (21-32) Anion Gap 12 (6-14) Blood Urea Nitrogen 60 mg/dL (8-26) Creatinine 2.6 mg/dL (0.7-1.3) Estimated GFR (Cockcroft-Gault) 28.7 Glucose Level 178 mg/dL (70-99) Calcium Level 8.2 mg/dL (8.5-10.1) Test 09/19/19 07:13 09/19/19 07:47 09/19/19 11:22 09/19/19 16:47 Glucose (Fingerstick) 113 mg/dL (70-99) 148 mg/dL (70-99) 166 mg/dL (70-99) Lactic Acid Level 1.4 mmol/L (0.4-2.0) Test 09/19/19 21:11 09/20/19 03:40 09/20/19 07:23 Glucose (Fingerstick) 180 mg/dL (70-99) 71 mg/dL (70-99) White Blood Count 11.2 x10^3/uL (4.0-11.0) Red Blood Count 3.29 x10^6/uL (4.30-5.70) Hemoglobin 9.4 g/dL (13.0-17.5) Hematocrit 29.1 % (39.0-53.0) Mean Corpuscular Volume 88 fL (79-100) Mean Corpuscular Hemoglobin 29 pg (25-35) Mean Corpuscular Hemoglobin Concent 32 g/dL (31-37) Red Cell Distribution Width 18.2 % (11.5-14.5) Platelet Count 172 x10^3/uL (140-400) Neutrophils (%) (Auto) 89 % (31-73) Lymphocytes (%) (Auto) 5 % (24-48) Monocytes (%) (Auto) 5 % (0-9) Eosinophils (%) (Auto) 1 % (0-3) Basophils (%) (Auto) 0 % (0-3) Neutrophils # (Auto) 9.9 x10^3/uL (1.8-7.7) Lymphocytes # (Auto) 0.5 x10^3/uL (1.0-4.8) Monocytes # (Auto) 0.6 x10^3/uL (0.0-1.1) Eosinophils # (Auto) 0.1 x10^3/uL (0.0-0.7) Basophils # (Auto) 0.0 x10^3/uL (0.0-0.2) Sodium Level 142 mmol/L (136-145) Potassium Level 4.4 mmol/L (3.5-5.1) Chloride Level 110 mmol/L (98-107) Carbon Dioxide Level 24 mmol/L (21-32) Anion Gap 8 (6-14) Blood Urea Nitrogen 59 mg/dL (8-26) Creatinine 2.6 mg/dL (0.7-1.3) Estimated GFR (Cockcroft-Gault) 28.7 Glucose Level 136 mg/dL (70-99) Calcium Level 7.8 mg/dL (8.5-10.1) Laboratory Tests Test 09/19/19 11:22 09/19/19 16:47 09/19/19 21:11 09/20/19 03:40 Glucose (Fingerstick) 148 mg/dL (70-99) 166 mg/dL (70-99) 180 mg/dL (70-99) White Blood Count 11.2 x10^3/uL (4.0-11.0) Red Blood Count 3.29 x10^6/uL (4.30-5.70) Hemoglobin 9.4 g/dL (13.0-17.5) Hematocrit 29.1 % (39.0-53.0) Mean Corpuscular Volume 88 fL (79-100) Mean Corpuscular Hemoglobin 29 pg (25-35) Mean Corpuscular Hemoglobin Concent 32 g/dL (31-37) Red Cell Distribution Width 18.2 % (11.5-14.5) Platelet Count 172 x10^3/uL (140-400) Neutrophils (%) (Auto) 89 % (31-73) Lymphocytes (%) (Auto) 5 % (24-48) Monocytes (%) (Auto) 5 % (0-9) Eosinophils (%) (Auto) 1 % (0-3) Basophils (%) (Auto) 0 % (0-3) Neutrophils # (Auto) 9.9 x10^3/uL (1.8-7.7) Lymphocytes # (Auto) 0.5 x10^3/uL (1.0-4.8) Monocytes # (Auto) 0.6 x10^3/uL (0.0-1.1) Eosinophils # (Auto) 0.1 x10^3/uL (0.0-0.7) Basophils # (Auto) 0.0 x10^3/uL (0.0-0.2) Sodium Level 142 mmol/L (136-145) Potassium Level 4.4 mmol/L (3.5-5.1) Chloride Level 110 mmol/L (98-107) Carbon Dioxide Level 24 mmol/L (21-32) Anion Gap 8 (6-14) Blood Urea Nitrogen 59 mg/dL (8-26) Creatinine 2.6 mg/dL (0.7-1.3) Estimated GFR (Cockcroft-Gault) 28.7 Glucose Level 136 mg/dL (70-99) Calcium Level 7.8 mg/dL (8.5-10.1) Test 09/20/19 07:23 Glucose (Fingerstick) 71 mg/dL (70-99) Microbiology 09/17/19 Blood Culture - Preliminary, Resulted NO GROWTH AFTER 2 DAYS Medications Current Medications Acetaminophen/ Hydrocodone Bitart (Lortab 5/325) 1 tab 1X ONCE PO ; Start 09/17/19 at 15:45; Stop 09/17/19 at 15:46; Status DC Fentanyl Citrate (Fentanyl 2ml Vial) 25 mcg 1X ONCE IV Last administered on 09/17/19at 16:58; Start 09/17/19 at 17:00; Stop 09/17/19 at 17:01; Status DC Fentanyl Citrate (Fentanyl 2ml Vial) 25 mcg PRN Q3HRS PRN IV PAIN Last administered on 09/17/19at 18:31; Start 09/17/19 at 17:00; Stop 09/18/19 at 16:59; Status DC Sodium Chloride 500 ml @ 500 mls/hr 1X ONCE IV Last administered on 09/17/19at 17:11; Start 09/17/19 at 17:15; Stop 09/17/19 at 18:14; Status DC Amiodarone HCl (Cordarone) 200 mg DAILY PO Last administered on 09/20/19at 09:07; Start 09/18/19 at 09:00 Aspirin (Rachel Aspirin) 325 mg DAILYWBKFT PO Last administered on 09/20/19at 09:06; Start 09/18/19 at 08:00 Lorazepam (Ativan Intensol) 2 mg PRN Q6HRS PRN SL ANXIETY / AGITATION; Start 09/17/19 at 17:15 Morphine Sulfate (Roxanol Conc) 4 mg PRN Q3HRS PRN SL SEVERE PAIN; Start 09/17/19 at 17:15 Tamsulosin HCl (Flomax) 0.4 mg QHS PO Last administered on 09/19/19 21:20; Start 09/17/19 at 21:00 Atorvastatin Calcium (Lipitor) 40 mg QHS PO Last administered on 09/19/19at 21:19; Start 09/17/19 at 21:00 Multivitamins (Thera M Plus) 1 tab DAILY PO Last administered on 09/20/19 09:07; Start 09/18/19 at 09:00 Fish Oil (Fish Oil) 1,000 mg DAILY PO Last administered on 09/20/19 09:07; Start 09/18/19 at 09:00 Sodium Chloride 1,000 ml @ 75 mls/hr 1X ONCE IV Last administered on 09/17/19at 22:48; Start 09/17/19 at 17:15; Stop 09/18/19 at 06:34; Status DC Vancomycin HCl 1.25 gm/Sodium Chloride 250 ml @ 166.667 mls/hr 1X ONCE IV Las t administered on 09/17/19at 22:48; Start 09/17/19 at 18:00; Stop 09/17/19 at 19:29; Status DC Vancomycin HCl (Vanco Per Pharmacy) 1 each PRN DAILY PRN MC SEE COMMENTS Last administered on 09/17/19at 20:19; Start 09/17/19 at 17:15; Stop 09/18/19 at 1 0:37; Status DC Ceftriaxone Sodium (Rocephin) 1 gm Q24H IVP Last administered on 09/17/19at 17:47; Start 09/17/19 at 18:00; Stop 09/18/19 at 12:11; Status DC Insulin Glargine (Lantus Syringe) 8 unit QHS SQ Last administered on 09/19/19at 21:48; Start 09/17/19 at 21:00 Insulin Human Lispro (HumaLOG) 0-7 UNITS TIDACHC SQ Last administered on 09/17/19at 22:52; Start 09/17/19 at 21:00; Stop 09/18/19 at 08:30; Status DC Dextrose (Dextrose 50%-Water Syringe) 12.5 gm PRN Q15MIN PRN IV SEE COMMENTS; Start 09/17/19 at 17:15 Vancomycin HCl (Vanco Per Pharmacy) 1 each PRN DAILY PRN MC SEE COMMENTS; Start 09/17/19 at 17:45; Status UNV Piperacillin Sod/ Tazobactam Sod (Zosyn Per Pharmacy) 1 each PRN DAILY PRN MC SEE COMMENTS; Start 09/17/19 at 17:45; Status UNV Acetaminophen/ Hydrocodone Bitart (Lortab 5/325) 1 tab PRN Q4HRS PRN PO MODERATE PAIN Last administered on 09/19/19at 03:34; Start 09/18/19 at 08:30 Ondansetron HCl (Zofran) 4 mg PRN Q6HRS PRN IVP NAUSEA/VOMITING; Start 09/18/19 at 08:30 Acetaminophen (Tylenol) 500 mg PRN Q6HRS PRN PO MILD PAIN / TEMP; Start 09/18/19 at 08:30 Linagliptin (Tradjenta) 5 mg DAILY PO Last administered on 09/20/19at 09:07; Start 09/18/19 at 09:00 Vancomycin HCl (Vanco Per Pharmacy) 1 each PRN DAILY PRN MC SEE COMMENTS; Start 09/18/19 at 10:15; Stop 09/18/19 at 10:08; Status DC Daptomycin 390 mg/ Sodium Chloride 50 ml @ 100 mls/hr Q24H IV Last administered on 09/19/19at 14:13; Start 09/18/19 at 13:00 Micafungin Sodium 100 mg/Dextrose 100 ml @ 100 mls/hr Q24H IV Last administered on 09/19/19at 11:59; Start 09/18/19 at 12:00 Meropenem 500 mg/ Sodium Chloride 50 ml @ 100 mls/hr Q12HR IV Last administered on 09/20/19at 09:06; Start 09/18/19 at 11:30 Lactobacillus Rhamnosus (Culturelle) 1 cap BID PO Last administered on 09/20/19at 09:07; Start 09/18/19 at 21:00 Sodium Chloride 500 ml @ 500 mls/hr 1X ONCE IV Last administered on 09/19/19at 08:14; Start 09/19/19 at 08:00; Stop 09/19/19 at 08:59; Status DC Sodium Chloride 1,000 ml @ 50 mls/hr Q20H IV Last administered on 09/20/19at 02:00; Start 09/19/19 at 08:00 Acetaminophen (Tylenol) 650 mg PRN Q6HRS PRN PO FEVER Last administered on 09/19/19at 08:19; Start 09/19/19 at 08:00 Active Scripts Active Lorazepam Intensol (Lorazepam) 2 Mg/1 Ml Oral.conc 2 Mg SL PRN Q6HRS PRN 30 Days Morphine Sulfate 100 Mg/5 Ml Solution 4 Mg SL PRN Q3HRS PRN 30 Days Humalog (Insulin Lispro) 100 Unit/1 Ml Insuln.pen 0 Units SQ TIDWMEALS 30 Days For BG 151-200 - 4u 201-250 - 5u 251-300 - 7u 301-350 - 9u >351 - Call Aspirin 325 Mg Tablet 325 Mg PO DAILYWBKFT 30 Days Flomax (Tamsulosin Hcl) 0.4 Mg Cap.er.24h 0.4 Mg PO QHS 30 Days Reported Furosemide 40 Mg Tablet 40 Mg PO DAILY Amiodarone Hcl 200 Mg Tablet 200 Mg PO DAILY Centrum Silver Chewable Tablet (Folic Acid/Multivits-Min/Lut) 1 Each Tab.chew 1 Each PO DAILY08 Tradjenta (Linagliptin) 5 Mg Tablet 5 Mg PO DAILY Potassium Chloride 10 Meq Tablet.er 10 Meq PO DAILY Fish Oil 1,000 Mg Softgel (Essie-3 Fatty Acids/Fish Oil) 1 Each Capsule 1 Each PO DAILY Atorvastatin Calcium 80 Mg Tablet 40 Mg PO DAILY Vitals/I & O Vital Sign - Last 24 Hours 09/19/19 09/19/19 09/19/19 09/19/19 10:47 15:00 19:00 19:30 Temp 100.2 98.9 97.6 100.2 98.9 97.6 Pulse 81 64 66 Resp 16 16 18 B/P (MAP) 103/54 (70) 90/50 (63) 97/48 (64) Pulse Ox 96 94 90 O2 Delivery Room Air Room Air Room Air Room Air 09/19/19 09/20/19 09/20/19 09/20/19 23:00 03:00 07:00 09:07 Temp 98.9 98.1 99.2 98.9 98.1 99.2 Pulse 111 113 114 114 Resp 18 18 16 B/P (MAP) 128/73 (91) 102/57 (72) 98/58 (71) 98/58 Pulse Ox 95 95 100 O2 Delivery Room Air Room Air Room Air Intake and Output 09/19/19 09/19/19 09/20/19 15:00 23:00 07:00 Intake Total 600 ml Output Total 350 ml 425 ml Balance 600 ml -350 ml -425 ml Nutrition Consultation Dietary Evaluation: Recommendations by RD: Increase Calorie Intake, Protein supplementation Comments: diet change to mech soft, ADA, Renal nepro bid chandu bid continue mvi Expected Outcomes/Goals: to meet > 75% est nutrition needs Malnutrition Findings: Food and Nutrition Intake (Mod: <75% est energy req 7days Body Fat Depletion (Non Severe: Mild Depletion Weight Status: Underweight MARITA VELAZQUEZ MD Sep 20, 2019 09:31
--- NOTE | 2019-09-20 09:40 | PDOC ---
Infectious Disease Note Subjective: Subjective Pt says feels better Fever pattern is improving denies any n/v/d/abdo pain/sob d/w rn ROS: ROS Negative otherwise. Vital Signs: Vital Signs Vital Signs Date Time Temp Pulse Resp B/P (MAP) Pulse Ox O2 Delivery O2 Flow Rate FiO2 09/20/19 09:07 114 98/58 09/20/19 07:00 99.2 16 100 Room Air 99.2 Medications: Inpatient Meds: Current Medications Medications (Trade) Dose Ordered Sig/Pat Start Time Stop Time Status Last Admin Dose Admin Acetaminophen (Tylenol) 650 mg PRN Q6HRS PRN 09/19/19 08:00 09/19/19 08:19 Acetaminophen/ Hydrocodone Bitart (Lortab 5/325) 1 tab PRN Q4HRS PRN 09/18/19 08:30 09/19/19 03:34 Amiodarone HCl (Cordarone) 200 mg DAILY 09/18/19 09:00 09/20/19 09:07 Aspirin (Rachel Aspirin) 325 mg DAILYWBKFT 09/18/19 08:00 09/20/19 09:06 Atorvastatin Calcium (Lipitor) 40 mg QHS 09/17/19 21:00 09/19/19 21:19 Ceftriaxone Sodium (Rocephin) 1 gm Q24H 09/17/19 18:00 09/18/19 12:11 DC 09/17/19 17:47 Daptomycin 390 mg/ Sodium Chloride 50 ml @ 100 mls/hr Q24H 09/18/19 13:00 09/19/19 14:13 Dextrose (Dextrose 50%-Water Syringe) 12.5 gm PRN Q15MIN PRN 09/17/19 17:15 Fentanyl Citrate (Fentanyl 2ml Vial) 25 mcg PRN Q3HRS PRN 09/17/19 17:00 09/18/19 16:59 DC 09/17/19 18:31 Fish Oil (Fish Oil) 1,000 mg DAILY 09/18/19 09:00 09/20/19 09:07 Insulin Glargine (Lantus Syringe) 8 unit QHS 09/17/19 21:00 09/19/19 21:48 Insulin Human Lispro (HumaLOG) 0-7 UNITS TIDACHC 09/17/19 21:00 09/18/19 08:30 DC 09/17/19 22:52 Lactobacillus Rhamnosus (Culturelle) 1 cap BID 09/18/19 21:00 09/20/19 09:07 Linagliptin (Tradjenta) 5 mg DAILY 09/18/19 09:00 09/20/19 09:07 Lorazepam (Ativan Intensol) 2 mg PRN Q6HRS PRN 09/17/19 17:15 Meropenem 500 mg/ Sodium Chloride 50 ml @ 100 mls/hr Q12HR 09/18/19 11:30 09/20/19 09:06 Micafungin Sodium 100 mg/Dextrose 100 ml @ 100 mls/hr Q24H 09/18/19 12:00 09/19/19 11:59 Morphine Sulfate (Roxanol Conc) 4 mg PRN Q3HRS PRN 09/17/19 17:15 Multivitamins (Thera M Plus) 1 tab DAILY 09/18/19 09:00 09/20/19 09:07 Ondansetron HCl (Zofran) 4 mg PRN Q6HRS PRN 09/18/19 08:30 Piperacillin Sod/ Tazobactam Sod (Zosyn Per Pharmacy) 1 each PRN DAILY PRN 09/17/19 17:45 UNV Sodium Chloride 1,000 ml @ 50 mls/hr Q20H 09/19/19 08:00 09/20/19 02:00 Tamsulosin HCl (Flomax) 0.4 mg QHS 09/17/19 21:00 09/19/19 21:20 Vancomycin HCl (Vanco Per Pharmacy) 1 each PRN DAILY PRN 09/18/19 10:15 09/18/19 10:08 DC Vancomycin HCl 1.25 gm/Sodium Chloride 250 ml @ 166.667 mls/hr 1X ONCE 09/17/19 18:00 09/17/19 19:29 DC 09/17/19 22:48 Labs: Lab Laboratory Tests Test 09/19/19 11:22 09/19/19 16:47 09/19/19 21:11 09/20/19 03:40 Glucose (Fingerstick) 148 mg/dL (70-99) 166 mg/dL (70-99) 180 mg/dL (70-99) White Blood Count 11.2 x10^3/uL (4.0-11.0) Red Blood Count 3.29 x10^6/uL (4.30-5.70) Hemoglobin 9.4 g/dL (13.0-17.5) Hematocrit 29.1 % (39.0-53.0) Mean Corpuscular Volume 88 fL (79-100) Mean Corpuscular Hemoglobin 29 pg (25-35) Mean Corpuscular Hemoglobin Concent 32 g/dL (31-37) Red Cell Distribution Width 18.2 % (11.5-14.5) Platelet Count 172 x10^3/uL (140-400) Neutrophils (%) (Auto) 89 % (31-73) Lymphocytes (%) (Auto) 5 % (24-48) Monocytes (%) (Auto) 5 % (0-9) Eosinophils (%) (Auto) 1 % (0-3) Basophils (%) (Auto) 0 % (0-3) Neutrophils # (Auto) 9.9 x10^3/uL (1.8-7.7) Lymphocytes # (Auto) 0.5 x10^3/uL (1.0-4.8) Monocytes # (Auto) 0.6 x10^3/uL (0.0-1.1) Eosinophils # (Auto) 0.1 x10^3/uL (0.0-0.7) Basophils # (Auto) 0.0 x10^3/uL (0.0-0.2) Sodium Level 142 mmol/L (136-145) Potassium Level 4.4 mmol/L (3.5-5.1) Chloride Level 110 mmol/L (98-107) Carbon Dioxide Level 24 mmol/L (21-32) Anion Gap 8 (6-14) Blood Urea Nitrogen 59 mg/dL (8-26) Creatinine 2.6 mg/dL (0.7-1.3) Estimated GFR (Cockcroft-Gault) 28.7 Glucose Level 136 mg/dL (70-99) Calcium Level 7.8 mg/dL (8.5-10.1) Test 09/20/19 07:23 Glucose (Fingerstick) 71 mg/dL (70-99) Objective: Assessment: 1. Fever.source large infected decubitus necrotic wound 2. Leukocytosis. 3. Bacteremia 2 /4 bottles with GPCs in clusters. ID and PREET pending. Source likely infected sacral wound. 4. Infected sacral wound with surrounding cellulitis. 5. Chronic kidney disease. 6. Atrial fibrillation. 7. History of benign prostatic hypertrophy with hematuria and inability to place Downing. 8. Generalized anasarca. 9. Generalized debility. 10. Dysphagia 11. PCM Plan: Plan of Care Cont Daptomycin, meropenem and micafungin. Dose of daptomycin and meropenem may need to be adjusted per renal function. gen surgery following Palliative care following pt f/u blood cultures Follow up GPC in blood cultures. Continue local wound care. Continue supportive care. Continue offload. Prognosis very poor. Discussed with RN. DAYSI HENRIQUEZ MD Sep 20, 2019 09:40
--- NOTE | 2019-09-20 09:48 | PDOC ---
SURGICAL PROGRESS NOTE Subjective resting reviewed notes Vital Signs Vital Signs Date Time Temp Pulse Resp B/P (MAP) Pulse Ox O2 Delivery O2 Flow Rate FiO2 09/20/19 09:07 114 98/58 09/20/19 07:00 99.2 16 100 Room Air 99.2 I&O Intake and Output 09/20/19 07:00 Intake Total 600 ml Output Total 775 ml Balance -175 ml Intake Oral 600 ml Output Urine Total 775 ml General: Cooperative Abdomen: Soft Labs Laboratory Tests Test 09/18/19 11:48 09/18/19 16:43 09/18/19 20:49 09/19/19 03:11 Glucose (Fingerstick) 164 mg/dL (70-99) 155 mg/dL (70-99) 172 mg/dL (70-99) White Blood Count 14.3 x10^3/uL (4.0-11.0) Red Blood Count 3.28 x10^6/uL (4.30-5.70) Hemoglobin 9.4 g/dL (13.0-17.5) Hematocrit 29.0 % (39.0-53.0) Mean Corpuscular Volume 88 fL (79-100) Mean Corpuscular Hemoglobin 29 pg (25-35) Mean Corpuscular Hemoglobin Concent 33 g/dL (31-37) Red Cell Distribution Width 18.4 % (11.5-14.5) Platelet Count 164 x10^3/uL (140-400) Neutrophils (%) (Auto) 92 % (31-73) Lymphocytes (%) (Auto) 4 % (24-48) Monocytes (%) (Auto) 3 % (0-9) Eosinophils (%) (Auto) 0 % (0-3) Basophils (%) (Auto) 1 % (0-3) Neutrophils # (Auto) 13.2 x10^3/uL (1.8-7.7) Lymphocytes # (Auto) 0.6 x10^3/uL (1.0-4.8) Monocytes # (Auto) 0.5 x10^3/uL (0.0-1.1) Eosinophils # (Auto) 0.0 x10^3/uL (0.0-0.7) Basophils # (Auto) 0.1 x10^3/uL (0.0-0.2) Sodium Level 142 mmol/L (136-145) Potassium Level 5.2 mmol/L (3.5-5.1) Chloride Level 107 mmol/L (98-107) Carbon Dioxide Level 23 mmol/L (21-32) Anion Gap 12 (6-14) Blood Urea Nitrogen 60 mg/dL (8-26) Creatinine 2.6 mg/dL (0.7-1.3) Estimated GFR (Cockcroft-Gault) 28.7 Glucose Level 178 mg/dL (70-99) Calcium Level 8.2 mg/dL (8.5-10.1) Test 09/19/19 07:13 09/19/19 07:47 09/19/19 11:22 09/19/19 16:47 Glucose (Fingerstick) 113 mg/dL (70-99) 148 mg/dL (70-99) 166 mg/dL (70-99) Lactic Acid Level 1.4 mmol/L (0.4-2.0) Test 09/19/19 21:11 09/20/19 03:40 09/20/19 07:23 Glucose (Fingerstick) 180 mg/dL (70-99) 71 mg/dL (70-99) White Blood Count 11.2 x10^3/uL (4.0-11.0) Red Blood Count 3.29 x10^6/uL (4.30-5.70) Hemoglobin 9.4 g/dL (13.0-17.5) Hematocrit 29.1 % (39.0-53.0) Mean Corpuscular Volume 88 fL (79-100) Mean Corpuscular Hemoglobin 29 pg (25-35) Mean Corpuscular Hemoglobin Concent 32 g/dL (31-37) Red Cell Distribution Width 18.2 % (11.5-14.5) Platelet Count 172 x10^3/uL (140-400) Neutrophils (%) (Auto) 89 % (31-73) Lymphocytes (%) (Auto) 5 % (24-48) Monocytes (%) (Auto) 5 % (0-9) Eosinophils (%) (Auto) 1 % (0-3) Basophils (%) (Auto) 0 % (0-3) Neutrophils # (Auto) 9.9 x10^3/uL (1.8-7.7) Lymphocytes # (Auto) 0.5 x10^3/uL (1.0-4.8) Monocytes # (Auto) 0.6 x10^3/uL (0.0-1.1) Eosinophils # (Auto) 0.1 x10^3/uL (0.0-0.7) Basophils # (Auto) 0.0 x10^3/uL (0.0-0.2) Sodium Level 142 mmol/L (136-145) Potassium Level 4.4 mmol/L (3.5-5.1) Chloride Level 110 mmol/L (98-107) Carbon Dioxide Level 24 mmol/L (21-32) Anion Gap 8 (6-14) Blood Urea Nitrogen 59 mg/dL (8-26) Creatinine 2.6 mg/dL (0.7-1.3) Estimated GFR (Cockcroft-Gault) 28.7 Glucose Level 136 mg/dL (70-99) Calcium Level 7.8 mg/dL (8.5-10.1) Laboratory Tests Test 09/19/19 11:22 09/19/19 16:47 09/19/19 21:11 09/20/19 03:40 Glucose (Fingerstick) 148 mg/dL (70-99) 166 mg/dL (70-99) 180 mg/dL (70-99) White Blood Count 11.2 x10^3/uL (4.0-11.0) Red Blood Count 3.29 x10^6/uL (4.30-5.70) Hemoglobin 9.4 g/dL (13.0-17.5) Hematocrit 29.1 % (39.0-53.0) Mean Corpuscular Volume 88 fL (79-100) Mean Corpuscular Hemoglobin 29 pg (25-35) Mean Corpuscular Hemoglobin Concent 32 g/dL (31-37) Red Cell Distribution Width 18.2 % (11.5-14.5) Platelet Count 172 x10^3/uL (140-400) Neutrophils (%) (Auto) 89 % (31-73) Lymphocytes (%) (Auto) 5 % (24-48) Monocytes (%) (Auto) 5 % (0-9) Eosinophils (%) (Auto) 1 % (0-3) Basophils (%) (Auto) 0 % (0-3) Neutrophils # (Auto) 9.9 x10^3/uL (1.8-7.7) Lymphocytes # (Auto) 0.5 x10^3/uL (1.0-4.8) Monocytes # (Auto) 0.6 x10^3/uL (0.0-1.1) Eosinophils # (Auto) 0.1 x10^3/uL (0.0-0.7) Basophils # (Auto) 0.0 x10^3/uL (0.0-0.2) Sodium Level 142 mmol/L (136-145) Potassium Level 4.4 mmol/L (3.5-5.1) Chloride Level 110 mmol/L (98-107) Carbon Dioxide Level 24 mmol/L (21-32) Anion Gap 8 (6-14) Blood Urea Nitrogen 59 mg/dL (8-26) Creatinine 2.6 mg/dL (0.7-1.3) Estimated GFR (Cockcroft-Gault) 28.7 Glucose Level 136 mg/dL (70-99) Calcium Level 7.8 mg/dL (8.5-10.1) Test 09/20/19 07:23 Glucose (Fingerstick) 71 mg/dL (70-99) Problem List Problems Medical Problems: (1) Leukocytosis Status: Acute (2) Pressure ulcer Status: Acute (3) Unable to ambulate Status: Acute Assessment/Plan wound care medical management USMAN BELLE APRN Sep 20, 2019 09:48
--- NOTE | 2019-09-20 09:53 | PDOC ---
SUBJECTIVE ROS Stable , had urinary retention at presentation , elaine placed OBJECTIVE Vital Signs Vital Signs Date Time Temp Pulse Resp B/P (MAP) Pulse Ox O2 Delivery O2 Flow Rate FiO2 09/20/19 09:07 114 98/58 09/20/19 07:00 99.2 16 100 Room Air 99.2 I & 0 Intake and Output 09/20/19 07:00 Intake Total 600 ml Output Total 775 ml Balance -175 ml Intake Oral 600 ml Output Urine Total 775 ml PHYSICAL EXAM Physical Exam GENERAL: NAD HEENT OM moist , On O2 by NC NECK Supple HEART: Normal S1, S2. LUNGS: Clear. ABDOMEN: Soft, NT EXTREMITIES: Trace edema - Elaine + NEURO- Grossly Normal S DIAGNOSIS/ASSESSMENT Assessment & Plan RYAN - Vasomotor- Poor PO intake , BEE Has baseline CKD , UA unremarkable EF of 15% , Supportive care, strict I/O Monitor Renal US -Urinary retention -770 ml - has a elaine now Hyperkalemia K supplements at home and suspect 2/2 urinary retention Resolved CKD-baseline Unknown Hospitalized in April with Cr 1.5 -1.7, peaked at 2.1 Renal US- Echogenic Kidneys Hypotension- On multiple BP meds as OP Currently Holding antihypertensives A fib with RVR - converted. 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 Debris within the urinary bladder evident. Distended urinary bladder with debris within it. COMMENT/RELEVANT DATA Meds Current Medications Medications (Trade) Dose Ordered Sig/Pat Start Time Stop Time Status Last Admin Dose Admin Acetaminophen (Tylenol) 650 mg PRN Q6HRS PRN 09/19/19 08:00 09/19/19 08:19 650 MG Acetaminophen/ Hydrocodone Bitart (Lortab 5/325) 1 tab PRN Q4HRS PRN 09/18/19 08:30 09/19/19 03:34 1 TAB Amiodarone HCl (Cordarone) 200 mg DAILY 09/18/19 09:00 09/20/19 09:07 200 MG Aspirin (Rachel Aspirin) 325 mg DAILYWBKFT 09/18/19 08:00 09/20/19 09:06 325 MG Atorvastatin Calcium (Lipitor) 40 mg QHS 09/17/19 21:00 09/19/19 21:19 40 MG Ceftriaxone Sodium (Rocephin) 1 gm Q24H 09/17/19 18:00 09/18/19 12:11 DC 09/17/19 17:47 1 GM Daptomycin 390 mg/ Sodium Chloride 50 ml @ 100 mls/hr Q24H 09/18/19 13:00 09/19/19 14:13 100 MLS/HR Dextrose (Dextrose 50%-Water Syringe) 12.5 gm PRN Q15MIN PRN 09/17/19 17:15 Fentanyl Citrate (Fentanyl 2ml Vial) 25 mcg PRN Q3HRS PRN 09/17/19 17:00 09/18/19 16:59 DC 09/17/19 18:31 25 MCG Fish Oil (Fish Oil) 1,000 mg DAILY 09/18/19 09:00 09/20/19 09:07 1,000 MG Insulin Glargine (Lantus Syringe) 8 unit QHS 09/17/19 21:00 09/19/19 21:48 8 UNIT Insulin Human Lispro (HumaLOG) 0-7 UNITS TIDACHC 09/17/19 21:00 09/18/19 08:30 DC 09/17/19 22:52 2 UNITS Lactobacillus Rhamnosus (Culturelle) 1 cap BID 09/18/19 21:00 09/20/19 09:07 1 CAP Linagliptin (Tradjenta) 5 mg DAILY 09/18/19 09:00 09/20/19 09:07 5 MG Lorazepam (Ativan Intensol) 2 mg PRN Q6HRS PRN 09/17/19 17:15 Meropenem 500 mg/ Sodium Chloride 50 ml @ 100 mls/hr Q12HR 09/18/19 11:30 09/20/19 09:06 100 MLS/HR Micafungin Sodium 100 mg/Dextrose 100 ml @ 100 mls/hr Q24H 09/18/19 12:00 09/19/19 11:59 100 MLS/HR Morphine Sulfate (Roxanol Conc) 4 mg PRN Q3HRS PRN 09/17/19 17:15 Multivitamins (Thera M Plus) 1 tab DAILY 09/18/19 09:00 09/20/19 09:07 1 TAB Ondansetron HCl (Zofran) 4 mg PRN Q6HRS PRN 09/18/19 08:30 Piperacillin Sod/ Tazobactam Sod (Zosyn Per Pharmacy) 1 each PRN DAILY PRN 09/17/19 17:45 UNV Sodium Chloride 1,000 ml @ 50 mls/hr Q20H 09/19/19 08:00 09/20/19 02:00 50 MLS/HR Tamsulosin HCl (Flomax) 0.4 mg QHS 09/17/19 21:00 09/19/19 21:20 0.4 MG Vancomycin HCl (Vanco Per Pharmacy) 1 each PRN DAILY PRN 09/18/19 10:15 09/18/19 10:08 DC Vancomycin HCl 1.25 gm/Sodium Chloride 250 ml @ 166.667 mls/hr 1X ONCE 09/17/19 18:00 09/17/19 19:29 DC 09/17/19 22:48 166.667 MLS/HR Lab Laboratory Tests Test 09/19/19 11:22 09/19/19 16:47 09/19/19 21:11 09/20/19 03:40 Glucose (Fingerstick) 148 mg/dL (70-99) 166 mg/dL (70-99) 180 mg/dL (70-99) White Blood Count 11.2 x10^3/uL (4.0-11.0) Red Blood Count 3.29 x10^6/uL (4.30-5.70) Hemoglobin 9.4 g/dL (13.0-17.5) Hematocrit 29.1 % (39.0-53.0) Mean Corpuscular Volume 88 fL (79-100) Mean Corpuscular Hemoglobin 29 pg (25-35) Mean Corpuscular Hemoglobin Concent 32 g/dL (31-37) Red Cell Distribution Width 18.2 % (11.5-14.5) Platelet Count 172 x10^3/uL (140-400) Neutrophils (%) (Auto) 89 % (31-73) Lymphocytes (%) (Auto) 5 % (24-48) Monocytes (%) (Auto) 5 % (0-9) Eosinophils (%) (Auto) 1 % (0-3) Basophils (%) (Auto) 0 % (0-3) Neutrophils # (Auto) 9.9 x10^3/uL (1.8-7.7) Lymphocytes # (Auto) 0.5 x10^3/uL (1.0-4.8) Monocytes # (Auto) 0.6 x10^3/uL (0.0-1.1) Eosinophils # (Auto) 0.1 x10^3/uL (0.0-0.7) Basophils # (Auto) 0.0 x10^3/uL (0.0-0.2) Sodium Level 142 mmol/L (136-145) Potassium Level 4.4 mmol/L (3.5-5.1) Chloride Level 110 mmol/L (98-107) Carbon Dioxide Level 24 mmol/L (21-32) Anion Gap 8 (6-14) Blood Urea Nitrogen 59 mg/dL (8-26) Creatinine 2.6 mg/dL (0.7-1.3) Estimated GFR (Cockcroft-Gault) 28.7 Glucose Level 136 mg/dL (70-99) Calcium Level 7.8 mg/dL (8.5-10.1) Test 09/20/19 07:23 Glucose (Fingerstick) 71 mg/dL (70-99) Results All relevant outside records, renal labs, imaging studies, telemetry/EKG's were reviewed. MUNDO PEOPLES MD Sep 20, 2019 09:53
--- NOTE | 2019-09-20 10:00 | NUR ---
Wound Care: Wound care follow up on multiple wounds. Coccyx wound cleansed and honey alginate and foam applied. L heel and R lateral foot dressings reinforced. R back with stage I PU, wound cleanse, measured and pictured, skin prep applied. No other wounds noted upon assessment. Pt left turned to his right with call light within reach. Wound care will follow up on 09/22
--- NOTE | 2019-09-20 10:10 | NUR ---
SW following pt. Pt has been accepted at [facility] for SNU and transition to LTC. CM spoke with Radha at [facility] and Pt is traditional medicare until next month and they will not need to give auth. Awaiting on sensitivities, pt not ready to dc today. SW discussed this with Jonathan at [facility]. Discussed with Physician and health safety coordinator. SW will continue to follow pt.
[2019-09-20 11:00] VITALS: BP 90/46
--- NOTE | 2019-09-20 11:50 | PDOC ---
SUBJECTIVE ROS Stable , had urinary retention at presentation , elaine placed OBJECTIVE Vital Signs Vital Signs Date Time Temp Pulse Resp B/P (MAP) Pulse Ox O2 Delivery O2 Flow Rate FiO2 09/20/19 09:07 114 98/58 09/20/19 07:00 99.2 16 100 Room Air 99.2 I & 0 Intake and Output 09/20/19 07:00 Intake Total 600 ml Output Total 775 ml Balance -175 ml Intake Oral 600 ml Output Urine Total 775 ml PHYSICAL EXAM Physical Exam GENERAL: NAD HEENT OM moist , On O2 by NC NECK Supple HEART: Normal S1, S2. LUNGS: Clear. ABDOMEN: Soft, NT EXTREMITIES: Trace edema - Elaine + NEURO- Grossly Normal DIAGNOSIS/ASSESSMENT Assessment & Plan RYAN - Vasomotor- Poor PO intake , BEE Has baseline CKD , UA unremarkable , renal function improved since presentation- not at baseline EF of 15% , Supportive care, strict I/O Monitor Renal US -Urinary retention -770 ml - has a elaine now Hyperkalemia K supplements at home and suspect 2/2 urinary retention Resolved CKD-baseline Unknown Hospitalized in April with Cr 1.5 -1.7, peaked at 2.1 Renal US- Echogenic Kidneys Hypotension- On multiple BP meds as OP Currently Holding antihypertensives A fib with RVR - converted. 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 Debris within the urinary bladder evident.Distended urinary bladder with debris within it. COMMENT/RELEVANT DATA Meds Current Medications Medications (Trade) Dose Ordered Sig/Pat Start Time Stop Time Status Last Admin Dose Admin Acetaminophen (Tylenol) 650 mg PRN Q6HRS PRN 09/19/19 08:00 09/19/19 08:19 650 MG Acetaminophen/ Hydrocodone Bitart (Lortab 5/325) 1 tab PRN Q4HRS PRN 09/18/19 08:30 09/19/19 03:34 1 TAB Amiodarone HCl (Cordarone) 200 mg DAILY 09/18/19 09:00 09/20/19 09:07 200 MG Aspirin (Rachel Aspirin) 325 mg DAILYWBKFT 09/18/19 08:00 09/20/19 09:06 325 MG Atorvastatin Calcium (Lipitor) 40 mg QHS 09/17/19 21:00 09/19/19 21:19 40 MG Ceftriaxone Sodium (Rocephin) 1 gm Q24H 09/17/19 18:00 09/18/19 12:11 DC 09/17/19 17:47 1 GM Daptomycin 390 mg/ Sodium Chloride 50 ml @ 100 mls/hr Q24H 09/18/19 13:00 09/19/19 14:13 100 MLS/HR Dextrose (Dextrose 50%-Water Syringe) 12.5 gm PRN Q15MIN PRN 09/17/19 17:15 Fentanyl Citrate (Fentanyl 2ml Vial) 25 mcg PRN Q3HRS PRN 09/17/19 17:00 09/18/19 16:59 DC 09/17/19 18:31 25 MCG Fish Oil (Fish Oil) 1,000 mg DAILY 09/18/19 09:00 09/20/19 09:07 1,000 MG Insulin Glargine (Lantus Syringe) 8 unit QHS 09/17/19 21:00 09/19/19 21:48 8 UNIT Insulin Human Lispro (HumaLOG) 0-7 UNITS TIDACHC 09/17/19 21:00 09/18/19 08:30 DC 09/17/19 22:52 2 UNITS Lactobacillus Rhamnosus (Culturelle) 1 cap BID 09/18/19 21:00 09/20/19 09:07 1 CAP Linagliptin (Tradjenta) 5 mg DAILY 09/18/19 09:00 09/20/19 09:07 5 MG Lorazepam (Ativan Intensol) 2 mg PRN Q6HRS PRN 09/17/19 17:15 Meropenem 500 mg/ Sodium Chloride 50 ml @ 100 mls/hr Q12HR 09/18/19 11:30 09/20/19 09:06 100 MLS/HR Micafungin Sodium 100 mg/Dextrose 100 ml @ 100 mls/hr Q24H 09/18/19 12:00 09/19/19 11:59 100 MLS/HR Morphine Sulfate (Roxanol Conc) 4 mg PRN Q3HRS PRN 09/17/19 17:15 Multivitamins (Thera M Plus) 1 tab DAILY 09/18/19 09:00 09/20/19 09:07 1 TAB Ondansetron HCl (Zofran) 4 mg PRN Q6HRS PRN 09/18/19 08:30 Piperacillin Sod/ Tazobactam Sod (Zosyn Per Pharmacy) 1 each PRN DAILY PRN 09/17/19 17:45 UNV Sodium Chloride 1,000 ml @ 50 mls/hr Q20H 09/19/19 08:00 09/20/19 02:00 50 MLS/HR Tamsulosin HCl (Flomax) 0.4 mg QHS 09/17/19 21:00 09/19/19 21:20 0.4 MG Vancomycin HCl (Vanco Per Pharmacy) 1 each PRN DAILY PRN 09/18/19 10:15 09/18/19 10:08 DC Vancomycin HCl 1.25 gm/Sodium Chloride 250 ml @ 166.667 mls/hr 1X ONCE 09/17/19 18:00 09/17/19 19:29 DC 09/17/19 22:48 166.667 MLS/HR Lab Laboratory Tests Test 09/19/19 16:47 09/19/19 21:11 09/20/19 03:40 09/20/19 07:23 Glucose (Fingerstick) 166 mg/dL (70-99) 180 mg/dL (70-99) 71 mg/dL (70-99) White Blood Count 11.2 x10^3/uL (4.0-11.0) Red Blood Count 3.29 x10^6/uL (4.30-5.70) Hemoglobin 9.4 g/dL (13.0-17.5) Hematocrit 29.1 % (39.0-53.0) Mean Corpuscular Volume 88 fL (79-100) Mean Corpuscular Hemoglobin 29 pg (25-35) Mean Corpuscular Hemoglobin Concent 32 g/dL (31-37) Red Cell Distribution Width 18.2 % (11.5-14.5) Platelet Count 172 x10^3/uL (140-400) Neutrophils (%) (Auto) 89 % (31-73) Lymphocytes (%) (Auto) 5 % (24-48) Monocytes (%) (Auto) 5 % (0-9) Eosinophils (%) (Auto) 1 % (0-3) Basophils (%) (Auto) 0 % (0-3) Neutrophils # (Auto) 9.9 x10^3/uL (1.8-7.7) Lymphocytes # (Auto) 0.5 x10^3/uL (1.0-4.8) Monocytes # (Auto) 0.6 x10^3/uL (0.0-1.1) Eosinophils # (Auto) 0.1 x10^3/uL (0.0-0.7) Basophils # (Auto) 0.0 x10^3/uL (0.0-0.2) Sodium Level 142 mmol/L (136-145) Potassium Level 4.4 mmol/L (3.5-5.1) Chloride Level 110 mmol/L (98-107) Carbon Dioxide Level 24 mmol/L (21-32) Anion Gap 8 (6-14) Blood Urea Nitrogen 59 mg/dL (8-26) Creatinine 2.6 mg/dL (0.7-1.3) Estimated GFR (Cockcroft-Gault) 28.7 Glucose Level 136 mg/dL (70-99) Calcium Level 7.8 mg/dL (8.5-10.1) Results All relevant outside records, renal labs, imaging studies, telemetry/EKG's were reviewed. MUNDO PEOPLES MD Sep 20, 2019 11:50
[2019-09-20] MEDS: MICAFUNGIN 100 MG in IV DEXTROSE 5% 100ML 100 ML IV SCH (13:36)
--- NOTE | 2019-09-20 14:01 | PDOC2 ---
PALLIATIVE CARE Palliative Care Note Palliative [facility] Patient alert. Received permission to speak to daughter Leny. Spoke with Leny. She has not spoke with Courtney regarding discharge plans. Leny visited with patient last evening. Spoke with Courtney. Wants to know the cost of [facility] vs [facility] for intermediate care. Understands patient will likely go to rehab facility for strengthening then [facility] with [facility]ice. Understands patient is not a candidate for wound debridement. Spoke with Jim HIDALGO who will return call to Courtney regarding cost comparison of nursing homes. [phone] Attempted to reach Leny at [phone] to update. Message to return call. SHAHNAZ RIVAS Sep 20, 2019 14:01
[2019-09-20] MEDS: DAPTOmycin (GENERIC) IVPB 390 MG in IV NORMAL SALINE 50ML 50 ML IV SCH (14:52)
[2019-09-20 15:00] VITALS: BP 92/44
[2019-09-20 19:00] VITALS: BP 111/57
[2019-09-20] MEDS: TAMSULOSIN 0.4 MG CAP.ER.24H. PO SCH (21:27)
[2019-09-20] MEDS: ATORVASTATIN CALCIUM 40 MG TABLET. PO SCH (21:27)
[2019-09-20] MEDS: INSULIN GLARGINE SYRINGE. SQ SCH (21:34)
[2019-09-20 23:00] VITALS: BP 110/58
[2019-09-21] MEDS: IV NORMAL SALINE 1000ML BAG 1,000 ML IV SCH ×2 (01:00→21:13)
[2019-09-21 03:00] VITALS: BP 92/41
[2019-09-21 05:28] LABS: CALCIUM 7.7 mg/dL (8.5-10.1); CREATININE 2.4 mg/dL (0.7-1.3); GFR 31.5; POTASSIUM 4.8 mmol/L (3.5-5.1)
[2019-09-21 07:00] VITALS: BP 111/55
[2019-09-21] MEDS ORDERED: MORP100S3 SL (07:28)
[2019-09-21] MEDS ORDERED: LORA2ORA7 SL (07:28)
[2019-09-21] MEDS ORDERED: HYDR-2761 PO (07:28)
--- NOTE | 2019-09-21 07:29 | SNU/HH DC ---
DISCHARGE ORDERS DISCHARGE INFORMATION: DISCHARGE DATE: Sep 21, 2019 FINAL DIAGNOSIS Problems Medical Problems: (1) Leukocytosis Status: Acute (2) Pressure ulcer Status: Acute (3) Unable to ambulate Status: Acute CONDITION ON DISCHARGE: Stable CODE STATUS: Code Status: DNR/DNI SHELTER: SNF STAY <30 DAYS: Yes HOSPICE: HOSPICE: No HOSPICE EVAL & TREAT: No LTAC: ADMIT TO LTAC: No POST DISCHARGE ORDERS: ACTIVITY ORDERS: Activity as tolerated WEIGHT BEARING STATUS: No restrictions, As tolerated DIET AFTER DISCHARGE: ADA OTHER WOUND INSTRUCTIONS: turn q2, local wound care CHECKS AFTER DISCHARGE: CHECKS AFTER DISCHARGE: Check blood press - daily, Check blood sugar, ac/hs, Check your Temp as needed FOLLOW-UP: PHYSICIAN FOLLOW-UP: prev hospice, might be interested in it again TREATMENT/EQUIPMENT ORDERS: RESPIRATORY EQUIPMENT NEEDED: Oxygen Physical Therapy For: Evalulation/Treatment Occupational Therapy For: Evaluation/Treatment Speech Language Pathology For: Evaluation/Treatment DISCHARGE MEDICATIONS: Home Meds Active Scripts Lorazepam (LORAZEPAM INTENSOL) 2 Mg/1 Ml Oral.conc, 2 MG SL PRN Q6HRS PRN for ANXIETY / AGITATION for 10 Days, MISC Prov:MARITA VELAZQUEZ MD 09/21/19 Hydrocodone Bit/Acetaminophen (HYDROCODONE-APAP 5-325 ) 1 Tab Tablet, 1 TAB PO PRN Q4HRS PRN for MODERATE PAIN, #20 TAB Prov:MARITA VELAZQUEZ MD 09/21/19 Morphine Sulfate (MORPHINE SULFATE) 100 Mg/5 Ml Solution, 4 MG SL PRN Q3HRS PRN for PAIN for 10 Days, MISC Prov:MARITA VELAZQUEZ MD 09/21/19 Insulin Lispro (HUMALOG) 100 Unit/1 Ml Insuln.pen, 0 UNITS SQ TIDWMEALS for DM2 for 30 Days, #1 EACH For BG 151-200 - 4u 201-250 - 5u 251-300 - 7u 301-350 - 9u >351 - Call Prov:RITIKA COLLADO MD 05/24/19 Aspirin (ASPIRIN) 325 Mg Tablet, 325 MG PO DAILYWBKFT for CAD for 30 Days, #30 TAB Prov:RITIKA COLLADO MD 05/24/19 Tamsulosin Hcl (FLOMAX) 0.4 Mg Cap.er.24h, 0.4 MG PO QHS for BPH for 30 Days, #30 CAP.SR Prov:RITIKA COLLADO MD 05/24/19 Reported Medications Furosemide (FUROSEMIDE) 40 Mg Tablet, 40 MG PO DAILY for CHF, TAB 07/03/19 Amiodarone Hcl (AMIODARONE HCL) 200 Mg Tablet, 200 MG PO DAILY for arrythmia, TAB 07/03/19 Folic Acid/Multivits-Min/Lut (CENTRUM SILVER CHEWABLE TABLET) 1 Each Tab.chew, 1 EACH PO DAILY08 for other, TAB.CHEW 06/06/19 Linagliptin (TRADJENTA) 5 Mg Tablet, 5 MG PO DAILY for TYPE 2 DIABETES, TAB 06/06/19 Potassium Chloride (POTASSIUM CHLORIDE) 10 Meq Tablet.er, 10 MEQ PO DAILY for other, TAB 06/06/19 [place]-3 Fatty Acids/Fish Oil (FISH OIL 1,000 MG SOFTGEL) 1 Each Capsule, 1 EACH PO DAILY for other, CAP 05/17/19 Atorvastatin Calcium (Atorvastatin Calcium) 80 Mg Tablet, 40 MG PO DAILY for other, TAB 05/17/19 Discontinued Scripts Lorazepam (LORAZEPAM INTENSOL) 2 Mg/1 Ml Oral.conc, 2 MG SL PRN Q6HRS PRN for ANXIETY / AGITATION for 30 Days, #1 MISC Prov:RITIKA COLLADO MD 07/03/19 MARITA VELAZQUEZ MD Sep 21, 2019 07:29
[2019-09-21] MEDS: LACTOBACILLUS RHAMNOSUS GG 1 CAPSULE. PO SCH ×2 (09:12→21:18)
[2019-09-21] MEDS: ASPIRIN 325 MG TABLET PO SCH (09:12)
[2019-09-21] MEDS: OMEGA-3 FATTY ACIDS/FISH OIL 1,000 MG CAPSULE. PO SCH (09:12)
[2019-09-21] MEDS: AMIODARONE HCL 200 MG TABLET. PO SCH (09:12)
[2019-09-21] MEDS: LINAGLIPTIN 5 MG TABLET PO SCH (09:12)
[2019-09-21] MEDS: MULTIVITAMIN with MINERAL TABLET. PO SCH (09:12)
[2019-09-21] MEDS: MEROPENEM 500 MG in IV NORMAL SALINE 50ML 50 ML IV SCH ×2 (09:13→21:13)
--- NOTE | 2019-09-21 09:21 | PDOC ---
Infectious Disease Note Subjective: Subjective Pt says feels better denies any n/v/d/abdo pain/sob d/w rn ROS: ROS Negative otherwise. Vital Signs: Vital Signs Vital Signs Date Time Temp Pulse Resp B/P (MAP) Pulse Ox O2 Delivery O2 Flow Rate FiO2 09/21/19 09:12 109 111/55 09/21/19 07:00 99.2 16 96 Room Air 99.2 Medications: Inpatient Meds: Current Medications Medications (Trade) Dose Ordered Sig/Pat Start Time Stop Time Status Last Admin Dose Admin Acetaminophen (Tylenol) 650 mg PRN Q6HRS PRN 09/19/19 08:00 09/19/19 08:19 650 MG Acetaminophen/ Hydrocodone Bitart (Lortab 5/325) 1 tab PRN Q4HRS PRN 09/18/19 08:30 09/19/19 03:34 1 TAB Amiodarone HCl (Cordarone) 200 mg DAILY 09/18/19 09:00 09/21/19 09:12 200 MG Aspirin (Rachel Aspirin) 325 mg DAILYWBKFT 09/18/19 08:00 09/21/19 09:12 325 MG Atorvastatin Calcium (Lipitor) 40 mg QHS 09/17/19 21:00 09/20/19 21:27 40 MG Ceftriaxone Sodium (Rocephin) 1 gm Q24H 09/17/19 18:00 09/18/19 12:11 DC 09/17/19 17:47 1 GM Daptomycin 390 mg/ Sodium Chloride 50 ml @ 100 mls/hr Q24H 09/18/19 13:00 09/20/19 14:52 100 MLS/HR Dextrose (Dextrose 50%-Water Syringe) 12.5 gm PRN Q15MIN PRN 09/17/19 17:15 Fentanyl Citrate (Fentanyl 2ml Vial) 25 mcg PRN Q3HRS PRN 09/17/19 17:00 09/18/19 16:59 DC 09/17/19 18:31 25 MCG Fish Oil (Fish Oil) 1,000 mg DAILY 09/18/19 09:00 09/21/19 09:12 1,000 MG Insulin Glargine (Lantus Syringe) 8 unit QHS 09/17/19 21:00 09/20/19 21:34 8 UNIT Insulin Human Lispro (HumaLOG) 0-7 UNITS TIDACHC 09/17/19 21:00 09/18/19 08:30 DC 09/17/19 22:52 2 UNITS Lactobacillus Rhamnosus (Culturelle) 1 cap BID 09/18/19 21:00 09/21/19 09:12 1 CAP Linagliptin (Tradjenta) 5 mg DAILY 09/18/19 09:00 09/21/19 09:12 5 MG Lorazepam (Ativan Intensol) 2 mg PRN Q6HRS PRN 09/17/19 17:15 Meropenem 500 mg/ Sodium Chloride 50 ml @ 100 mls/hr Q12HR 09/18/19 11:30 09/21/19 09:13 100 MLS/HR Micafungin Sodium 100 mg/Dextrose 100 ml @ 100 mls/hr Q24H 09/18/19 12:00 09/20/19 13:36 100 MLS/HR Morphine Sulfate (Roxanol Conc) 4 mg PRN Q3HRS PRN 09/17/19 17:15 Multivitamins (Thera M Plus) 1 tab DAILY 09/18/19 09:00 09/21/19 09:12 1 TAB Ondansetron HCl (Zofran) 4 mg PRN Q6HRS PRN 09/18/19 08:30 Piperacillin Sod/ Tazobactam Sod (Zosyn Per Pharmacy) 1 each PRN DAILY PRN 09/17/19 17:45 UNV Sodium Chloride 1,000 ml @ 50 mls/hr Q20H 09/19/19 08:00 09/21/19 01:00 50 MLS/HR Tamsulosin HCl (Flomax) 0.4 mg QHS 09/17/19 21:00 09/20/19 21:27 0.4 MG Vancomycin HCl (Vanco Per Pharmacy) 1 each PRN DAILY PRN 09/18/19 10:15 09/18/19 10:08 DC Vancomycin HCl 1.25 gm/Sodium Chloride 250 ml @ 166.667 mls/hr 1X ONCE 09/17/19 18:00 09/17/19 19:29 DC 09/17/19 22:48 166.667 MLS/HR Labs: Lab Laboratory Tests Test 09/20/19 11:41 09/20/19 16:31 09/20/19 20:18 09/21/19 04:10 Glucose (Fingerstick) 100 mg/dL (70-99) 143 mg/dL (70-99) 162 mg/dL (70-99) Sodium Level 140 mmol/L (136-145) Potassium Level 4.8 mmol/L (3.5-5.1) Chloride Level 108 mmol/L (98-107) Carbon Dioxide Level 23 mmol/L (21-32) Anion Gap 9 (6-14) Blood Urea Nitrogen 67 mg/dL (8-26) Creatinine 2.4 mg/dL (0.7-1.3) Estimated GFR (Cockcroft-Gault) 31.5 Glucose Level 180 mg/dL (70-99) Calcium Level 7.7 mg/dL (8.5-10.1) Test 09/21/19 07:58 Glucose (Fingerstick) 149 mg/dL (70-99) Objective: Assessment: 1. Fever.source large infected decubitus necrotic wound 2. Leukocytosis. 3. Bacteremia 2 /4 bottles with GPCs in clusters. ID and PREET pending. Source likely infected sacral wound. 4. Infected sacral wound with surrounding cellulitis. 5. Chronic kidney disease. 6. Atrial fibrillation. 7. History of benign prostatic hypertrophy with hematuria and inability to place [place]. 8. Generalized anasarca. 9. Generalized debility. 10. Dysphagia 11. PCM Plan: Plan of Care Cont Daptomycin, meropenem and micafungin. Dose of daptomycin and meropenem may need to be adjusted per renal function. gen surgery following Palliative care following pt f/u blood cultures Follow up GPC in blood cultures. Continue local wound care. Continue supportive care. Continue offload. Prognosis very poor. Discussed with RN. DAYSI HENRIQUEZ MD Sep 21, 2019 09:21
--- NOTE | 2019-09-21 09:56 | PDOC ---
SUBJECTIVE ROS Stable OBJECTIVE Vital Signs Vital Signs Date Time Temp Pulse Resp B/P (MAP) Pulse Ox O2 Delivery O2 Flow Rate FiO2 09/21/19 09:12 109 111/55 09/21/19 07:00 99.2 16 96 Room Air 99.2 I & 0 Intake and Output 09/21/19 07:00 Intake Total 350 ml Output Total 950 ml Balance -600 ml Intake Oral 150 ml IV Total 200 ml Output Urine Total 950 ml PHYSICAL EXAM Physical Exam GENERAL: NAD HEENT OM moist , On O2 by NC NECK Supple HEART: Normal S1, S2. LUNGS: Clear. ABDOMEN: Soft, NT EXTREMITIES: Trace edema - Elaine + NEURO- Grossly Normal S DIAGNOSIS/ASSESSMENT Assessment & Plan RYAN - Vasomotor- Poor PO intake , BEE Has baseline CKD , UA unremarkable EF of 15% , Supportive care, strict I/O Monitor Renal US -Urinary retention -770 ml - has a elaine now If inadequate uop with elaine in place, please flush it and/or bladder scan Hyperkalemia K supplements at home and suspect 2/2 urinary retention Resolved CKD-baseline Unknown Hospitalized in April with Cr 1.5 -1.7, peaked at 2.1 Renal US- Echogenic Kidneys Hypotension- On multiple BP meds as OP Currently Holding antihypertensives A fib with RVR - converted. Now in hospice Acute on chronic systolic CHF- stable, compensated ischemic cardiomyopathy with low EF 15% Recd Lasix IV per cardiology CAD, s/p CABG Severe benign prostatic hypertrophy- US in April no e/o BEE , Elaine again this admission- placed with difficulty Recommend Urology consult DM - per primary Sacral decubitus ulcer - with foul-smell, ID consulted Leukocytosis Falls at home recurrently - now bedbound failure to thrive - nutrition to see CAD s/p CABG in 1999 - stable Hypertension - have backed off meds in hospice Severe ischemic cardiomyopathy with an EF of 15% - History of renal stones Urinary bladder volume is 775 cc. Debris within the urinary bladder evident. Distended urinary bladder with debris within it. COMMENT/RELEVANT DATA Meds Current Medications Medications (Trade) Dose Ordered Sig/Pat Start Time Stop Time Status Last Admin Dose Admin Acetaminophen (Tylenol) 650 mg PRN Q6HRS PRN 09/19/19 08:00 09/19/19 08:19 650 MG Acetaminophen/ Hydrocodone Bitart (Lortab 5/325) 1 tab PRN Q4HRS PRN 09/18/19 08:30 09/19/19 03:34 1 TAB Amiodarone HCl (Cordarone) 200 mg DAILY 09/18/19 09:00 09/21/19 09:12 200 MG Aspirin (Rachel Aspirin) 325 mg DAILYWBKFT 09/18/19 08:00 09/21/19 09:12 325 MG Atorvastatin Calcium (Lipitor) 40 mg QHS 09/17/19 21:00 09/20/19 21:27 40 MG Ceftriaxone Sodium (Rocephin) 1 gm Q24H 09/17/19 18:00 09/18/19 12:11 DC 09/17/19 17:47 1 GM Daptomycin 390 mg/ Sodium Chloride 50 ml @ 100 mls/hr Q24H 09/18/19 13:00 09/20/19 14:52 100 MLS/HR Dextrose (Dextrose 50%-Water Syringe) 12.5 gm PRN Q15MIN PRN 09/17/19 17:15 Fentanyl Citrate (Fentanyl 2ml Vial) 25 mcg PRN Q3HRS PRN 09/17/19 17:00 09/18/19 16:59 DC 09/17/19 18:31 25 MCG Fish Oil (Fish Oil) 1,000 mg DAILY 09/18/19 09:00 09/21/19 09:12 1,000 MG Insulin Glargine (Lantus Syringe) 8 unit QHS 09/17/19 21:00 09/20/19 21:34 8 UNIT Insulin Human Lispro (HumaLOG) 0-7 UNITS TIDACHC 09/17/19 21:00 09/18/19 08:30 DC 09/17/19 22:52 2 UNITS Lactobacillus Rhamnosus (Culturelle) 1 cap BID 09/18/19 21:00 09/21/19 09:12 1 CAP Linagliptin (Tradjenta) 5 mg DAILY 09/18/19 09:00 09/21/19 09:12 5 MG Lorazepam (Ativan Intensol) 2 mg PRN Q6HRS PRN 09/17/19 17:15 Meropenem 500 mg/ Sodium Chloride 50 ml @ 100 mls/hr Q12HR 09/18/19 11:30 09/21/19 09:13 100 MLS/HR Micafungin Sodium 100 mg/Dextrose 100 ml @ 100 mls/hr Q24H 09/18/19 12:00 09/20/19 13:36 100 MLS/HR Morphine Sulfate (Roxanol Conc) 4 mg PRN Q3HRS PRN 09/17/19 17:15 Multivitamins (Thera M Plus) 1 tab DAILY 09/18/19 09:00 09/21/19 09:12 1 TAB Ondansetron HCl (Zofran) 4 mg PRN Q6HRS PRN 09/18/19 08:30 Piperacillin Sod/ Tazobactam Sod (Zosyn Per Pharmacy) 1 each PRN DAILY PRN 09/17/19 17:45 UNV Sodium Chloride 1,000 ml @ 50 mls/hr Q20H 09/19/19 08:00 09/21/19 01:00 50 MLS/HR Tamsulosin HCl (Flomax) 0.4 mg QHS 09/17/19 21:00 09/20/19 21:27 0.4 MG Vancomycin HCl (Vanco Per Pharmacy) 1 each PRN DAILY PRN 09/18/19 10:15 09/18/19 10:08 DC Vancomycin HCl 1.25 gm/Sodium Chloride 250 ml @ 166.667 mls/hr 1X ONCE 09/17/19 18:00 09/17/19 19:29 DC 09/17/19 22:48 166.667 MLS/HR Lab Laboratory Tests Test 09/20/19 11:41 09/20/19 16:31 09/20/19 20:18 09/21/19 04:10 Glucose (Fingerstick) 100 mg/dL (70-99) 143 mg/dL (70-99) 162 mg/dL (70-99) Sodium Level 140 mmol/L (136-145) Potassium Level 4.8 mmol/L (3.5-5.1) Chloride Level 108 mmol/L (98-107) Carbon Dioxide Level 23 mmol/L (21-32) Anion Gap 9 (6-14) Blood Urea Nitrogen 67 mg/dL (8-26) Creatinine 2.4 mg/dL (0.7-1.3) Estimated GFR (Cockcroft-Gault) 31.5 Glucose Level 180 mg/dL (70-99) Calcium Level 7.7 mg/dL (8.5-10.1) Test 09/21/19 07:58 Glucose (Fingerstick) 149 mg/dL (70-99) Results All relevant outside records, renal labs, imaging studies, telemetry/EKG's were reviewed. MUNDO PEOPLES MD Sep 21, 2019 09:56
--- NOTE | 2019-09-21 10:32 | PDOC ---
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 prev hospice DNR History of Present Illness History of Present Illness GPC bacteremia ID and sensitivities still pending He has no complaints Aide feeding him SNU accepted, bed available No overnight calls LAst BM wednesday PLAn: Awaiting GPC identificn and sensitivities BOwel regimen, be on top of Turn q2 DNR SNU on dc prev hospice - palliative note reviewed Outside dnr signed by Dr Carcamo SNU first then hospice Vitals Vitals Vital Signs Date Time Temp Pulse Resp B/P (MAP) Pulse Ox O2 Delivery O2 Flow Rate FiO2 09/21/19 09:12 109 111/55 09/21/19 07:00 99.2 16 96 Room Air 99.2 Physical Exam General: Cooperative Heart: Regular rate, Normal S1, Normal S2 Lungs: Clear Abdomen: Soft Extremities: No clubbing, No cyanosis Skin: Other (sacral ulcer, some dusky central tissue, + odor, no drainage ) Labs LABS Laboratory Tests Test 09/20/19 11:41 09/20/19 16:31 09/20/19 20:18 09/21/19 04:10 Glucose (Fingerstick) 100 mg/dL (70-99) 143 mg/dL (70-99) 162 mg/dL (70-99) Sodium Level 140 mmol/L (136-145) Potassium Level 4.8 mmol/L (3.5-5.1) Chloride Level 108 mmol/L (98-107) Carbon Dioxide Level 23 mmol/L (21-32) Anion Gap 9 (6-14) Blood Urea Nitrogen 67 mg/dL (8-26) Creatinine 2.4 mg/dL (0.7-1.3) Estimated GFR (Cockcroft-Gault) 31.5 Glucose Level 180 mg/dL (70-99) Calcium Level 7.7 mg/dL (8.5-10.1) Test 09/21/19 07:58 Glucose (Fingerstick) 149 mg/dL (70-99) Review of Systems Review of Systems neg 14 pt reviewed [facility] him Assessment and Plan Assessmemt and Plan Problems Medical Problems: (1) Leukocytosis Status: Acute (2) Pressure ulcer Status: Acute (3) Unable to ambulate Status: Acute Comment Review of Relevant I have reviewed the following items christina (where applicable) has been applied. Labs Laboratory Tests Test 09/19/19 11:22 09/19/19 16:47 09/19/19 21:11 09/20/19 03:40 Glucose (Fingerstick) 148 mg/dL (70-99) 166 mg/dL (70-99) 180 mg/dL (70-99) White Blood Count 11.2 x10^3/uL (4.0-11.0) Red Blood Count 3.29 x10^6/uL (4.30-5.70) Hemoglobin 9.4 g/dL (13.0-17.5) Hematocrit 29.1 % (39.0-53.0) Mean Corpuscular Volume 88 fL (79-100) Mean Corpuscular Hemoglobin 29 pg (25-35) Mean Corpuscular Hemoglobin Concent 32 g/dL (31-37) Red Cell Distribution Width 18.2 % (11.5-14.5) Platelet Count 172 x10^3/uL (140-400) Neutrophils (%) (Auto) 89 % (31-73) Lymphocytes (%) (Auto) 5 % (24-48) Monocytes (%) (Auto) 5 % (0-9) Eosinophils (%) (Auto) 1 % (0-3) Basophils (%) (Auto) 0 % (0-3) Neutrophils # (Auto) 9.9 x10^3/uL (1.8-7.7) Lymphocytes # (Auto) 0.5 x10^3/uL (1.0-4.8) Monocytes # (Auto) 0.6 x10^3/uL (0.0-1.1) Eosinophils # (Auto) 0.1 x10^3/uL (0.0-0.7) Basophils # (Auto) 0.0 x10^3/uL (0.0-0.2) Sodium Level 142 mmol/L (136-145) Potassium Level 4.4 mmol/L (3.5-5.1) Chloride Level 110 mmol/L (98-107) Carbon Dioxide Level 24 mmol/L (21-32) Anion Gap 8 (6-14) Blood Urea Nitrogen 59 mg/dL (8-26) Creatinine 2.6 mg/dL (0.7-1.3) Estimated GFR (Cockcroft-Gault) 28.7 Glucose Level 136 mg/dL (70-99) Calcium Level 7.8 mg/dL (8.5-10.1) Test 09/20/19 07:23 09/20/19 11:41 09/20/19 16:31 09/20/19 20:18 Glucose (Fingerstick) 71 mg/dL (70-99) 100 mg/dL (70-99) 143 mg/dL (70-99) 162 mg/dL (70-99) Test 09/21/19 04:10 09/21/19 07:58 Sodium Level 140 mmol/L (136-145) Potassium Level 4.8 mmol/L (3.5-5.1) Chloride Level 108 mmol/L (98-107) Carbon Dioxide Level 23 mmol/L (21-32) Anion Gap 9 (6-14) Blood Urea Nitrogen 67 mg/dL (8-26) Creatinine 2.4 mg/dL (0.7-1.3) Estimated GFR (Cockcroft-Gault) 31.5 Glucose Level 180 mg/dL (70-99) Calcium Level 7.7 mg/dL (8.5-10.1) Glucose (Fingerstick) 149 mg/dL (70-99) Laboratory Tests Test 09/20/19 11:41 09/20/19 16:31 09/20/19 20:18 09/21/19 04:10 Glucose (Fingerstick) 100 mg/dL (70-99) 143 mg/dL (70-99) 162 mg/dL (70-99) Sodium Level 140 mmol/L (136-145) Potassium Level 4.8 mmol/L (3.5-5.1) Chloride Level 108 mmol/L (98-107) Carbon Dioxide Level 23 mmol/L (21-32) Anion Gap 9 (6-14) Blood Urea Nitrogen 67 mg/dL (8-26) Creatinine 2.4 mg/dL (0.7-1.3) Estimated GFR (Cockcroft-Gault) 31.5 Glucose Level 180 mg/dL (70-99) Calcium Level 7.7 mg/dL (8.5-10.1) Test 09/21/19 07:58 Glucose (Fingerstick) 149 mg/dL (70-99) Microbiology 09/17/19 Blood Culture - Preliminary, Resulted NO GROWTH AFTER 3 DAYS Medications Current Medications Acetaminophen/ Hydrocodone Bitart (Lortab 5/325) 1 tab 1X ONCE PO ; Start 09/17/19 at 15:45; Stop 09/17/19 at 15:46; Status DC Fentanyl Citrate (Fentanyl 2ml Vial) 25 mcg 1X ONCE IV Last administered on 09/17/19at 16:58; Start 09/17/19 at 17:00; Stop 09/17/19 at 17:01; Status DC Fentanyl Citrate (Fentanyl 2ml Vial) 25 mcg PRN Q3HRS PRN IV PAIN Last administered on 09/17/19at 18:31; Start 09/17/19 at 17:00; Stop 09/18/19 at 16:59; Status DC Sodium Chloride 500 ml @ 500 mls/hr 1X ONCE IV Last administered on 09/17/19at 17:11; Start 09/17/19 at 17:15; Stop 09/17/19 at 18:14; Status DC Amiodarone HCl (Cordarone) 200 mg DAILY PO Last administered on 09/21/19at 09:12; Start 09/18/19 at 09:00 Aspirin (Rachel Aspirin) 325 mg DAILYWBKFT PO Last administered on 09/21/19at 09:12; Start 09/18/19 at 08:00 Lorazepam (Ativan Intensol) 2 mg PRN Q6HRS PRN SL ANXIETY / AGITATION; Start 09/17/19 at 17:15 Morphine Sulfate (Roxanol Conc) 4 mg PRN Q3HRS PRN SL SEVERE PAIN; Start 09/17/19 at 17:15 Tamsulosin HCl (Flomax) 0.4 mg QHS PO Last administered on 09/20/19at 21:27; Start 09/17/19 at 21:00 Atorvastatin Calcium (Lipitor) 40 mg QHS PO Last administered on 09/20/19 21:27; Start 09/17/19 at 21:00 Multivitamins (Thera M Plus) 1 tab DAILY PO Last administered on 09/21/19 09:12; Start 09/18/19 at 09:00 Fish Oil (Fish Oil) 1,000 mg DAILY PO Last administered on 09/21/19 09:12; Start 09/18/19 at 09:00 Sodium Chloride 1,000 ml @ 75 mls/hr 1X ONCE IV Last administered on 09/17/19at 22:48; Start 09/17/19 at 17:15; Stop 09/18/19 at 06:34; Status DC Vancomycin HCl 1.25 gm/Sodium Chloride 250 ml @ 166.667 mls/hr 1X ONCE IV Last administered on 09/17/19at 22:48; Start 09/17/19 at 18:00; Stop 09/17/19 at 19:29; Status DC Vancomycin HCl (Vanco Per Pharmacy) 1 each PRN DAILY PRN MC SEE COMMENTS Last administered on 09/17/19 20:19; Start 09/17/19 at 17:15; Stop 09/18/19 at 10:37; Status DC Ceftriaxone Sodium (Rocephin) 1 gm Q24H IVP Last administered on 09/17/19at 17:47; Start 09/17/19 at 18:00; Stop 09/18/19 at 12:11; Status DC Insulin Glargine (Lantus Syringe) 8 unit QHS SQ Last administered on 09/20/19at 21:34; Start 09/17/19 at 21:00 Insulin Human Lispro (HumaLOG) 0-7 UNITS TIDACHC SQ Last administered on 09/17/19at 22:52; Start 09/17/19 at 21:00; Stop 09/18/19 at 08:30; Status DC Dextrose (Dextrose 50%-Water Syringe) 12.5 gm PRN Q15MIN PRN IV SEE COMMENTS; Start 09/17/19 at 17:15 Vancomycin HCl (Vanco Per Pharmacy) 1 each PRN DAILY PRN MC SEE COMMENTS; Start 09/17/19 at 17:45; Status UNV Piperacillin Sod/ Tazobactam Sod (Zosyn Per Pharmacy) 1 each PRN DAILY PRN MC SEE COMMENTS; Start 09/17/19 at 17:45; Status UNV Acetaminophen/ Hydrocodone Bitart (Lortab 5/325) 1 tab PRN Q4HRS PRN PO MODERATE PAIN Last administered on 09/19/19at 03:34; Start 09/18/19 at 08:30 Ondansetron HCl (Zofran) 4 mg PRN Q6HRS PRN IVP NAUSEA/VOMITING; Start at 08:30 Acetaminophen (Tylenol) 500 mg PRN Q6HRS PRN PO MILD PAIN / TEMP; Start 09/18/19 at 08:30; Stop 09/20/19 at 14:56; Status DC Linagliptin (Tradjenta) 5 mg DAILY PO Last administered on 09/21/19at 09:12; Start 09/18/19 at 09:00 Vancomycin HCl (Vanco Per Pharmacy) 1 each PRN DAILY PRN MC SEE COMMENTS; Start 09/18/19 at 10:15; Stop 09/18/19 at 10:08; Status DC Daptomycin 390 mg/ Sodium Chloride 50 ml @ 100 mls/hr Q24H IV Last administered on 09/20/19at 14:52; Start 09/18/19 at 13:00 Micafungin Sodium 100 mg/Dextrose 100 ml @ 100 mls/hr Q24H IV Last administered on 09/20/19at 13:36; Start 09/18/19 at 12:00 Meropenem 500 mg/ Sodium Chloride 50 ml @ 100 mls/hr Q12HR IV Last administered on 09/21/19at 09:13; Start 09/18/19 at 11:30 Lactobacillus Rhamnosus (Culturelle) 1 cap BID PO Last administered on 09/21/19at 09:12; Start 09/18/19 at 21:00 Sodium Chloride 500 ml @ 500 mls/hr 1X ONCE IV Last administered on 09/19/19at 08:14; Start 09/19/19 at 08:00; Stop 09/19/19 at 08:59; Status DC Sodium Chloride 1,000 ml @ 50 mls/hr Q20H IV Last administered on 09/21/19at 01:00; Start 09/19/19 at 08:00 Acetaminophen (Tylenol) 650 mg PRN Q6HRS PRN PO FEVER Last administered on 09/19/19at 08:19; Start 09/19/19 at 08:00 Active Scripts Active Lorazepam Intensol (Lorazepam) 2 Mg/1 Ml Oral.conc 2 Mg SL PRN Q6HRS PRN 10 Days Hydrocodone-Apap 5-325 (Hydrocodone Bit/Acetaminophen) 1 Tab Tablet 1 Tab PO PRN Q4HRS PRN Morphine Sulfate 100 Mg/5 Ml Solution 4 Mg SL PRN Q3HRS PRN 10 Days Humalog (Insulin Lispro) 100 Unit/1 Ml Insuln.pen 0 Units SQ TIDWMEALS 30 Days For BG 151-200 - 4u 201-250 - 5u 251-300 - 7u 301-350 - 9u >351 - Call Aspirin 325 Mg Tablet 325 Mg PO DAILYWBKFT 30 Days Flomax (Tamsulosin Hcl) 0.4 Mg Cap.er.24h 0.4 Mg PO QHS 30 Days Reported Furosemide 40 Mg Tablet 40 Mg PO DAILY Amiodarone Hcl 200 Mg Tablet 200 Mg PO DAILY Centrum Silver Chewable Tablet (Folic Acid/Multivits-Min/Lut) 1 Each Tab.chew 1 Each PO DAILY08 Tradjenta (Linagliptin) 5 Mg Tablet 5 Mg PO DAILY Potassium Chloride 10 Meq Tablet.er 10 Meq PO DAILY Fish Oil 1,000 Mg Softgel (Comer-3 Fatty Acids/Fish Oil) 1 Each Capsule 1 Each PO DAILY Atorvastatin Calcium 80 Mg Tablet 40 Mg PO DAILY Vitals/I & O Vital Sign - Last 24 Hours 09/20/19 09/20/19 09/20/19 09/20/19 11:00 15:00 19:00 20:00 Temp 99.3 98.5 98.9 99.3 98.5 98.9 Pulse 71 64 68 Resp 16 16 22 B/P (MAP) 90/46 (61) 92/44 (60) 111/57 (75) Pulse Ox 94 94 93 O2 Delivery Room Air Room Air Room Air Room Air 09/20/19 09/21/19 09/21/19 09/21/19 23:00 03:00 07:00 09:12 Temp 99.2 99.6 99.2 99.2 99.6 99.2 Pulse 69 69 109 109 Resp 22 20 16 B/P (MAP) 110/58 (75) 92/41 (58) 111/55 (73) 111/55 Pulse Ox 93 95 96 O2 Delivery Room Air Room Air Room Air Intake and Output 09/20/19 09/20/19 09/21/19 15:00 23:00 07:00 Intake Total 150 ml 50 ml 150 ml Output Total 500 ml 350 ml 100 ml Balance -350 ml -300 ml 50 ml Nutrition Consultation Dietary Evaluation: Recommendations by RD: Increase Calorie Intake, Protein supplementation Comments: diet change to mech soft, ADA, Renal nepro bid chandu bid continue mvi Expected Outcomes/Goals: to meet > 75% est nutrition needs Malnutrition Findings: Food and Nutrition Intake (Mod: <75% est energy req 7days Body Fat Depletion (Non Severe: Mild Depletion Weight Status: Underweight MARITA VELAZQUEZ MD Sep 21, 2019 10:32
[2019-09-21 11:00] VITALS: BP 94/60
--- NOTE | 2019-09-21 11:25 | PDOC ---
USMAN BELLE [employer] PROJECT MANAGER 09/21/19 1125: SURGICAL PROGRESS NOTE Subjective resting no complaints talking with visitors Vital Signs Vital Signs Date Time Temp Pulse Resp B/P (MAP) Pulse Ox O2 Delivery O2 Flow Rate FiO2 09/21/19 11:00 98.7 111 16 94/60 (71) 94 Room Air 98.7 I&O Intake and Output 09/21/19 07:00 Intake Total 350 ml Output Total 950 ml Balance -600 ml Intake Oral 150 ml IV Total 200 ml Output Urine Total 950 ml General: Alert, Cooperative Abdomen: Soft Labs Laboratory Tests Test 09/19/19 16:47 09/19/19 21:11 09/20/19 03:40 09/20/19 07:23 Glucose (Fingerstick) 166 mg/dL (70-99) 180 mg/dL (70-99) 71 mg/dL (70-99) White Blood Count 11.2 x10^3/uL (4.0-11.0) Red Blood Count 3.29 x10^6/uL (4.30-5.70) Hemoglobin 9.4 g/dL (13.0-17.5) Hematocrit 29.1 % (39.0-53.0) Mean Corpuscular Volume 88 fL (79-100) Mean Corpuscular Hemoglobin 29 pg (25-35) Mean Corpuscular Hemoglobin Concent 32 g/dL (31-37) Red Cell Distribution Width 18.2 % (11.5-14.5) Platelet Count 172 x10^3/uL (140-400) Neutrophils (%) (Auto) 89 % (31-73) Lymphocytes (%) (Auto) 5 % (24-48) Monocytes (%) (Auto) 5 % (0-9) Eosinophils (%) (Auto) 1 % (0-3) Basophils (%) (Auto) 0 % (0-3) Neutrophils # (Auto) 9.9 x10^3/uL (1.8-7.7) Lymphocytes # (Auto) 0.5 x10^3/uL (1.0-4.8) Monocytes # (Auto) 0.6 x10^3/uL (0.0-1.1) Eosinophils # (Auto) 0.1 x10^3/uL (0.0-0.7) Basophils # (Auto) 0.0 x10^3/uL (0.0-0.2) Sodium Level 142 mmol/L (136-145) Potassium Level 4.4 mmol/L (3.5-5.1) Chloride Level 110 mmol/L (98-107) Carbon Dioxide Level 24 mmol/L (21-32) Anion Gap 8 (6-14) Blood Urea Nitrogen 59 mg/dL (8-26) Creatinine 2.6 mg/dL (0.7-1.3) Estimated GFR (Cockcroft-Gault) 28.7 Glucose Level 136 mg/dL (70-99) Calcium Level 7.8 mg/dL (8.5-10.1) Test 09/20/19 11:41 09/20/19 16:31 09/20/19 20:18 09/21/19 04:10 Glucose (Fingerstick) 100 mg/dL (70-99) 143 mg/dL (70-99) 162 mg/dL (70-99) Sodium Level 140 mmol/L (136-145) Potassium Level 4.8 mmol/L (3.5-5.1) Chloride Level 108 mmol/L (98-107) Carbon Dioxide Level 23 mmol/L (21-32) Anion Gap 9 (6-14) Blood Urea Nitrogen 67 mg/dL (8-26) Creatinine 2.4 mg/dL (0.7-1.3) Estimated GFR (Cockcroft-Gault) 31.5 Glucose Level 180 mg/dL (70-99) Calcium Level 7.7 mg/dL (8.5-10.1) Test 09/21/19 07:58 Glucose (Fingerstick) 149 mg/dL (70-99) Laboratory Tests Test 09/20/19 11:41 09/20/19 16:31 09/20/19 20:18 09/21/19 04:10 Glucose (Fingerstick) 100 mg/dL (70-99) 143 mg/dL (70-99) 162 mg/dL (70-99) Sodium Level 140 mmol/L (136-145) Potassium Level 4.8 mmol/L (3.5-5.1) Chloride Level 108 mmol/L (98-107) Carbon Dioxide Level 23 mmol/L (21-32) Anion Gap 9 (6-14) Blood Urea Nitrogen 67 mg/dL (8-26) Creatinine 2.4 mg/dL (0.7-1.3) Estimated GFR (Cockcroft-Gault) 31.5 Glucose Level 180 mg/dL (70-99) Calcium Level 7.7 mg/dL (8.5-10.1) Test 09/21/19 07:58 Glucose (Fingerstick) 149 mg/dL (70-99) Problem List Problems Medical Problems: (1) Leukocytosis Status: Acute (2) Pressure ulcer Status: Acute (3) Unable to ambulate Status: Acute Assessment/Plan noted wound care note continue supportive measures no current surgical plans RIVERA BIANCHI MD 09/21/19 1424: SURGICAL PROGRESS NOTE Assessment/Plan Pt seen and examined. Agree with MsUday Belle's note Pt without c/o abd soft cont wound care USMAN BELLE APRN Sep 21, 2019 11:25 RIVERA BIANCHI MD Sep 21, 2019 14:24
--- NOTE | 2019-09-21 11:52 | NUR ---
SW following pt. SW spoke with pt's daughter, Courtney, phone: [phone] and discussed private [place] regarding for LTC placement between [facility] vs [place]. Daughter agreeable with pt going to [facility] for SNU and transition for LTC with hospice. SW will continue to follow.
[2019-09-21] MEDS: MICAFUNGIN 100 MG in IV DEXTROSE 5% 100ML 100 ML IV SCH (13:12)
[2019-09-21] MEDS: DAPTOmycin (GENERIC) IVPB 390 MG in IV NORMAL SALINE 50ML 50 ML IV SCH (13:17)
[2019-09-21 14:51] VITALS: BP 107/46
[2019-09-21 19:00] VITALS: BP 124/65
[2019-09-21] MEDS: TAMSULOSIN 0.4 MG CAP.ER.24H. PO SCH (21:18)
[2019-09-21] MEDS: ATORVASTATIN CALCIUM 40 MG TABLET. PO SCH (21:18)
[2019-09-21] MEDS: INSULIN GLARGINE SYRINGE. SQ SCH (21:24)
[2019-09-21 23:00] VITALS: BP 111/56
[2019-09-22] VITALS (7 sets, daily range): BP systolic 102–152; BP diastolic 43–71
--- NOTE | 2019-09-22 09:43 | PDOC ---
Infectious Disease Note Subjective: Subjective Pt says feels better denies any n/v/d/abdo pain/sob ROS: ROS Negative otherwise. Vital Signs: Vital Signs Vital Signs Date Time Temp Pulse Resp B/P (MAP) Pulse Ox O2 Delivery O2 Flow Rate FiO2 09/22/19 08:26 99.1 70 20 116/57 (76) 92 Room Air 99.1 Medications: Inpatient Meds: Current Medications Medications (Trade) Dose Ordered Sig/Pat Start Time Stop Time Status Last Admin Dose Admin Acetaminophen (Tylenol) 650 mg PRN Q6HRS PRN 09/19/19 08:00 09/19/19 08:19 650 MG Acetaminophen/ Hydrocodone Bitart (Lortab 5/325) 1 tab PRN Q4HRS PRN 09/18/19 08:30 09/19/19 03:34 1 TAB Amiodarone HCl (Cordarone) 200 mg DAILY 09/18/19 09:00 09/21/19 09:12 200 MG Aspirin (Rachel Aspirin) 325 mg DAILYWBKFT 09/18/19 08:00 09/21/19 09:12 325 MG Atorvastatin Calcium (Lipitor) 40 mg QHS 09/17/19 21:00 09/21/19 21:18 40 MG Ceftriaxone Sodium (Rocephin) 1 gm Q24H 09/17/19 18:00 09/18/19 12:11 DC 09/17/19 17:47 1 GM Daptomycin 390 mg/ Sodium Chloride 50 ml @ 100 mls/hr Q24H 09/18/19 13:00 09/21/19 13:17 100 MLS/HR Dextrose (Dextrose 50%-Water Syringe) 12.5 gm PRN Q15MIN PRN 09/17/19 17:15 Fentanyl Citrate (Fentanyl 2ml Vial) 25 mcg PRN Q3HRS PRN 09/17/19 17:00 09/18/19 16:59 DC 09/17/19 18:31 25 MCG Fish Oil (Fish Oil) 1,000 mg DAILY 09/18/19 09:00 09/21/19 09:12 1,000 MG Insulin Glargine (Lantus Syringe) 8 unit QHS 09/17/19 21:00 09/21/19 21:24 8 UNIT Insulin Human Lispro (HumaLOG) 0-7 UNITS TIDACHC 09/17/19:00 09/18/19 08:30 DC 09/17/19 22:52 2 UNITS Lactobacillus Rhamnosus (Culturelle) 1 cap BID 09/18/19 21:00 09/21/19 21:18 1 CAP Linagliptin (Tradjenta) 5 mg DAILY 09/18/19 09:00 09/21/19 09:12 5 MG Lorazepam (Ativan Intensol) 2 mg PRN Q6HRS PRN 09/17/19 17:15 Meropenem 500 mg/ Sodium Chloride 50 ml @ 100 mls/hr Q12HR 09/18/19 11:30 09/21/19 21:13 100 MLS/HR Micafungin Sodium 100 mg/Dextrose 100 ml @ 100 mls/hr Q24H 09/18/19 12:00 09/21/19 13:12 100 MLS/HR Morphine Sulfate (Roxanol Conc) 4 mg PRN Q3HRS PRN 09/17/19 17:15 Multivitamins (Thera M Plus) 1 tab DAILY 09/18/19 09:00 09/21/19 09:12 1 TAB Ondansetron HCl (Zofran) 4 mg PRN Q6HRS PRN 09/18/19 08:30 Piperacillin Sod/ Tazobactam Sod (Zosyn Per Pharmacy) 1 each PRN DAILY PRN 09/17/19 17:45 UNV Sodium Chloride 1,000 ml @ 50 mls/hr Q20H 09/19/19 08:00 09/21/19 21:13 50 MLS/HR Tamsulosin HCl (Flomax) 0.4 mg QHS 09/17/19 21:00 09/21/19 21:18 0.4 MG Vancomycin HCl (Vanco Per Pharmacy) 1 each PRN DAILY PRN 09/18/19 10:15 09/18/19 10:08 DC Vancomycin HCl 1.25 gm/Sodium Chloride 250 ml @ 166.667 mls/hr 1X ONCE 09/17/19 18:00 09/17/19 19:29 DC 09/17/19 22:48 166.667 MLS/HR Labs: Lab Laboratory Tests Test 09/21/19 11:19 09/21/19 17:24 09/21/19 21:00 09/22/19 07:33 Glucose (Fingerstick) 162 mg/dL (70-99) 183 mg/dL (70-99) 176 mg/dL (70-99) 120 mg/dL (70-99) Objective: Assessment: 1. Fever.source large infected decubitus necrotic wound 2. Leukocytosis. 3. Bacteremia 2 /4 bottles with GPCs in clusters.staph and strep,final ID and PREET pending. Source likely infected sacral wound. 4. Infected sacral wound with surrounding cellulitis. 5. Chronic kidney disease. 6. Atrial fibrillation. 7. History of benign prostatic hypertrophy with hematuria and inability to place [place]. 8. Generalized anasarca. 9. Generalized debility. 10. Dysphagia 11. PCM Plan: Plan of Care Cont Daptomycin, meropenem and micafungin. Dose of daptomycin and meropenem may need to be adjusted per renal function. gen surgery following Palliative care following pt f/u blood cultures Continue local wound care. Continue supportive care. Continue offload. Prognosis poor f/u labs from this am DAYSI HENRIQUEZ MD Sep 22, 2019 09:43
[2019-09-22 10:41] LABS: BASO # 0.1 x10^3/uL (0.0-0.2); BASO % 1 % (0-3); EOS # 0.2 x10^3/uL (0.0-0.7); EOS % 2 % (0-3); GFR 38.9; HEMATOCRIT 28.1 % (39.0-53.0); HEMOGLOBIN 9.3 g/dL (13.0-17.5); LYMPH # 0.8 x10^3/uL (1.0-4.8); LYMPH % 9 % (24-48); MEAN CORPUSCULAR HEMOGLOBIN 29 pg (25-35); MEAN CORPUSCULAR HGB CONC 33 g/dL (31-37); MEAN CORPUSCULAR VOLUME 87 fL (79-100); MONO # 0.6 x10^3/uL (0.0-1.1); MONO % 7 % (0-9); NEUT # 7.2 x10^3/uL (1.8-7.7); NEUT % 81 % (31-73); PLATELET COUNT 226 x10^3/uL (140-400); POTASSIUM 4.6 mmol/L (3.5-5.1); RED BLOOD COUNT 3.24 x10^6/uL (4.30-5.70); RED CELL DISTRIBUTION WIDTH 18.5 % (11.5-14.5); WHITE BLOOD COUNT 8.9 x10^3/uL (4.0-11.0)
--- NOTE | 2019-09-22 11:19 | PDOC ---
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 prev hospice DNR History of Present Illness History of Present Illness GPC bacteremia ID and sensitivities still pending He has no complaints Aide feeding him SNU accepted, bed available No overnight calls LAst BM wednesday PLAn: Awaiting GPC identificn and sensitivities BOwel regimen, be on top of Turn q2 DNR SNU on dc prev hospice - palliative note reviewed Outside dnr signed by Dr Carcamo SNU first then hospice SNU HAS A BED AVAILABLE SINCE WEDNESDAY Vitals Vitals Vital Signs Date Time Temp Pulse Resp B/P (MAP) Pulse Ox O2 Delivery O2 Flow Rate FiO2 09/22/19 08:26 99.1 70 20 116/57 (76) 92 Room Air 99.1 Physical Exam General: Alert, Cooperative Heart: Regular rate, Normal S1, Normal S2 Lungs: Clear Abdomen: Soft Extremities: No clubbing, No cyanosis Skin: Other (sacral ulcer, some dusky central tissue, + odor, no drainage ) Labs LABS Laboratory Tests Test 09/21/19 11:19 09/21/19 17:24 09/21/19 21:00 09/22/19 07:33 Glucose (Fingerstick) 162 mg/dL (70-99) 183 mg/dL (70-99) 176 mg/dL (70-99) 120 mg/dL (70-99) Test 09/22/19 10:00 White Blood Count 8.9 x10^3/uL (4.0-11.0) Red Blood Count 3.24 x10^6/uL (4.30-5.70) Hemoglobin 9.3 g/dL (13.0-17.5) Hematocrit 28.1 % (39.0-53.0) Mean Corpuscular Volume 87 fL (79-100) Mean Corpuscular Hemoglobin 29 pg (25-35) Mean Corpuscular Hemoglobin Concent 33 g/dL (31-37) Red Cell Distribution Width 18.5 % (11.5-14.5) Platelet Count 226 x10^3/uL (140-400) Neutrophils (%) (Auto) 81 % (31-73) Lymphocytes (%) (Auto) 9 % (24-48) Monocytes (%) (Auto) 7 % (0-9) Eosinophils (%) (Auto) 2 % (0-3) Basophils (%) (Auto) 1 % (0-3) Neutrophils # (Auto) 7.2 x10^3/uL (1.8-7.7) Lymphocytes # (Auto) 0.8 x10^3/uL (1.0-4.8) Monocytes # (Auto) 0.6 x10^3/uL (0.0-1.1) Eosinophils # (Auto) 0.2 x10^3/uL (0.0-0.7) Basophils # (Auto) 0.1 x10^3/uL (0.0-0.2) Sodium Level 141 mmol/L (136-145) Potassium Level 4.6 mmol/L (3.5-5.1) Chloride Level 109 mmol/L (98-107) Carbon Dioxide Level 23 mmol/L (21-32) Anion Gap 9 (6-14) Blood Urea Nitrogen 65 mg/dL (8-26) Creatinine 2.0 mg/dL (0.7-1.3) Estimated GFR (Cockcroft-Gault) 38.9 Glucose Level 153 mg/dL (70-99) Calcium Level 8.0 mg/dL (8.5-10.1) Review of Systems Review of Systems asleep i did not awaken Assessment and Plan Assessmemt and Plan Problems Medical Problems: (1) Leukocytosis Status: Acute (2) Pressure ulcer Status: Acute (3) Unable to ambulate Status: Acute Comment Review of Relevant I have reviewed the following items christina (where applicable) has been applied. Labs Laboratory Tests Test 09/20/19 11:41 09/20/19 16:31 09/20/19 20:18 09/21/19 04:10 Glucose (Fingerstick) 100 mg/dL (70-99) 143 mg/dL (70-99) 162 mg/dL (70-99) Sodium Level 140 mmol/L (136-145) Potassium Level 4.8 mmol/L (3.5-5.1) Chloride Level 108 mmol/L (98-107) Carbon Dioxide Level 23 mmol/L (21-32) Anion Gap 9 (6-14) Blood Urea Nitrogen 67 mg/dL (8-26) Creatinine 2.4 mg/dL (0.7-1.3) Estimated GFR (Cockcroft-Gault) 31.5 Glucose Level 180 mg/dL (70-99) Calcium Level 7.7 mg/dL (8.5-10.1) Test 09/21/19 07:58 09/21/19 11:19 09/21/19 17:24 09/21/19 21:00 Glucose (Fingerstick) 149 mg/dL (70-99) 162 mg/dL (70-99) 183 mg/dL (70-99) 176 mg/dL (70-99) Test 09/22/19 07:33 09/22/19 10:00 Glucose (Fingerstick) 120 mg/dL (70-99) White Blood Count 8.9 x10^3/uL (4.0-11.0) Red Blood Count 3.24 x10^6/uL (4.30-5.70) Hemoglobin 9.3 g/dL (13.0-17.5) Hematocrit 28.1 % (39.0-53.0) Mean Corpuscular Volume 87 fL (79-100) Mean Corpuscular Hemoglobin 29 pg (25-35) Mean Corpuscular Hemoglobin Concent 33 g/dL (31-37) Red Cell Distribution Width 18.5 % (11.5-14.5) Platelet Count 226 x10^3/uL (140-400) Neutrophils (%) (Auto) 81 % (31-73) Lymphocytes (%) (Auto) 9 % (24-48) Monocytes (%) (Auto) 7 % (0-9) Eosinophils (%) (Auto) 2 % (0-3) Basophils (%) (Auto) 1 % (0-3) Neutrophils # (Auto) 7.2 x10^3/uL (1.8-7.7) Lymphocytes # (Auto) 0.8 x10^3/uL (1.0-4.8) Monocytes # (Auto) 0.6 x10^3/uL (0.0-1.1) Eosinophils # (Auto) 0.2 x10^3/uL (0.0-0.7) Basophils # (Auto) 0.1 x10^3/uL (0.0-0.2) Sodium Level 141 mmol/L (136-145) Potassium Level 4.6 mmol/L (3.5-5.1) Chloride Level 109 mmol/L (98-107) Carbon Dioxide Level 23 mmol/L (21-32) Anion Gap 9 (6-14) Blood Urea Nitrogen 65 mg/dL (8-26) Creatinine 2.0 mg/dL (0.7-1.3) Estimated GFR (Cockcroft-Gault) 38.9 Glucose Level 153 mg/dL (70-99) Calcium Level 8.0 mg/dL (8.5-10.1) Laboratory Tests Test 09/21/19 11:19 09/21/19 17:24 09/21/19 21:00 09/22/19 07:33 Glucose (Fingerstick) 162 mg/dL (70-99) 183 mg/dL (70-99) 176 mg/dL (70-99) 120 mg/dL (70-99) Test 09/22/19 10:00 White Blood Count 8.9 x10^3/uL (4.0-11.0) Red Blood Count 3.24 x10^6/uL (4.30-5.70) Hemoglobin 9.3 g/dL (13.0-17.5) Hematocrit 28.1 % (39.0-53.0) Mean Corpuscular Volume 87 fL (79-100) Mean Corpuscular Hemoglobin 29 pg (25-35) Mean Corpuscular Hemoglobin Concent 33 g/dL (31-37) Red Cell Distribution Width 18.5 % (11.5-14.5) Platelet Count 226 x10^3/uL (140-400) Neutrophils (%) (Auto) 81 % (31-73) Lymphocytes (%) (Auto) 9 % (24-48) Monocytes (%) (Auto) 7 % (0-9) Eosinophils (%) (Auto) 2 % (0-3) Basophils (%) (Auto) 1 % (0-3) Neutrophils # (Auto) 7.2 x10^3/uL (1.8-7.7) Lymphocytes # (Auto) 0.8 x10^3/uL (1.0-4.8) Monocytes # (Auto) 0.6 x10^3/uL (0.0-1.1) Eosinophils # (Auto) 0.2 x10^3/uL (0.0-0.7) Basophils # (Auto) 0.1 x10^3/uL (0.0-0.2) Sodium Level 141 mmol/L (136-145) Potassium Level 4.6 mmol/L (3.5-5.1) Chloride Level 109 mmol/L (98-107) Carbon Dioxide Level 23 mmol/L (21-32) Anion Gap 9 (6-14) Blood Urea Nitrogen 65 mg/dL (8-26) Creatinine 2.0 mg/dL (0.7-1.3) Estimated GFR (Cockcroft-Gault) 38.9 Glucose Level 153 mg/dL (70-99) Calcium Level 8.0 mg/dL (8.5-10.1) Microbiology 09/17/19 Blood Culture - Preliminary, Resulted NO GROWTH AFTER 4 DAYS Medications Current Medications Acetaminophen/ Hydrocodone Bitart (Lortab 5/325) 1 tab 1X ONCE PO ; Start 09/17/19 at 15:45; Stop 09/17/19 at 15:46; Status DC Fentanyl Citrate (Fentanyl 2ml Vial) 25 mcg 1X ONCE IV Last administered on 09/17/19at 16:58; Start 09/17/19 at 17:00; Stop 09/17/19 at 17:01; Status DC Fentanyl Citrate (Fentanyl 2ml Vial) 25 mcg PRN Q3HRS PRN IV PAIN Last administered on 09/17/19at 18:31; Start 09/17/19 at 17:00; Stop 09/18/19 at 16:59; Status DC Sodium Chloride 500 ml @ 500 mls/hr 1X ONCE IV Last administered on 09/17/19at 17:11; Start 09/17/19 at 17:15; Stop 09/17/19 at 18:14; Status DC Amiodarone HCl (Cordarone) 200 mg DAILY PO Last administered on 09/21/19 09:12; Start 09/18/19 at 09:00 Aspirin (Rachel Aspirin) 325 mg DAILYWBKFT PO Last administered on 09/21/19 09:12; Start 09/18/19 at 08:00 Lorazepam (Ativan Intensol) 2 mg PRN Q6HRS PRN SL ANXIETY / AGITATION; Start 09/17/19 at 17:15 Morphine Sulfate (Roxanol Conc) 4 mg PRN Q3HRS PRN SL SEVERE PAIN; Start 09/17/19 at 17:15 Tamsulosin HCl (Flomax) 0.4 mg QHS PO Last administered on 09/21/19 21:18; Start 09/17/19 at 21:00 Atorvastatin Calcium (Lipitor) 40 mg QHS PO Last administered on 09/21/19 21:18; Start 09/17/19 at 21:00 Multivitamins (Thera M Plus) 1 tab DAILY PO Last administered on 09/21/19 09:12; Start 09/18/19 at 09:00 Fish Oil (Fish Oil) 1,000 mg DAILY PO Last administered on 09/21/19 09:12; Start 09/18/19 at 09:00 Sodium Chloride 1,000 ml @ 75 mls/hr 1X ONCE IV Last administered on 09/17/19 22:48; Start 09/17/19 at 17:15; Stop 09/18/19 at 06:34; Status DC Vancomycin HCl 1.25 gm/Sodium Chloride 250 ml @ 166.667 mls/hr 1X ONCE IV Last administered on 09/17/19at 22:48; Start 09/17/19 at 18:00; Stop 09/17/19 at 19:29; Status DC Vancomycin HCl (Vanco Per Pharmacy) 1 each PRN DAILY PRN MC SEE COMMENTS Last administered on 09/17/19 20:19; Start 09/17/19 at 17:15; Stop 09/18/19 at 10:37; Status DC Ceftriaxone Sodium (Rocephin) 1 gm Q24H IVP Last administered on 09/17/19at 17:47; Start 09/17/19 at 18:00; Stop 09/18/19 at 12:11; Status DC Insulin Glargine (Lantus Syringe) 8 unit QHS SQ Last administered on 09/21/19at 21:24; Start 09/17/19 at 21:00 Insulin Human Lispro (HumaLOG) 0-7 UNITS TIDACHC SQ Last administered on 09/17/19at 22:52; Start 09/17/19 at 21:00; Stop 09/18/19 at 08:30; Status DC Dextrose (Dextrose 50%-Water Syringe) 12.5 gm PRN Q15MIN PRN IV SEE COMMENTS; Start 09/17/19 at 17:15 Vancomycin HCl (Vanco Per Pharmacy) 1 each PRN DAILY PRN MC SEE COMMENTS; Start 09/17/19 at 17:45; Status UNV Piperacillin Sod/ Tazobactam Sod (Zosyn Per Pharmacy) 1 each PRN DAILY PRN MC SEE COMMENTS; Start 09/17/19 at 17:45; Status UNV Acetaminophen/ Hydrocodone Bitart (Lortab 5/325) 1 tab PRN Q4HRS PRN PO MODERATE PAIN Last administered on 09/19/19at 03:34; Start 09/18/19 at 08:30 Ondansetron HCl (Zofran) 4 mg PRN Q6HRS PRN IVP NAUSEA/VOMITING; Start 09/18/19 at 08:30 Acetaminophen (Tylenol) 500 mg PRN Q6HRS PRN PO MILD PAIN / TEMP; Start 09/18/19 at 08:30; Stop 09/20/19 at 14:56; Status DC Linagliptin (Tradjenta) 5 mg DAILY PO Last administered on 09/21/19at 09:12; Start 09/18/19 at 09:00 Vancomycin HCl (Vanco Per Pharmacy) 1 each PRN DAILY PRN MC SEE COMMENTS; Start 09/18/19 at 10:15; Stop 09/18/19 at 10:08; Status DC Daptomycin 390 mg/ Sodium Chloride 50 ml @ 100 mls/hr Q24H IV Last administered on 09/21/19at 13:17; Start 09/18/19 at 13:00 Micafungin Sodium 100 mg/Dextrose 100 ml @ 100 mls/hr Q24H IV Last administered on 09/21/19at 13:12; Start 09/18/19 at 12:00 Meropenem 500 mg/ Sodium Chloride 50 ml @ 100 mls/hr Q12HR IV Last administered on 09/21/19at 21:13; Start 09/18/19 at 11:30 Lactobacillus Rhamnosus (Culturelle) 1 cap BID PO Last administered on 09/21/19at 21:18; Start 09/18/19 at 21:00 Sodium Chloride 500 ml @ 500 mls/hr 1X ONCE IV Last administered on 09/19/19at 08:14; Start 09/19/19 at 08:00; Stop 09/19/19 at 08:59; Status DC Sodium Chloride 1,000 ml @ 50 mls/hr Q20H IV Last administered on 09/21/19at 21:13; Start 09/19/19 at 08:00 Acetaminophen (Tylenol) 650 mg PRN Q6HRS PRN PO FEVER Last administered on 09/19/19at 08:19; Start 09/19/19 at 08:00 Active Scripts Active Lorazepam Intensol (Lorazepam) 2 Mg/1 Ml Oral.conc 2 Mg SL PRN Q6HRS PRN 10 Days Hydrocodone-Apap 5-325 (Hydrocodone Bit/Acetaminophen) 1 Tab Tablet 1 Tab PO PRN Q4HRS PRN Morphine Sulfate 100 Mg/5 Ml Solution 4 Mg SL PRN Q3HRS PRN 10 Days Humalog (Insulin Lispro) 100 Unit/1 Ml Insuln.pen 0 Units SQ TIDWMEALS 30 Days For BG 151-200 - 4u 201-250 - 5u 251-300 - 7u 301-350 - 9u >351 - Call Aspirin 325 Mg Tablet 325 Mg PO DAILYWBKFT 30 Days Flomax (Tamsulosin Hcl) 0.4 Mg Cap.er.24h 0.4 Mg PO QHS 30 Days Reported Furosemide 40 Mg Tablet 40 Mg PO DAILY Amiodarone Hcl 200 Mg Tablet 200 Mg PO DAILY Centrum Silver Chewable Tablet (Folic Acid/Multivits-Min/Lut) 1 Each Tab.chew 1 Each PO DAILY08 Tradjenta (Linagliptin) 5 Mg Tablet 5 Mg PO DAILY Potassium Chloride 10 Meq Tablet.er 10 Meq PO DAILY Fish Oil 1,000 Mg Softgel ([place]-3 Fatty Acids/Fish Oil) 1 Each Capsule 1 Each PO DAILY Atorvastatin Calcium 80 Mg Tablet 40 Mg PO DAILY Vitals/I & O Vital Sign - Last 24 Hours 09/21/19 09/21/19 09/21/19 09/21/19 14:51 19:00 20:06 23:00 Temp 98.4 98.4 98.7 98.4 98.4 98.7 Pulse 66 68 67 Resp 18 18 18 B/P (MAP) 107/46 (66) 124/65 (84) 111/56 (74) Pulse Ox 98 100 96 O2 Delivery Room Air Room Air Room Air Room Air 09/22/19 09/22/19 09/22/19 02:43 07:00 08:26 Temp 98.4 99.1 99.1 98.4 99.1 99.1 Pulse 71 70 70 Resp 16 20 20 B/P (MAP) 152/71 (98) 116/57 (76) 116/57 (76) Pulse Ox 99 92 92 O2 Delivery Room Air Room Air Room Air Intake and Output 09/21/19 09/21/19 09/22/19 15:00 23:00 07:00 Intake Total 590 ml 500 ml 20 ml Output Total 400 ml 200 ml Balance 190 ml 500 ml -180 ml Nutrition Consultation Dietary Evaluation: Recommendations by RD: Increase Calorie Intake, Protein supplementation Comments: mech soft, ADA, Renal nepro bid chandu bid continue mvi Expected Outcomes/Goals: to meet > 75% est nutrition needs- met at times, goal ongoing Malnutrition Findings: Food and Nutrition Intake (Mod: <75% est energy req 7days Body Fat Depletion (Non Severe: Mild Depletion Weight Status: Underweight MARITA VELAZQUEZ MD Sep 22, 2019 11:19
--- NOTE | 2019-09-22 11:20 | NUR ---
SW following. Pt has been accepted at [facility] for SNU. Awaiting discharge. SW will continue to follow.
--- NOTE | 2019-09-22 12:52 | PDOC ---
SUBJECTIVE ROS Stable OBJECTIVE Vital Signs Vital Signs Date Time Temp Pulse Resp B/P (MAP) Pulse Ox O2 Delivery O2 Flow Rate FiO2 09/22/19 11:00 99.5 72 20 105/54 (71) 96 Room Air 99.5 I & 0 Intake and Output 09/22/19 07:00 Intake Total 1110 ml Output Total 600 ml Balance 510 ml Intake Oral 1110 ml Output Urine Total 600 ml PHYSICAL EXAM Physical Exam GENERAL: NAD HEENT OM moist , On O2 by NC NECK Supple HEART: Normal S1, S2. LUNGS: Clear. ABDOMEN: Soft, NT EXTREMITIES: Trace edema - Elaine + NEURO- Grossly Normal S DIAGNOSIS/ASSESSMENT Assessment & Plan RYAN - Vasomotor- Poor PO intake , BEE Has baseline CKD , UA unremarkable , renal function improving EF of 15% , Supportive care, strict I/O Monitor Renal US -Urinary retention -770 ml - has a elaine now Hyperkalemia K supplements at home and suspect 2/2 urinary retention ,Resolved CKD-baseline Unknown Hospitalized in April with Cr 1.5 -1.7, peaked at 2.1 ,Renal US- Echogenic Kidneys Hypotension- On multiple BP meds as OP ,Currently Holding antihypertensives Acute on chronic systolic CHF- stable, compensated , ischemic cardiomyopathy with low EF 15% Recd Lasix IV x1 per cardiology CAD, s/p CABG Severe benign prostatic hypertrophy-US in April no e/o BEE , Elaine again this admission- placed with difficulty Recommend Urology consult DM - per primary Sacral decubitus ulcer - with foul-smell, On Dapto per ID Falls at home recurrently - now bedbound failure to thrive CAD s/p CABG in 1999 - stable History of renal stones Renal US-- Urinary bladder volume is 775 cc. Debris within the urinary bladder evident. Distended urinary bladder with debris within it. COMMENT/RELEVANT DATA Meds Current Medications Medications (Trade) Dose Ordered Sig/Pat Start Time Stop Time Status Last Admin Dose Admin Acetaminophen (Tylenol) 650 mg PRN Q6HRS PRN 09/19/19 08:00 09/19/19 08:19 650 MG Acetaminophen/ Hydrocodone Bitart (Lortab 5/325) 1 tab PRN Q4HRS PRN 09/18/19 08:30 09/19/19 03:34 1 TAB Amiodarone HCl (Cordarone) 200 mg DAILY 09/18/19 09:00 09/21/19 09:12 200 MG Aspirin (Rachel Aspirin) 325 mg DAILYWBKFT 09/18/19 08:00 09/21/19 09:12 325 MG Atorvastatin Calcium (Lipitor) 40 mg QHS 09/17/19 21:00 09/21/19 21:18 40 MG Ceftriaxone Sodium (Rocephin) 1 gm Q24H 09/17/19 18:00 09/18/19 12:11 DC 09/17/19 17:47 1 GM Daptomycin 390 mg/ Sodium Chloride 50 ml @ 100 mls/hr Q24H 09/18/19 13:00 09/21/19 13:17 100 MLS/HR Dextrose (Dextrose 50%-Water Syringe) 12.5 gm PRN Q15MIN PRN 09/17/19 17:15 Fentanyl Citrate (Fentanyl 2ml Vial) 25 mcg PRN Q3HRS PRN 09/17/19 17:00 09/18/19 16:59 DC 09/17/19 18:31 25 MCG Fish Oil (Fish Oil) 1,000 mg DAILY 09/18/19 09:00 09/21/19 09:12 1,000 MG Insulin Glargine (Lantus Syringe) 8 unit QHS 09/17/19 21:00 09/21/19 21:24 8 UNIT Insulin Human Lispro (HumaLOG) 0-7 UNITS TIDACHC 09/17/19 21:00 09/18/19 08:30 DC 09/17/19 22:52 2 UNITS Lactobacillus Rhamnosus (Culturelle) 1 cap BID 09/18/19 21:00 09/21/19 21:18 1 CAP Linagliptin (Tradjenta) 5 mg DAILY 09/18/19 09:00 09/21/19 09:12 5 MG Lorazepam (Ativan Intensol) 2 mg PRN Q6HRS PRN 09/17/19 17:15 Meropenem 500 mg/ Sodium Chloride 50 ml @ 100 mls/hr Q12HR 09/18/19 11:30 09/21/19 21:13 100 MLS/HR Micafungin Sodium 100 mg/Dextrose 100 ml @ 100 mls/hr Q24H 09/18/19 12:00 09/21/19 13:12 100 MLS/HR Morphine Sulfate (Roxanol Conc) 4 mg PRN Q3HRS PRN 09/17/19 17:15 Multivitamins (Thera M Plus) 1 tab DAILY 09/18/19 09:00 09/21/19 09:12 1 TAB Ondansetron HCl (Zofran) 4 mg PRN Q6HRS PRN 09/18/19 08:30 Piperacillin Sod/ Tazobactam Sod (Zosyn Per Pharmacy) 1 each PRN DAILY PRN 09/17/19 17:45 UNV Sodium Chloride 1,000 ml @ 50 mls/hr Q20H 09/19/19 08:00 09/21/19 21:13 50 MLS/HR Tamsulosin HCl (Flomax) 0.4 mg QHS 09/17/19 21:00 09/21/19 21:18 0.4 MG Vancomycin HCl (Vanco Per Pharmacy) 1 each PRN DAILY PRN 09/18/19 10:15 09/18/19 10:08 DC Vancomycin HCl 1.25 gm/Sodium Chloride 250 ml @ 166.667 mls/hr 1X ONCE 09/17/19 18:00 09/17/19 19:29 DC 09/17/19 22:48 166.667 MLS/HR Lab Laboratory Tests Test 09/21/19 17:24 09/21/19 21:00 09/22/19 07:33 09/22/19 10:00 Glucose (Fingerstick) 183 mg/dL (70-99) 176 mg/dL (70-99) 120 mg/dL (70-99) White Blood Count 8.9 x10^3/uL (4.0-11.0) Red Blood Count 3.24 x10^6/uL (4.30-5.70) Hemoglobin 9.3 g/dL (13.0-17.5) Hematocrit 28.1 % (39.0-53.0) Mean Corpuscular Volume 87 fL (79-100) Mean Corpuscular Hemoglobin 29 pg (25-35) Mean Corpuscular Hemoglobin Concent 33 g/dL (31-37) Red Cell Distribution Width 18.5 % (11.5-14.5) Platelet Count 226 x10^3/uL (140-400) Neutrophils (%) (Auto) 81 % (31-73) Lymphocytes (%) (Auto) 9 % (24-48) Monocytes (%) (Auto) 7 % (0-9) Eosinophils (%) (Auto) 2 % (0-3) Basophils (%) (Auto) 1 % (0-3) Neutrophils # (Auto) 7.2 x10^3/uL (1.8-7.7) Lymphocytes # (Auto) 0.8 x10^3/uL (1.0-4.8) Monocytes # (Auto) 0.6 x10^3/uL (0.0-1.1) Eosinophils # (Auto) 0.2 x10^3/uL (0.0-0.7) Basophils # (Auto) 0.1 x10^3/uL (0.0-0.2) Erythrocyte Sedimentation Rate 5 (0-15) Sodium Level 141 mmol/L (136-145) Potassium Level 4.6 mmol/L (3.5-5.1) Chloride Level 109 mmol/L (98-107) Carbon Dioxide Level 23 mmol/L (21-32) Anion Gap 9 (6-14) Blood Urea Nitrogen 65 mg/dL (8-26) Creatinine 2.0 mg/dL (0.7-1.3) Estimated GFR (Cockcroft-Gault) 38.9 Glucose Level 153 mg/dL (70-99) Calcium Level 8.0 mg/dL (8.5-10.1) Test 09/22/19 11:18 Glucose (Fingerstick) 177 mg/dL (70-99) Results All relevant outside records, renal labs, imaging studies, telemetry/EKG's were reviewed. MUNDO PEOPLES MD Sep 22, 2019 12:52
[2019-09-22] MEDS: MEROPENEM 500 MG in IV NORMAL SALINE 50ML 50 ML IV SCH ×2 (13:37→21:58)
[2019-09-22] MEDS: OMEGA-3 FATTY ACIDS/FISH OIL 1,000 MG CAPSULE. PO SCH (13:39)
[2019-09-22] MEDS: LACTOBACILLUS RHAMNOSUS GG 1 CAPSULE. PO SCH ×2 (13:39→21:59)
[2019-09-22] MEDS: ASPIRIN 325 MG TABLET PO SCH (13:39)
[2019-09-22] MEDS: MULTIVITAMIN with MINERAL TABLET. PO SCH (13:39)
[2019-09-22] MEDS: LINAGLIPTIN 5 MG TABLET PO SCH (13:40)
[2019-09-22] MEDS: AMIODARONE HCL 200 MG TABLET. PO SCH (13:41)
[2019-09-22] MEDS: MICAFUNGIN 100 MG in IV DEXTROSE 5% 100ML 100 ML IV SCH (13:42)
[2019-09-22] MEDS: DAPTOmycin (GENERIC) IVPB 390 MG in IV NORMAL SALINE 50ML 50 ML IV SCH (13:43)
[2019-09-22] MEDS: IV NORMAL SALINE 1000ML BAG 1,000 ML IV SCH (14:03)
[2019-09-22] MEDS: HYDROcodone/APAP 5/325MG 1 TAB TABLET PO PRN (18:35)
[2019-09-22] MEDS: TAMSULOSIN 0.4 MG CAP.ER.24H. PO SCH (21:59)
[2019-09-22] MEDS: ATORVASTATIN CALCIUM 40 MG TABLET. PO SCH (21:59)
[2019-09-22] MEDS: INSULIN GLARGINE SYRINGE. SQ SCH (22:11)
[2019-09-23 03:09] VITALS: BP 136/59
[2019-09-23 07:00] VITALS: BP 119/62
[2019-09-23] MEDS: MEROPENEM 500 MG in IV NORMAL SALINE 50ML 50 ML IV SCH (08:42)
[2019-09-23] MEDS: ASPIRIN 325 MG TABLET PO SCH (08:42)
[2019-09-23] MEDS: OMEGA-3 FATTY ACIDS/FISH OIL 1,000 MG CAPSULE. PO SCH (08:42)
[2019-09-23] MEDS: MULTIVITAMIN with MINERAL TABLET. PO SCH (08:42)
[2019-09-23] MEDS: LACTOBACILLUS RHAMNOSUS GG 1 CAPSULE. PO SCH (08:42)
[2019-09-23] MEDS: LINAGLIPTIN 5 MG TABLET PO SCH (08:42)
[2019-09-23] MEDS: AMIODARONE HCL 200 MG TABLET. PO SCH (08:42)
[2019-09-23] MEDS: IV NORMAL SALINE 1000ML BAG 1,000 ML IV SCH (08:43)
--- NOTE | 2019-09-23 08:58 | PDOC3 ---
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 prev hospice DNR Final Diagnosis Problems Medical Problems: (1) Leukocytosis Status: Acute (2) Pressure ulcer Status: Acute (3) Unable to ambulate Status: Acute Brief Hospital Course Allergies Allergies Coded Allergies Type Severity Reaction Last Updated Verified No Known Drug Allergies 05/17/19 No Vital Signs Vital Signs Date Time Temp Pulse Resp B/P (MAP) Pulse Ox O2 Delivery O2 Flow Rate FiO2 09/23/19 08:42 71 119/62 09/23/19 07:00 98.0 20 97 Room Air 98.0 Lab Results Laboratory Tests Test 09/21/19 11:19 09/21/19 17:24 09/21/19 21:00 09/22/19 07:33 Glucose (Fingerstick) 162 mg/dL (70-99) 183 mg/dL (70-99) 176 mg/dL (70-99) 120 mg/dL (70-99) Test 09/22/19 10:00 09/22/19 11:18 09/22/19 16:48 09/22/19 20:45 White Blood Count 8.9 x10^3/uL (4.0-11.0) Red Blood Count 3.24 x10^6/uL (4.30-5.70) Hemoglobin 9.3 g/dL (13.0-17.5) Hematocrit 28.1 % (39.0-53.0) Mean Corpuscular Volume 87 fL (79-100) Mean Corpuscular Hemoglobin 29 pg (25-35) Mean Corpuscular Hemoglobin Concent 33 g/dL (31-37) Red Cell Distribution Width 18.5 % (11.5-14.5) Platelet Count 226 x10^3/uL (140-400) Neutrophils (%) (Auto) 81 % (31-73) Lymphocytes (%) (Auto) 9 % (24-48) Monocytes (%) (Auto) 7 % (0-9) Eosinophils (%) (Auto) 2 % (0-3) Basophils (%) (Auto) 1 % (0-3) Neutrophils # (Auto) 7.2 x10^3/uL (1.8-7.7) Lymphocytes # (Auto) 0.8 x10^3/uL (1.0-4.8) Monocytes # (Auto) 0.6 x10^3/uL (0.0-1.1) Eosinophils # (Auto) 0.2 x10^3/uL (0.0-0.7) Basophils # (Auto) 0.1 x10^3/uL (0.0-0.2) Erythrocyte Sedimentation Rate 5 (0-15) Sodium Level 141 mmol/L (136-145) Potassium Level 4.6 mmol/L (3.5-5.1) Chloride Level 109 mmol/L (98-107) Carbon Dioxide Level 23 mmol/L (21-32) Anion Gap 9 (6-14) Blood Urea Nitrogen 65 mg/dL (8-26) Creatinine 2.0 mg/dL (0.7-1.3) Estimated GFR (Cockcroft-Gault) 38.9 Glucose Level 153 mg/dL (70-99) Calcium Level 8.0 mg/dL (8.5-10.1) Glucose (Fingerstick) 177 mg/dL (70-99) 278 mg/dL (70-99) 252 mg/dL (70-99) Test 09/23/19 07:53 Glucose (Fingerstick) 171 mg/dL (70-99) Laboratory Tests Test 09/22/19 10:00 09/22/19 11:18 09/22/19 16:48 09/22/19 20:45 White Blood Count 8.9 x10^3/uL (4.0-11.0) Red Blood Count 3.24 x10^6/uL (4.30-5.70) Hemoglobin 9.3 g/dL (13.0-17.5) Hematocrit 28.1 % (39.0-53.0) Mean Corpuscular Volume 87 fL (79-100) Mean Corpuscular Hemoglobin 29 pg (25-35) Mean Corpuscular Hemoglobin Concent 33 g/dL (31-37) Red Cell Distribution Width 18.5 % (11.5-14.5) Platelet Count 226 x10^3/uL (140-400) Neutrophils (%) (Auto) 81 % (31-73) Lymphocytes (%) (Auto) 9 % (24-48) Monocytes (%) (Auto) 7 % (0-9) Eosinophils (%) (Auto) 2 % (0-3) Basophils (%) (Auto) 1 % (0-3) Neutrophils # (Auto) 7.2 x10^3/uL (1.8-7.7) Lymphocytes # (Auto) 0.8 x10^3/uL (1.0-4.8) Monocytes # (Auto) 0.6 x10^3/uL (0.0-1.1) Eosinophils # (Auto) 0.2 x10^3/uL (0.0-0.7) Basophils # (Auto) 0.1 x10^3/uL (0.0-0.2) Erythrocyte Sedimentation Rate 5 (0-15) Sodium Level 141 mmol/L (136-145) Potassium Level 4.6 mmol/L (3.5-5.1) Chloride Level 109 mmol/L (98-107) Carbon Dioxide Level 23 mmol/L (21-32) Anion Gap 9 (6-14) Blood Urea Nitrogen 65 mg/dL (8-26) Creatinine 2.0 mg/dL (0.7-1.3) Estimated GFR (Cockcroft-Gault) 38.9 Glucose Level 153 mg/dL (70-99) Calcium Level 8.0 mg/dL (8.5-10.1) Glucose (Fingerstick) 177 mg/dL (70-99) 278 mg/dL (70-99) 252 mg/dL (70-99) Test 09/23/19 07:53 Glucose (Fingerstick) 171 mg/dL (70-99) Brief Hospital Course Mr. Jacome is a 84 old AA male who is bed bound and had a huge sacral and bacteremia that we treated and took time for cx to come out with identfcn and sensitivities, Took 6 days, SNU today with abx of choice form ID< DNR< PRev hospice, Rx on chart PLan is SNU then possibly hospice, I had no active issues with him during the 6 days i took care of him consults: iD refer to above dx to have an idea of his course Discharge Information Condition at Discharge: Improved, Stable Disposition/Orders: Other (snu) Scheduled Amiodarone Hcl (Amiodarone Hcl) 200 Mg Tablet, 200 MG PO DAILY for arrythmia, (Reported) Entered as Reported by: MARTITA SHAFFER RN on 07/03/19 1156 Last Action: Continued on 09/17/191712 by RITIKA COLLADO MD Aspirin (Aspirin) 325 Mg Tablet, 325 MG PO DAILYWBKFT for CAD for 30 Days, #30 Prescribed by: RITIKA COLLADO MD on 05/24/19 1038 Last Action: Continued on 09/17/191712 by RITIKA COLLADO MD Atorvastatin Calcium (Atorvastatin Calcium) 80 Mg Tablet, 40 MG PO DAILY for other, (Reported) Entered as Reported by: TRICIA REED RN on 05/17/19 1917 Last Action: Converted on 09/17/191712 by RITIKA COLLADO MD Folic Acid/Multivits-Min/Lut (Centrum Silver Chewable Tablet) 1 Each Tab.chew, 1 EACH PO DAILY08 for other, (Reported) Entered as Reported by: ALIZA FELIPE on 06/06/19 1654 Last Action: Converted on 09/17/191712 by RITIKA COLLADO MD Furosemide (Furosemide) 40 Mg Tablet, 40 MG PO DAILY for CHF, (Reported) Entered as Reported by: MARTITA SHAFFER RN on 07/03/19 1204 Last Action: HELD on 09/18/19 0829 by MARITA VELAZQUEZ Insulin Lispro (Humalog) 100 Unit/1 Ml Insuln.pen, 0 UNITS SQ TIDWMEALS for DM2 for 30 Days, #1 For BG 151-200 - 4u 201-250 - 5u 251-300 - 7u 301-350 - 9u >351 - Call MD Prescribed by: RITIKA COLLADO MD on 05/24/19 1038 Last Action: Reviewed on 09/18/19828 by MARITA VELAZQUEZ Linagliptin (Tradjenta) 5 Mg Tablet, 5 MG PO DAILY for TYPE 2 DIABETES, (Reported) Entered as Reported by: ALIZA FELIPE on 06/06/191653 Last Action: Continued on 09/18/19828 by MARITA VELAZQUEZ [place]-3 Fatty Acids/Fish Oil (Fish Oil 1,000 Mg Softgel) 1 Each Capsule, 1 EACH PO DAILY for other, (Reported) Entered as Reported by: TRICIA REED RN on 05/17/191916 Last Action: Converted on 09/17/191712 by RITIKA COLLADO MD Potassium Chloride (Potassium Chloride) 10 Meq Tablet.er, 10 MEQ PO DAILY for other, (Reported) Entered as Reported by: ALIZA FELIPE on 06/06/191653 Last Action: HELD on 09/18/19828 by MARITA VELAZQUEZ Tamsulosin Hcl (Flomax) 0.4 Mg Cap.er.24h, 0.4 MG PO QHS for BPH for 30 Days, #30 Prescribed by: RITIKA COLLADO MD on 05/24/191037 Last Action: Continued on 09/17/191712 by RITIKA COLLADO MD Scheduled PRN Hydrocodone Bit/Acetaminophen (Hydrocodone-Apap 5-325 ) 1 Tab Tablet, 1 TAB PO PRN Q4HRS PRN for MODERATE PAIN, #20 Prescribed by: MARITA VELAZQUEZ on 09/21/19727 Lorazepam (Lorazepam Intensol) 2 Mg/1 Ml Oral.conc, 2 MG SL PRN Q6HRS PRN for ANXIETY / AGITATION for 10 Days Prescribed by: MARITA VELAZQUEZ on 09/21/19727 Morphine Sulfate (Morphine Sulfate) 100 Mg/5 Ml Solution, 4 MG SL PRN Q3HRS PRN for PAIN for 10 Days Prescribed by: MARITA VELAZQUEZ on 09/21/19727 Discontinued Medications Lorazepam (Lorazepam Intensol) 2 Mg/1 Ml Oral.conc, 2 MG SL PRN Q6HRS PRN for ANXIETY / AGITATION for 30 Days, #1 Prescribed by: RITIKA COLLADO MD on 07/03/19 4810 Last Action: Continued on 09/17/19 1713 by MD CAROLINE MIDDLETON CHERRIE Y MD Sep 23, 2019 08:58
[2019-09-23 11:00] VITALS: BP 95/51
[2019-09-23] MEDS: MICAFUNGIN 100 MG in IV DEXTROSE 5% 100ML 100 ML IV SCH (12:00)
--- NOTE | 2019-09-23 12:29 | NUR ---
Discharge Note: PT DISCHARGED TO [facility]. PT LEFT FACILITY VIA [facility] AT 1225. PT STABLE AND ALERT UPON DISCHARGE. PT PIV REMOVED FROM L FA WITHOUT COMPLICATIONS, BANDAGE APPLIED. PT DISCHARGED WITH 16F [facility]AL[facility] CATH IN PLACE WITH 30CC BALLOON. WOUND PICTURES TAKEN. REPORT CALLED TO CRISTOFER WILCOX AT [facility], NO CONCERNS VOICED AT THIS TIME. FOLLOW-UP INSTRUCTIONS, DISCHARGE MEDICATIONS, AND DISCHARGE INSTRUTIONS DISCUSSED. PT LEFT WITH ALL PERSONAL BELONGINGS. ECDRIC BRINK Discharge instructions and discharge home medications reviewed with Patient and a copy given. All questions have been answered and understanding verbalized.
== END 2019-09-23 12:47 | DRG 871 ==
LOC: ER 14:50 → 5 SOUTH 16:04
PROVIDERS: ADMIT Internal Medicine; ATTEND Internal Medicine
DX: A41.9 Sepsis, unspecified organism (principal); L89.153 Pressure ulcer of sacral region, stage 3; N17.0 Acute kidney failure with tubular necrosis; I13.0 Hypertensive heart and chronic kidney disease with heart failure and stage 1 through stage 4 chronic kidney disease, or unspecified chronic kidney disease; I50.22 Chronic systolic (congestive) heart failure; L03.90 Cellulitis, unspecified; E87.5 Hyperkalemia; D63.8 Anemia in other chronic diseases classified elsewhere; E11.22 Type 2 diabetes mellitus with diabetic chronic kidney disease; E11.42 Type 2 diabetes mellitus with diabetic polyneuropathy; E11.65 Type 2 diabetes mellitus with hyperglycemia; E78.5 Hyperlipidemia, unspecified; E87.6 Hypokalemia; I25.10 Atherosclerotic heart disease of native coronary artery without angina pectoris; I25.5 Ischemic cardiomyopathy; I48.91 Unspecified atrial fibrillation; L89.159 Pressure ulcer of sacral region, unspecified stage; M06.9 Rheumatoid arthritis, unspecified; M19.90 Unspecified osteoarthritis, unspecified site; N18.2 Chronic kidney disease, stage 2 (mild); N40.1 Benign prostatic hyperplasia with lower urinary tract symptoms; R62.7 Adult failure to thrive; Z66 Do not resuscitate; Z74.01 Bed confinement status; Z83.3 Family history of diabetes mellitus; Z87.442 Personal history of urinary calculi; Z95.1 Presence of aortocoronary bypass graft
CPT/HCPCS: 36415; 71045; 76770; 80048; 80053; 81001; 82962; 83605; 85007; 85025; 85651; 87040; 87077; 87205; 96374; 96375; J0696; J0878; J1815; J2185; J2248; J3010; J3370; J7030; J7040; J7050; 92526; 92610; 97110; 99285-25; G0378